=== PATIENT | male | born 1930 | race Caucasian/White ===

== ENCOUNTER → 2016-08-28 | Outpatient (CLI) | payer MEDICARE ==
[2016-08-28 08:19] LABS: Basophils # (A) 0.1 k/uL (0-0.2); Basophils % (A) 1 %; CH 28.2; CHCM 32.4; Eosinophils # (A) 0.3 k/uL (0-0.7); Eosinophils % (A) 4 %; HCT 44.4 % (39.0-53.0); HDW 2.86; HGB 14.2 gm/dL (13.0-17.5); Luc # (Auto) 0.14; Luc % (Auto) 2; Lymphocytes # (A) 1.2 k/uL (1.0-4.8); Lymphocytes % (A) 17 %; MCV 87.4 fL (80.0-100.0); Mean Platelet Volume 6.5; Monocytes # (A) 0.5 k/uL (0-1.0); Monocytes % (A) 7 %; Neutrophils # (A) 4.7 k/uL (1.3-7.7); Neutrophils % (A) 69 %; RBC 5.08 m/uL (4.30-5.90); WBC 6.8 k/uL (3.8-10.6); WBC (Perox) 7.17
[2016-08-28 08:47] LABS: ALT 23 U/L (21-72); AST 28 U/L (17-59); Alkaline Phosphatase 87 U/L (38-126); Anion Gap 11 mmol/L; Blood Urea Nitrogen 16 mg/dL (9-20); Calcium 8.8 mg/dL (8.4-10.2); Carbon Dioxide 27 mmol/L (22-30); Chloride 106 mmol/L (98-107); Cholesterol 102 mg/dL (<200); Glucose 98 mg/dL (74-99); HDL Cholesterol 33 mg/dL (40-60); Non-African American GFR(MDRD) >60 (>60 ml/min/1.73 sqM); Potassium 4.7 mmol/L (3.5-5.1); Sodium 144 mmol/L (137-145); Total Bilirubin 0.7 mg/dL (0.2-1.3); Total Protein 6.7 g/dL (6.3-8.2); Triglycerides 62 mg/dL (<150)
[2016-08-28 10:05] LABS: Prostate Specific Antigen 1.37 ng/mL (0.00-4.00)
== END ==
LOC: LABWHC1 07:44
PROVIDERS: ATTEND Family Medicine
DX: E78.5 Hyperlipidemia, unspecified (principal); Z12.5 Encounter for screening for malignant neoplasm of prostate
CPT/HCPCS: 36415; 80053; 80061; 84153; 84443; 85025

== ENCOUNTER → 2016-10-14 | Outpatient (CLI) | payer MEDICARE ==
--- NOTE | 2016-10-14 11:52 | US ---
EXAMINATION TYPE: US thyroid st tissue head/neck DATE OF EXAM: 10/14/2016 11:13 AM COMPARISON: Prior thyroid ultrasound February 25, 2016. CLINICAL HISTORY: E04.1 Thyroid Nodules. GLAND SIZE: Right Lobe: 3.7 x 1.5 x 1.7 cm Overall Parenchyma: homogenous Left Lobe: 3.7 x 1.4 x 2.0 cm Overall Parenchyma: homogeneous Isthmus Thickness: 0.4 cm NODULES RIGHT: # of nodules measured on right: 2 1. 1.0 X 0.9 x 0.8 cm isoechoic solid nodule at the upper pole with poorly defined margins . This nodule is taller than wide and shows intranodular vascularity. Prior size: 1.8 x 0.9 x 1.3 cm 2. 0.9 X 0.7 x 0.9 cm echogenic solid nodule at the lower pole with poorly defined margins . This n odule is wider than tall and shows intranodular vascularity. Prior size: 1.3 x 1.1 x 1.2 cm LEFT: # of nodules measured on left: 0 ISTHMUS: # of nodules measured in the isthmus: 0 Bilateral neck scanned, no evidence of lymphadenopathy. Thyroid gland remains somewhat small in size and fairly homogeneous in echotexture with 2 right-sided solid nodules felt stable in size and appearance. No new solid or cystic nodules are identified on t paco's study. IMPRESSION: Thyroid gland remains somewhat small in size with stable right-sided solid nodules, no new greater th an 1 cm solid or cystic nodules are identified.
== END ==
LOC: RADUSWWP 10:53
PROVIDERS: ATTEND Surgery
DX: E04.2 Nontoxic multinodular goiter (principal)
CPT/HCPCS: 76536

== ENCOUNTER 2016-12-11 17:59 | Emergency (ER) | payer MEDICARE ==
[2016-12-11 18:23] VITALS: TEMP 97.6
--- NOTE | 2016-12-11 18:47 | ED ---
Fall HPI - General Chief Complaint: Fall Stated Complaint: Fall-Shoulder Pain Time Seen by Provider: 12/11/16 18:27 Source: patient, family, RN notes reviewed Mode of arrival: ambulatory - History of Present Illness Initial Comments: Patient is a 86-year-old male since emergency room for evaluation of fall injury. Patient's daughter is present with patient. Patient's daughter states that patient had a procedure done earlier this morning to remove a lesion over his left eyebrow. Patient's daughter states that they gave patient valium. Patient's daughter states that patient was very unsteady on his feet afterwards because of the Valium. Patient's daughter states that patient was in another room around noon and she heard a thump. Patient states that he was getting off of his electric chair and fell over landing on his right shoulder. Patient states he does not think he hit his head. Patient states that the shoulder pain has been getting worse throughout the day. Patient's Daughter States after the Incident Happened Patient Was Bleeding a Little More from the Incision Site Where the Lesion Was Removed. Patient's daughter states that she was told that patient did not hit his head. patient denies headache, dizziness, changes in vision, neck pain, chest pain, shortness of breath. Patient states that 3 out of 10 right shoulder pain. Patient states pain is worse with movement. Patient denies elbow, forearm or wrist pain. Patient denies paresthesias. Patient denies any other injuries during incident. - Related Data Home Medications Medication Instructions Recorded Confirmed Albuterol Inhaler [Ventolin Hfa 2 puff INHALATION RT-DAILY PRN 08/03/14 12/11/16 Inhaler] Aspirin EC [Ecotrin] 325 mg PO DAILY 08/03/14 12/11/16 Docusate Sodium [Dulcolax Stool 200 mg PO DAILY 08/03/14 12/11/16 Softener] Doxycycline [Vibramycin] 50 mg PO DAILY 08/03/14 12/11/16 Enalapril Maleate [Vasotec] 10 mg PO DAILY 08/03/14 12/11/16 HYDROcodone/APAP 5-325MG [[place] 1 tab PO DAILY PRN 08/03/14 12/11/16 5-325] Multivitamin [Men's Multi-Vitamin] 1 tab PO DAILY 08/03/14 12/11/16 Omeprazole [PriLOSEC] 20 mg PO DAILY 08/03/14 12/11/16 Fluticasone/Salmeterol [Advair 1 inhalation PO RT-BID 07/06/15 12/11/16 250-50 Diskus] Clopidogrel [Plavix] 75 mg PO DAILY 04/07/16 12/11/16 Atorvastatin Calcium [Lipitor] 40 mg PO HS 12/11/16 12/11/16 Previous Rx's Medication Instructions Recorded Nitroglycerin Sl Tabs [Nitrostat] 0.4 mg SUBLINGUAL Q5M PRN #25 tab 08/05/14 Allergies Allergy/AdvReac Type Severity Reaction Status Date / Time adhesive Allergy Rash/Hives Verified 12/11/16 18:51 Review of Systems ROS Statement: Those systems with pertinent positive or pertinent negative responses have been documented in the HPI. ROS Other: All systems not noted in ROS Statement are negative. Past Medical History Past Medical History: Chest Pain / Angina, COPD, GERD/Reflux, Hypertension Additional Past Medical History / Comment(s): 08/04/14 Pt admitted to floor following cardiac cath with PTCA. History of Any Multi-Drug Resistant Organisms: None Reported Past Surgical History: Cholecystectomy, Heart Catheterization, Hernia Repair, Joint Replacement, Orthopedic Surgery Additional Past Surgical History / Comment(s): 08/04/14 Cardiac cath with PTCA. LEFT FEMUR ORIF, PARTIAL LT HIP REPLACEMENT, NIKO CAT SX Past Anesthesia/Blood Transfusion Reactions: No Reported Reaction Past Psychological History: No Psychological Hx Reported Additional Psychological History / Comment(s): Pt states he lives in a home with his daughter-Cecille. He states he is independent and performs his own ADL's. He still drives a car but not at nite. He uses a cane if he needs to walk quite a distance. He has a scooter that he can use for really long distances but rarely needs to. Smoking Status: Former smoker Past Alcohol Use History: Daily Additional Past Alcohol Use History / Comment(s): SMOKES A PIPE Past Drug Use History: None Reported - Past Family History Father Family Medical History: No Reported History Mother Family Medical History: No Reported History General Exam - General Exam Comments Initial Comments: sitting in exam room, no distress. Limitations: no limitations General appearance: alert, in no apparent distress Head exam: Present: atraumatic, normocephalic, normal inspection Eye exam: Present: normal appearance ENT exam: Present: normal exam Neck exam: Present: normal inspection Respiratory exam: Present: normal lung sounds bilaterally. Absent: respiratory distress Cardiovascular Exam: Present: regular rate, normal rhythm, normal heart sounds Right Shoulder Exam: Present: tenderness (tenderness on palpating over the proximal humerus and anterior shoulder joint.). Absent: full ROM (patient can abduct and adduct about 90 without pain), tenderness over AC joint Upper Arm exam: Present: normal inspection Elbow exam: Present: normal inspection Forearm Wrist exam: Present: normal inspection Hand Wrist exam: Present: normal inspection Neuro motor exam: Present: wrist extension intact, thumb opposition intact, thumb IP flexion intact, thumb adduction intact, fingers 2-5 abduction intact Vascular: Present: normal capillary refill (capillary refill less than 2 seconds ), radial pulse (2+), ulnar pulse (2+). Absent: vascular compromise Back exam: Present: normal inspection Neurological exam: Present: alert, oriented X3, CN II-XII intact Psychiatric exam: Present: normal affect, normal mood Skin exam: Present: warm, dry, intact, normal color. Absent: rash Course Vital Signs 12/11/16 18:18 Temperature 97.6 F Pulse Rate 67 Respiratory 20 Rate Blood Pressure 131/80 O2 Sat by Pulse 95 Oximetry Medical Decision Making - Medical Decision Making patient is a 86-year-old male presents emergency room for evaluation of fall injury. Patient complaining of mainly right shoulder pain. No dislocation or deformity noted. X-ray showed no acute findings. CT of brain and C-spine showed no acute findings. Advised patient take Tylenol and to rest and ice and follow-up with primary care provider. Patient and daughter state they understand everything I discussed with them. Return parameters discussed. Case discussed with Dr. Reece. - Radiology Data Radiology results: report reviewed, image reviewed Disposition Clinical Impression: Fall, Contusion of right shoulder Disposition: HOME SELF-CARE Condition: Good Instructions: Fall Prevention for Older Adults (ED), Shoulder Sprain (ED) Additional Instructions: Ice on and off for 10-15 minutes for the next 24-48 hours. Take Tylenol as needed for pain. Please follow-up with primary care provider if symptoms are not improving. If new symptoms develop or symptoms worsen, please return to the ER. Referrals: Bowen Guevara MD [Primary Care Provider] - 1-2 days Time of Disposition: 20:46
--- NOTE | 2016-12-11 20:00 | CT ---
EXAMINATION TYPE: CT brain nelda blakely DATE OF EXAM: 12/11/2016 COMPARISON: NONE HISTORY: Fall today. Patient states no head injury. CT DLP: 1470.00 mGycm Automated exposure control for dose reduction was used. TECHNIQUE: CT scan of the head and cervical spine are performed without contrast. FINDINGS: There is cerebral cortical atrophy. There is no mass effect nor midline shift. There is n o sign of intracranial hemorrhage. The calvarium is intact. There is mild white matter hypodensity. The cervical vertebra have normal alignment. There is narrowing at C5-6 and C6-7 disc spaces. There i s spurring of the endplates from C4 to T1. Facet joints are intact. There is no sign of a fracture. S kull base is intact. I see no bony destructive process. IMPRESSION: Cerebral atrophy. Mild chronic small vessel ischemia. No acute intracranial abnormality. Spondylotic changes in the lower cervical spine. No fracture seen.
--- NOTE | 2016-12-11 20:05 | XR ---
EXAMINATION TYPE: XR shoulder complete RT DATE OF EXAM: 12/11/2016 COMPARISON: NONE HISTORY: Shoulder pain TECHNIQUE: 2 views FINDINGS: There is osteopenia. I see no fracture. Glenohumeral joint is anatomic. There is some calci fication at the inferior glenoid labrum. AC joint is intact. IMPRESSION: Calcification related to some degenerative changes. No fracture seen.
--- NOTE | 2016-12-11 20:06 | XR ---
EXAMINATION TYPE: XR humerus RT DATE OF EXAM: 12/11/2016 COMPARISON: NONE HISTORY: Pain TECHNIQUE: 4 views FINDINGS: I see no fracture nor dislocation. Shoulder joint and elbow joint appear intact. There is s purring on the olecranon process of the ulna. IMPRESSION: Spurring on the proximal ulna. No fracture seen.
[2016-12-11 20:58] VITALS: BP 154/84; PULSE 58; RESP 18
== END 2016-12-11 20:58 | disposition home or self-care (01) ==
LOC: EC 17:59
DX: S40.011A Contusion of right shoulder, initial encounter (principal); K21.9 Gastro-esophageal reflux disease without esophagitis; I10 Essential (primary) hypertension; J44.9 Chronic obstructive pulmonary disease, unspecified; Z87.891 Personal history of nicotine dependence; Z79.82 Long term (current) use of aspirin; Z79.51 Long term (current) use of inhaled steroids; Z79.01 Long term (current) use of anticoagulants; Z79.899 Other long term (current) drug therapy; Z91.048 Other nonmedicinal substance allergy status; Z98.890 Other specified postprocedural states; W19.XXXA Unspecified fall, initial encounter
CPT/HCPCS: 70450; 72125; 99284

== ENCOUNTER 2016-12-13 10:26 | Emergency (ER) | payer MEDICARE ==
[2016-12-13] MEDS ORDERED: MORPHINE SULFATE 4 MG/ML SYRINGE IV STA (10:48)
[2016-12-13] MEDS ORDERED: ONDANSETRON 4 MG/2 ML VIAL IVP STA (10:48)
[2016-12-13] MEDS ORDERED: SODIUM CHLORIDE 0.9% 1,000 ML IV STA (10:49)
--- NOTE | 2016-12-13 10:51 | ED ---
General Adult HPI - General Chief complaint: Abdominal Pain Stated complaint: abdominal pain Time Seen by Provider: 12/13/16 10:40 Source: family, RN notes reviewed Mode of arrival: wheelchair - History of Present Illness Initial comments: Patient 86-year-old male who presents emergency room today with a chief complaint of right-sided dental pain that started yesterday. He does admit some discomfort in the right side of the abdomen. States he did have a fall 2 days ago. States does not recall falling in this site was seen here in the emergency room for some left shoulder pain also had a CT of his head. Since fall occurred because he was on Valium after procedure and was a little unsteady on his feet. Patient denies any headache today. He does admit that he 's had a few episodes of nausea vomiting. States he does have pain in the right lateral aspect of the upper abdomen and lower ribs. States it's tender on palpation and with certain movements. Admits that it's worse when he coughs or sneezes. He states feels like broken ribs that is had in the past. He denies any other complaints or symptoms at this time. Patient denies any recent fever, chills, shortness of breath, chest pain, back pain, numbness or tingling , dysuria or hematuria, constipation or diarrhea, headaches or visual changes, or any other complaints. - Related Data Home Medications Medication Instructions Recorded Confirmed Albuterol Inhaler [Ventolin Hfa 2 puff INHALATION RT-DAILY PRN 08/03/14 12/13/16 Inhaler] Aspirin EC [Ecotrin] 325 mg PO DAILY 08/03/14 12/13/16 Docusate Sodium [Dulcolax Stool 200 mg PO DAILY 08/03/14 12/13/16 Softener] Doxycycline [Vibramycin] 50 mg PO DAILY 08/03/14 12/13/16 Enalapril Maleate [Vasotec] 5 mg PO DAILY 08/03/14 12/13/16 HYDROcodone/APAP 5-325MG [[place] 1 tab PO DAILY PRN 08/03/14 12/13/16 5-325] Multivitamin [Men's Multi-Vitamin] 1 tab PO DAILY 08/03/14 12/13/16 Omeprazole [PriLOSEC] 20 mg PO DAILY 08/03/14 12/13/16 Fluticasone/Salmeterol [Advair 1 inhalation PO RT-BID 07/06/15 12/13/16 250-50 Diskus] Clopidogrel [Plavix] 75 mg PO DAILY 04/07/16 12/13/16 Atorvastatin Calcium [Lipitor] 40 mg PO HS 12/11/16 12/13/16 Previous Rx's Medication Instructions Recorded Nitroglycerin Sl Tabs [Nitrostat] 0.4 mg SUBLINGUAL Q5M PRN #25 tab 08/05/14 Ciprofloxacin HCl [Cipro] 500 mg PO Q12HR #20 day 12/13/16 Hydrocodone/Acetaminophen [[place] 1 each PO Q6HR PRN #20 tab 12/13/16 5-325] Allergies Allergy/AdvReac Type Severity Reaction Status Date / Time adhesive Allergy Rash/Hives Verified 12/13/16 11:05 Review of Systems ROS Statement: Those systems with pertinent positive or pertinent negative responses have been documented in the HPI. ROS Other: All systems not noted in ROS Statement are negative. Past Medical History Past Medical History: Chest Pain / Angina, COPD, GERD/Reflux, Hypertension Additional Past Medical History / Comment(s): 08/04/14 Pt admitted to floor following cardiac cath with PTCA. History of Any Multi-Drug Resistant Organisms: None Reported Past Surgical History: Cholecystectomy, Heart Catheterization, Hernia Repair, Joint Replacement, Orthopedic Surgery Additional Past Surgical History / Comment(s): 08/04/14 Cardiac cath with PTCA. LEFT FEMUR ORIF, PARTIAL LT HIP REPLACEMENT, NIKO CAT SX Past Anesthesia/Blood Transfusion Reactions: No Reported Reaction Past Psychological History: No Psychological Hx Reported Additional Psychological History / Comment(s): Pt states he lives in a home with his daughter-Cecille. He states he is independent and performs his own ADL's. He still drives a car but not at nite. He uses a cane if he needs to walk quite a distance. He has a scooter that he can use for really long distances but rarely needs to. Smoking Status: Former smoker Past Alcohol Use History: Daily Additional Past Alcohol Use History / Comment(s): SMOKES A PIPE Past Drug Use History: None Reported - Past Family History Father Family Medical History: No Reported History Mother Family Medical History: No Reported History General Exam - General Exam Comments Initial Comments: General: The patient is awake and alert, in no distress, and does not appear acutely ill. Eye: Pupils are equal, round and reactive to light, extra-ocular movements are intact. No nystagmus. There is normal conjunctiva bilaterally. No signs of icterus. Ears, nose, mouth and throat: There are moist mucous membranes and no oral lesions. Neck: The neck is supple, there is no tenderness or JVD. Cardiovascular: There is a regular rate and rhythm. No murmur, rub or gallop is appreciated. Respiratory: Lungs are clear to auscultation, respirations are non-labored, breath sounds are equal. No wheezes, stridor, rales, or rhonchi. Gastrointestinal: Normal appearance of the abdomen. Normal bruising or ecchymosis. Normal bowel sounds. Abdomen soft on palpation. Mild tenderness in the right upper quadrant. No rebound tenderness. No guarding. No CVA tenderness. Musculoskeletal: Normal ROM. Normal appearance of the ribs. No obvious deformity. It is tender over the right lower lateral aspect. Strength 5/5. Sensation intact. Pulses equal bilaterally 2+. Neurological: A&O x 3. CN II-XII intact, There are no obvious motor or sensory deficits. Coordination appears grossly intact. Speech is normal. Skin: Skin is warm and dry and no rashes or lesions are noted. Psychiatric: Cooperative, appropriate mood & affect, normal judgment. Course Vital Signs 12/13/16 12/13/16 10:33 12:29 Temperature 97.2 F L Pulse Rate 75 60 Respiratory 20 20 Rate Blood Pressure 145/98 126/72 O2 Sat by Pulse 98 Oximetry Medical Decision Making - Medical Decision Making Case discussed in detail with attending physician Dr. Gramajo. Patient's labs been reviewed. Does show mildly elevated lipase greater than 600. Patient denies any history of pancreatitis. Patient's urinalysis does show some white cells as well. He denies any symptoms of dysuria or UTI. Patient's x-ray revealing no displaced fracture of the right ribs. CT of the abdomen and pelvis performed showing no acute abnormalities. Results were discussed with the patient. Options were discussed about admission. At this time patient states was like to go home. Patient will be discharged home he does have [place] that he takes at home brought has 2 tablets left. Given a short prescription pain medication. He is advised close follow-up the family doctor for repeat urinalysis and lipase testing. Advised return here to the emergency room if any symptoms increase or worsen or for any other concerns. Patient be placed on antibiotics cover for urinary tract infection. - Lab Data Result diagrams: 12/13/16 11:02 12/13/16 11:02 Lab Results 12/13/16 12/13/16 12/13/16 Range/Units 11:02 11:02 11:02 WBC 8.6 (3.8-10.6) k/uL RBC 4.66 (4.30-5.90) m/uL Hgb 13.4 (13.0-17.5) gm/dL Hct 41.3 (39.0-53.0) % MCV 88.8 (80.0-100.0) fL MCH 28.7 (25.0-35.0) pg MCHC 32.4 (31.0-37.0) g/dL RDW 16.2 H (11.5-15.5) % Plt Count 195 (150-450) k/uL Neutrophils % 80 % Lymphocytes % 8 % Monocytes % 8 % Eosinophils % 3 % Basophils % 1 % Neutrophils # 6.9 (1.3-7.7) k/uL Lymphocytes # 0.7 L (1.0-4.8) k/uL Monocytes # 0.7 (0-1.0) k/uL Eosinophils # 0.2 (0-0.7) k/uL Basophils # 0.0 (0-0.2) k/uL Anisocytosis Slight PT 11.5 (9.0-12.0) sec INR 1.2 (<1.1) APTT 24.6 (22.0-30.0) sec Sodium 140 (137-145) mmol/L Potassium 4.9 (3.5-5.1) mmol/L Chloride 108 H (98-107) mmol/L Carbon Dioxide 25 (22-30) mmol/L Anion Gap 7 mmol/L BUN 18 (9-20) mg/dL Creatinine 0.94 (0.66-1.25) mg/dL Est GFR (MDRD) Af Amer >60 (>60 ml/min/1.73 sqM) Est GFR (MDRD) Non-Af >60 (>60 ml/min/1.73 sqM) Glucose 91 (74-99) mg/dL Calcium 8.6 (8.4-10.2) mg/dL Total Bilirubin 0.7 (0.2-1.3) mg/dL AST 28 (17-59) U/L ALT 26 (21-72) U/L Alkaline Phosphatase 99 (38-126) U/L Total Protein 6.6 (6.3-8.2) g/dL Albumin 3.6 (3.5-5.0) g/dL Amylase 137 H (30-110) U/L Lipase 622 H (23-300) U/L Urine Color Urine Appearance (Clear) Urine pH (5.0-8.0) Ur Specific [place] (1.001-1.035) Urine Protein (Negative) Urine Glucose (UA) (Negative) Urine Ketones (Negative) Urine Blood (Negative) Urine Nitrite (Negative) Urine Bilirubin (Negative) Urine Urobilinogen (<2.0) mg/dL Ur Leukocyte Esterase (Negative) Urine RBC (0-5) /hpf Urine WBC (0-5) /hpf Urine Bacteria (None) /hpf Urine Mucus (None) /hpf 12/13/16 Range/Units 12:40 WBC (3.8-10.6) k/uL RBC (4.30-5.90) m/uL Hgb (13.0-17.5) gm/dL Hct (39.0-53.0) % MCV (80.0-100.0) fL MCH (25.0-35.0) pg MCHC (31.0-37.0) g/dL RDW (11.5-15.5) % Plt Count (150-450) k/uL Neutrophils % % Lymphocytes % % Monocytes % % Eosinophils % % Basophils % % Neutrophils # (1.3-7.7) k/uL Lymphocytes # (1.0-4.8) k/uL Monocytes # (0-1.0) k/uL Eosinophils # (0-0.7) k/uL Basophils # (0-0.2) k/uL Anisocytosis PT (9.0-12.0) sec INR (<1.1) APTT (22.0-30.0) sec Sodium (137-145) mmol/L Potassium (3.5-5.1) mmol/L Chloride (98-107) mmol/L Carbon Dioxide (22-30) mmol/L Anion Gap mmol/L BUN (9-20) mg/dL Creatinine (0.66-1.25) mg/dL Est GFR (MDRD) Af Amer (>60 ml/min/1.73 sqM) Est GFR (MDRD) Non-Af (>60 ml/min/1.73 sqM) Glucose (74-99) mg/dL Calcium (8.4-10.2) mg/dL Total Bilirubin (0.2-1.3) mg/dL AST (17-59) U/L ALT (21-72) U/L Alkaline Phosphatase (38-126) U/L Total Protein (6.3-8.2) g/dL Albumin (3.5-5.0) g/dL Amylase (30-110) U/L Lipase (23-300) U/L Urine Color Yellow Urine Appearance Cloudy (Clear) Urine pH 5.5 (5.0-8.0) Ur Specific [place] 1.039 H (1.001-1.035) Urine Protein Trace H (Negative) Urine Glucose (UA) Negative (Negative) Urine Ketones Negative (Negative) Urine Blood Negative (Negative) Urine Nitrite Positive (Negative) Urine Bilirubin Negative (Negative) Urine Urobilinogen <2.0 (<2.0) mg/dL Ur Leukocyte Esterase Large H (Negative) Urine RBC 5 (0-5) /hpf Urine WBC 76 H (0-5) /hpf Urine Bacteria Rare H (None) /hpf Urine Mucus Rare H (None) /hpf Disposition Clinical Impression: Contusion of rib, Elevated lipase, UTI (urinary tract infection) Disposition: HOME SELF-CARE Condition: Good Instructions: Rib Contusion (ED) Additional Instructions: Please use medication as discussed. Please follow-up with family doctor in the next 2 days. Please return to emergency room if the symptoms increase or worsen or for any other concerns. Prescriptions: Ciprofloxacin HCl [Cipro] 500 mg PO Q12HR #20 day Hydrocodone/Acetaminophen [[place] 5-325] 1 each PO Q6HR PRN #20 tab PRN Reason: Pain Referrals: Bowen Guevara MD [Primary Care Provider] - 1-2 days Time of Disposition: 13:15
[2016-12-13 11:12] LABS: Anisocytosis Slight; Basophils % (A) 1 %; CH 28.7; CHCM 32.5; Eosinophils # (A) 0.2 k/uL (0-0.7); Eosinophils % (A) 3 %; HCT 41.3 % (39.0-53.0); HDW 2.53; HGB 13.4 gm/dL (13.0-17.5); Luc # (Auto) 0.12; Luc % (Auto) 1; Lymphocytes # (A) 0.7 k/uL (1.0-4.8); Lymphocytes % (A) 8 %; MCH 28.7 pg (25.0-35.0); MCHC 32.4 g/dL (31.0-37.0); MCV 88.8 fL (80.0-100.0); Mean Platelet Volume 7.1; Monocytes # (A) 0.7 k/uL (0-1.0); Monocytes % (A) 8 %; Neutrophils # (A) 6.9 k/uL (1.3-7.7); Neutrophils % (A) 80 %; RBC 4.66 m/uL (4.30-5.90); RDW 16.2 % (11.5-15.5); WBC 8.6 k/uL (3.8-10.6); WBC (Perox) 8.97
[2016-12-13 11:20] LABS: INR 1.2 (<1.1)
[2016-12-13 11:21] LABS: Partial Thromboplastin Time 24.6 sec (22.0-30.0); Prothrombin Time 11.5 sec (9.0-12.0)
--- NOTE | 2016-12-13 11:24 | XR ---
EXAMINATION TYPE: XR ribs RT w pa chest x-ray DATE OF EXAM: 12/13/2016 CLINICAL HISTORY: Chest and right-sided rib pain after fall injury 2 days ago. TECHNIQUE: Single frontal view of the chest is obtained. A frontal and oblique images of the right-si ded ribs are acquired. COMPARISON: Chest x-ray July 06, 2015. FINDINGS: There is chronic emphysematous change without suspicious new focal air space opacity, pleu ral effusion, or pneumothorax seen. There is left greater than right bibasilar scarring and/or atele ctasis. The cardiac silhouette size is upper limits of normal with atherosclerotic and ectatic thorac ic aorta. Retrocardiac opacity consistent with moderate to large size hiatal hernia is redemonstrated . Osseous structures are demineralized. Dedicated images of the right-sided ribs show no convincing evidence of acute displaced right-sided r ib fracture. Cholecystectomy clips are noted. IMPRESSION: 1. Chronic changes without acute pulmonary process. 2. No acute displaced right-sided rib fractures are evident.
[2016-12-13 11:29] LABS: ALT 26 U/L (21-72); AST 28 U/L (17-59); Alkaline Phosphatase 99 U/L (38-126); Amylase 137 U/L (30-110); Anion Gap 7 mmol/L; Blood Urea Nitrogen 18 mg/dL (9-20); Calcium 8.6 mg/dL (8.4-10.2); Carbon Dioxide 25 mmol/L (22-30); Chloride 108 mmol/L (98-107); Glucose 91 mg/dL (74-99); Non-African American GFR(MDRD) >60 (>60 ml/min/1.73 sqM); Potassium 4.9 mmol/L (3.5-5.1); Sodium 140 mmol/L (137-145); Total Bilirubin 0.7 mg/dL (0.2-1.3); Total Protein 6.6 g/dL (6.3-8.2)
[2016-12-13] MEDS ORDERED: RX INFO: IV CONTRAST WAS GIVEN 1 EACH MISC MISCELLANE PRN (11:35)
--- NOTE | 2016-12-13 12:12 | CT ---
EXAMINATION TYPE: CT abdomen pelvis w con DATE OF EXAM: 12/13/2016 COMPARISON: NONE HISTORY: Generalized abdominal pain not further specified per order. CT DLP: 516 mGycm, Automated Exposure Control for Dose Reduction was Utilized. CONTRAST: CT scan of the abdomen and pelvis is performed without oral but with IV Contrast, patient injected wi th 100 mL of Omnipaque 300. FINDINGS: LUNG BASES: Dependent atelectatic change is present bilaterally. LIVER/GB: Cholecystectomy clips are noted. PANCREAS: No significant abnormality is seen. SPLEEN: Scattered calcifications throughout the spleen are present product of old granulomatous disea se. A few small splenules in splenic hilum are present. ADRENALS: No significant abnormality is seen. KIDNEYS: No significant abnormality is seen. BOWEL: There is large hiatal hernia with inversion or malrotation of herniated stomach is greater cur vature is more cranial in location. Evaluation bowel is suboptimal secondary to lack of enteric contr ast. No suspicious small or large bowel dilatation is seen. Sigmoid colonic diverticulosis is present . There is no convincing CT evidence for acute diverticulitis. PROSTATE/SEMINAL VESICLES: No gross abnormality seen. LYMPH NODES: No greater than 1cm abdominal or pelvic lymph nodes are appreciated. OSSEOUS STRUCTURES: Metallic hardware from left hip arthroplasty is seen, this causes adjacent streak artifact limiting evaluation of pelvic structures. There is well-defined ossific fragmentation from the greater trochanter may reflect old trauma. Osseous structures are demineralized. Moderate multile amy spurring of the spine is present. There is hemangioma at L2 level noted anteriorly. OTHER: There is mild to moderate calcified atherosclerotic change of aorta extending into branch vess els. IMPRESSION: No significant acute finding is seen to account for patient's clinical symptoms. There i s redemonstration of large hiatal hernia containing malrotated stomach. No bowel obstruction is seen. There is sigmoid colonic diverticulosis without convincing CT evidence for diverticulitis. There is evidence of old granulomatous disease.
[2016-12-13 13:06] LABS: Appearance,Urine Cloudy (Clear); Bacteria,Urine Rare /hpf; Bilirubin,Urine Negative (Negative); Glucose,Urine (UA) Negative (Negative); Ketones,Urine Negative (Negative); Leukocyte Esterase,Urine Large (Negative); Mucus,Urine Rare /hpf; Nitrite,Urine Positive (Negative); PH, Urine 5.5 (5.0-8.0); Particle Count 48277; Protein,Urine Trace (Negative); RBC,Urine 5 /hpf (0-5); Specific Gravity,Urine 1.039 (1.001-1.035); UA Billing (MACRO vs. MICRO) MICRO; Urobilinogen,Urine <2.0 mg/dL (<2.0); WBC,Urine 76 /hpf (0-5)
[2016-12-13 13:50] VITALS: BP 113/56; PULSE 76; RESP 18; TEMP 98.8
== END 2016-12-13 13:36 | disposition home or self-care (01) ==
LOC: EC 10:26
DX: S20.211A Contusion of right front wall of thorax, initial encounter (principal); N39.0 Urinary tract infection, site not specified; R74.8 Abnormal levels of other serum enzymes; K08.89 Other specified disorders of teeth and supporting structures; R10.11 Right upper quadrant pain; R11.2 Nausea with vomiting, unspecified; I10 Essential (primary) hypertension; K21.9 Gastro-esophageal reflux disease without esophagitis; J44.9 Chronic obstructive pulmonary disease, unspecified; Z86.79 Personal history of other diseases of the circulatory system; Z79.82 Long term (current) use of aspirin; Z79.02 Long term (current) use of antithrombotics/antiplatelets; Z79.51 Long term (current) use of inhaled steroids; Z79.899 Other long term (current) drug therapy; Z91.048 Other nonmedicinal substance allergy status; Z95.818 Presence of other cardiac implants and grafts; Z90.49 Acquired absence of other specified parts of digestive tract; W18.30XA Fall on same level, unspecified, initial encounter
CPT/HCPCS: 36415; 80053; 82150; 83690; 85025; 85610; 85730; 81001; 71101; 74177; 99284; 96374; 96375; 96361 ×2; J2270; J2405; Q9967

== ENCOUNTER → 2017-06-04 | Outpatient (CLI) | payer MEDICARE ==
[2017-06-04 08:04] LABS: ALT 35 U/L (21-72); AST 32 U/L (17-59); Alkaline Phosphatase 89 U/L (38-126); Anion Gap 5 mmol/L; Blood Urea Nitrogen 15 mg/dL (9-20); Calcium 8.7 mg/dL (8.4-10.2); Carbon Dioxide 28 mmol/L (22-30); Chloride 107 mmol/L (98-107); Cholesterol 102 mg/dL (<200); Glucose 100 mg/dL (74-99); HDL Cholesterol 36 mg/dL (40-60); Non-African American GFR(MDRD) >60 (>60 ml/min/1.73 sqM); Potassium 4.6 mmol/L (3.5-5.1); Sodium 140 mmol/L (137-145); Total Bilirubin 0.5 mg/dL (0.2-1.3); Total Protein 6.5 g/dL (6.3-8.2)
== END | disposition home or self-care (01) ==
LOC: LABWHC1 06:52
PROVIDERS: ATTEND Internal Medicine Interventional Cardiology
DX: E78.2 Mixed hyperlipidemia (principal)
CPT/HCPCS: 36415; 80053; 80061

== ENCOUNTER 2017-08-12 13:37 | Emergency (ER) | payer MEDICARE, OTHER ==
[2017-08-12 13:44] VITALS: PULSE 56
[2017-08-12] MEDS ORDERED: HYDROcodone/APAP 5-325MG 1 EACH TAB PO STA (13:59)
--- NOTE | 2017-08-12 14:40 | XR ---
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 The lungs demonstrate subsegmental atelectasis at the left lung base. Calcified lymph node in the left hilum. Underlying COPD suggested . Diffuse osteopenia noted. Chronic appearing deformity involving the anterolateral left eighth rib. There is a deformity involvi ng the anterolateral left fifth rib which may represent a nondisplaced hairline fracture. IMPRESSION: 1. Correlate for point tenderness anterolateral margin left fifth rib for minimally displaced fractur e.
--- NOTE | 2017-08-12 15:42 | ED ---
Fall HPI - General Chief Complaint: Fall Stated Complaint: Fall/SOB/Rib pain Time Seen by Provider: 08/12/17 13:51 Source: patient, family Mode of arrival: wheelchair - History of Present Illness Initial Comments: This 86-year-old white male presents complaining of some left rib pain. He apparently was shoveling some snow earlier today when he fell and landed on his left ribs. He has point tenderness present to the left inferior lateral ribs. He states that it is worse with any movement or deep inspiration. He denies any other injuries. He denies any head injury, neck pain, or back pain. There is no abdominal pain. He denies any other complaints or modifying factors. He states that he does have [place] at home to take when necessary but he only has a few pills left. - Related Data Home Medications Medication Instructions Recorded Confirmed Albuterol Inhaler [Ventolin Hfa 2 puff INHALATION RT-Q6H PRN 08/03/14 08/12/17 Inhaler] Aspirin EC [Ecotrin] 325 mg PO DAILY 08/03/14 08/12/17 Docusate Sodium [Dulcolax Stool 200 mg PO DAILY 08/03/14 08/12/17 Softener] Doxycycline [Vibramycin] 50 mg PO DAILY 08/03/14 08/12/17 HYDROcodone/APAP 5-325MG [[place] 1 tab PO DAILY PRN 08/03/14 08/12/17 5-325] Multivitamin [Men's Multi-Vitamin] 1 tab PO DAILY 08/03/14 08/12/17 Omeprazole [PriLOSEC] 20 mg PO DAILY 08/03/14 08/12/17 Fluticasone/Salmeterol [Advair 1 inhalation PO RT-BID 07/06/15 08/12/17 250-50 Diskus] Atorvastatin Calcium [Lipitor] 40 mg PO HS 12/11/16 08/12/17 Enalapril Maleate [Vasotec] 5 mg PO DAILY 08/12/17 08/12/17 Metoprolol Tartrate [Lopressor] 25 mg PO BID 08/12/17 08/12/17 Salmeterol Xinafoate [Serevent 1 puff INHALATION RT-DAILY 08/12/17 08/12/17 Diskus] Previous Rx's Medication Instructions Recorded Nitroglycerin Sl Tabs [Nitrostat] 0.4 mg SUBLINGUAL Q5M PRN #25 tab 08/05/14 Hydrocodone/Acetaminophen [[place] 1 - 2 each PO Q4HR PRN #20 tab 08/12/17 5-325] Allergies Allergy/AdvReac Type Severity Reaction Status Date / Time adhesive Allergy Rash/Hives Verified 08/12/17 14:11 Review of Systems ROS Statement: Those systems with pertinent positive or pertinent negative responses have been documented in the HPI. ROS Other: All systems not noted in ROS Statement are negative. Past Medical History Past Medical History: Chest Pain / Angina, COPD, GERD/Reflux, Hypertension Additional Past Medical History / Comment(s): cardiac cath with PTCA. History of Any Multi-Drug Resistant Organisms: None Reported Past Surgical History: Cholecystectomy, Heart Catheterization, Hernia Repair, Joint Replacement, Orthopedic Surgery Additional Past Surgical History / Comment(s): 08/04/14 Cardiac cath with PTCA. LEFT FEMUR ORIF, PARTIAL LT HIP REPLACEMENT, NIKO CAT SX Past Anesthesia/Blood Transfusion Reactions: No Reported Reaction Past Psychological History: No Psychological Hx Reported Smoking Status: Former smoker Past Alcohol Use History: Daily Past Drug Use History: None Reported - Past Family History Father Family Medical History: No Reported History Mother Family Medical History: No Reported History General Exam - General Exam Comments Initial Comments: GENERAL: The patient is well nourished and well hydrated. VITAL SIGNS: Heart rate, blood pressure, respiratory rate reviewed as recorded in nurse's notes. EYES: Pupils are round and reactive. Extraocular movements are intact. No conjunctival / lid redness or swelling. ENT: No external evidence of injury, swelling, or ecchymosis. Airway is patent. Throat is clear. NECK: Nontender. No swelling or evidence of injury. No subcutaneous emphysema. Trachea is midline. No thyroid mass. HEART: Regular rate and rhythm. Good peripheral pulses. LUNGS/CHEST: Breath sounds clear and equal bilaterally. No rales, rhonchi, or wheezes. There is tenderness noted to the left inferior anterior lateral ribs. There is no ecchymosis or subcutaneous emphysema. ABDOMEN: Abdomen soft without tenderness. No palpable masses or organomegaly. No peritoneal signs. No abdominal wall swelling or ecchymosis. EXTREMITIES: No extremity tenderness. Normal muscle tone and function. No thoracolumbar tenderness. NEUROLOGIC: Sensation is grossly intact. Cranial nerve exam reveals face is symmetrical, tongue is midline, speech is clear. SKIN: No abrasions or ecchymosis is noted. No induration or masses noted. PSYCHIATRIC: Alert and oriented. Appropriate behavior and judgment. Limitations: no limitations Course Vital Signs 08/12/17 13:41 Temperature 98.2 F Pulse Rate 56 L Respiratory 18 Rate Blood Pressure 114/60 O2 Sat by Pulse 98 Oximetry Medical Decision Making - Medical Decision Making The patient was seen and examined. An x-ray was taken of the chest and left ribs. The radiologist notes a possible left fifth minimally displaced rib fracture. Upon my review, there appears to be a minimally displaced left 11th rib fracture. There is no evidence of pneumothorax or subcutaneous emphysema. It is felt as though he is stable for discharge. He received 2 [place] in the ER. Is counseled regarding his diagnosis in detail. Disposition Clinical Impression: Fall, Rib fracture Disposition: HOME SELF-CARE Condition: Good Instructions: Fall Prevention for Older Adults (ED), Rib Fracture (ED) Prescriptions: Hydrocodone/Acetaminophen [[place] 5-325] 1 - 2 each PO Q4HR PRN #20 tab PRN Reason: Pain Referrals: Bowen Guevara MD [Primary Care Provider] - 08/17/17 Time of Disposition: 15:41
[2017-08-12 15:52] VITALS: BP 121/62; RESP 17; TEMP 97.4
== END 2017-08-12 16:03 | disposition home or self-care (01) ==
LOC: EC 13:37
DX: S22.32XA Fracture of one rib, left side, initial encounter for closed fracture (principal); J44.9 Chronic obstructive pulmonary disease, unspecified; K21.9 Gastro-esophageal reflux disease without esophagitis; I10 Essential (primary) hypertension; Z87.891 Personal history of nicotine dependence; Z79.51 Long term (current) use of inhaled steroids; Z79.82 Long term (current) use of aspirin; Z79.899 Other long term (current) drug therapy; Z91.048 Other nonmedicinal substance allergy status; W00.0XXA Fall on same level due to ice and snow, initial encounter; Y93.H1 Activity, digging, shoveling and raking; Y92.89 Other specified places as the place of occurrence of the external cause; Y99.0 Civilian activity done for income or pay
CPT/HCPCS: 99283

== ENCOUNTER → 2017-12-17 | Outpatient (CLI) | payer MEDICARE ==
[2017-12-17 07:58] LABS: ALT 36 U/L (21-72); AST 37 U/L (17-59); Cholesterol 118 mg/dL (<200); HDL Cholesterol 41 mg/dL (40-60); LDL Cholesterol,Calculated 66 mg/dL (0-99); Triglycerides 56 mg/dL (<150)
== END | disposition home or self-care (01) ==
LOC: LABWHC1 06:51
PROVIDERS: ATTEND Internal Medicine Interventional Cardiology
DX: E78.2 Mixed hyperlipidemia (principal)
CPT/HCPCS: 36415; 80061; 84450; 84460

== ENCOUNTER 2018-01-16 10:26 | Observation (INO) | payer MEDICARE ==
[2018-01-16] MEDS ORDERED: NALOXONE 0.4 MG/ML 1 ML VIAL IV PRN (11:09)
--- NOTE | 2018-01-16 11:09 | ED ---
General Adult HPI - General Chief complaint: Recheck/Abnormal Lab/Rx Stated complaint: Difficulty swallowing Time Seen by Provider: 01/16/18 10:48 Source: patient, RN notes reviewed Mode of arrival: ambulatory Limitations: physical limitation - History of Present Illness Initial comments: Patient is a pleasant 87-year-old male presenting to the emergency department with difficulty swallowing. Onset was this morning. Patient has not been able to tolerate oral intake all day today. Patient did pretty well yesterday. Patient does have a history of similar symptoms previously associated with stricture and did need esophageal dilation. Patient states this was several years ago. No pain. No dyspnea. - Related Data Home Medications Medication Instructions Recorded Confirmed Albuterol Inhaler [Ventolin Hfa 2 puff INHALATION RT-Q6H PRN 08/03/14 08/12/17 Inhaler] Aspirin EC [Ecotrin] 325 mg PO DAILY 08/03/14 08/12/17 Docusate Sodium [Dulcolax Stool 200 mg PO DAILY 08/03/14 08/12/17 Softener] Doxycycline [Vibramycin] 50 mg PO DAILY 08/03/14 08/12/17 HYDROcodone/APAP 5-325MG [[place] 1 tab PO DAILY PRN 08/03/14 08/12/17 5-325] Multivitamin [Men's Multi-Vitamin] 1 tab PO DAILY 08/03/14 08/12/17 Omeprazole [PriLOSEC] 20 mg PO DAILY 08/03/14 08/12/17 Fluticasone/Salmeterol [Advair 1 inhalation PO RT-BID 07/06/15 08/12/17 250-50 Diskus] Atorvastatin Calcium [Lipitor] 40 mg PO HS 12/11/16 08/12/17 Enalapril Maleate [Vasotec] 5 mg PO DAILY 08/12/17 08/12/17 Metoprolol Tartrate [Lopressor] 25 mg PO BID 08/12/17 08/12/17 Salmeterol Xinafoate [Serevent 1 puff INHALATION RT-DAILY 08/12/17 08/12/17 Diskus] Previous Rx's Medication Instructions Recorded Nitroglycerin Sl Tabs [Nitrostat] 0.4 mg SUBLINGUAL Q5M PRN #25 tab 08/05/14 Hydrocodone/Acetaminophen [[place] 1 - 2 each PO Q4HR PRN #20 tab 08/12/17 5325] Allergies Allergy/AdvReac Type Severity Reaction Status Date / Time adhesive Allergy Rash/Hives Verified 08/12/17 14:11 Review of Systems ROS Statement: Those systems with pertinent positive or pertinent negative responses have been documented in the HPI. ROS Other: All systems not noted in ROS Statement are negative. Constitutional: Denies: fever Eyes: Denies: eye pain ENT: Denies: ear pain Respiratory: Denies: cough, dyspnea Cardiovascular: Denies: chest pain Endocrine: Denies: fatigue Gastrointestinal: Denies: abdominal pain, nausea Genitourinary: Denies: dysuria Musculoskeletal: Denies: back pain Skin: Denies: rash Neurological: Denies: headache Past Medical History Past Medical History: Chest Pain / Angina, COPD, GERD/Reflux, Hypertension Additional Past Medical History / Comment(s): cardiac cath with PTCA. History of Any Multi-Drug Resistant Organisms: None Reported Past Surgical History: Cholecystectomy, Heart Catheterization, Hernia Repair, Joint Replacement, Orthopedic Surgery Additional Past Surgical History / Comment(s): 08/04/14 Cardiac cath with PTCA. LEFT FEMUR ORIF, PARTIAL LT HIP REPLACEMENT, NIKO CAT SX Past Anesthesia/Blood Transfusion Reactions: No Reported Reaction Past Psychological History: No Psychological Hx Reported Smoking Status: Former smoker Past Alcohol Use History: Occasional Past Drug Use History: None Reported - Past Family History Father Family Medical History: No Reported History Mother Family Medical History: No Reported History General Exam Limitations: no limitations General appearance: alert, in no apparent distress Head exam: Present: atraumatic Eye exam: Present: normal appearance, PERRL ENT exam: Present: normal oropharynx Neck exam: Present: normal inspection Respiratory exam: Present: normal lung sounds bilaterally Cardiovascular Exam: Present: regular rate, normal rhythm GI/Abdominal exam: Present: soft. Absent: tenderness Extremities exam: Present: normal inspection Back exam: Present: normal inspection Neurological exam: Present: alert Psychiatric exam: Present: normal affect, normal mood Skin exam: Present: normal color Course Vital Signs 01/16/18 10:37 Temperature 97.9 F Pulse Rate 58 L Respiratory 18 Rate Blood Pressure 114/69 O2 Sat by Pulse 97 Oximetry Medical Decision Making - Medical Decision Making Case was discussed with Dr. Darling, who would like patient admitted and he will see him later for probable scope in the morning. Patient and family updated. Disposition Clinical Impression: Esophageal stricture Disposition: ADMITTED IP TO THIS HOSP Referrals: Bowen Guevara MD [Primary Care Provider] - 1-2 days Decision Time: 11:09
[2018-01-16] MEDS: PANTOPRAZOLE 40 MG/10 ML VIAL IV SCH (11:45)
[2018-01-16] MEDS: SODIUM CHLORIDE 0.9% 1,000 ML IV SCH ×2 (11:46→21:37)
[2018-01-16 11:53] LABS: Basophils % (A) 1 %; Eosinophils # (A) 0.2 k/uL (0-0.7); Eosinophils % (A) 3 %; HCT 41.3 % (39.0-53.0); HGB 14.1 gm/dL (13.0-17.5); Lymphocytes # (A) 1.1 k/uL (1.0-4.8); Lymphocytes % (A) 14 %; MCH 30.6 pg (25.0-35.0); MCV 89.8 fL (80.0-100.0); Mean Platelet Volume 7.1; Monocytes # (A) 0.7 k/uL (0-1.0); Monocytes % (A) 9 %; Neutrophils # (A) 5.4 k/uL (1.3-7.7); Neutrophils % (A) 72 %; Platelet Count 224 k/uL (150-450); RDW 13.8 % (11.5-15.5); WBC 7.5 k/uL (3.8-10.6)
[2018-01-16 12:03] LABS: ALT 35 U/L (21-72); AST 34 U/L (17-59); Albumin 3.6 g/dL (3.5-5.0); Alkaline Phosphatase 93 U/L (38-126); Anion Gap 8 mmol/L; Blood Urea Nitrogen 20 mg/dL (9-20); Calcium 8.7 mg/dL (8.4-10.2); Carbon Dioxide 27 mmol/L (22-30); Chloride 105 mmol/L (98-107); Glucose 88 mg/dL (74-99); Potassium 4.5 mmol/L (3.5-5.1); Sodium 140 mmol/L (137-145); Total Bilirubin 0.7 mg/dL (0.2-1.3); Total Protein 6.2 g/dL (6.3-8.2)
[2018-01-16 12:05] LABS: INR 1.1 (<1.2); Prothrombin Time 10.7 sec (9.0-12.0)
[2018-01-16 12:13] VITALS: RESP 16
[2018-01-16] MEDS ORDERED: ALBUTEROL NEBULIZED 2.5 MG/3 ML INHALATION PRN (13:04)
[2018-01-16 19:40] VITALS: BMI 24.1
[2018-01-16] MEDS ORDERED: ATORVASTATIN 40 MG TAB PO SCH (21:00)
[2018-01-16] MEDS: METOPROLOL TARTRATE 25 MG TAB PO SCH (21:35)
[2018-01-16] MEDS: SYMBICORT 80-4.5 MCG INHALER INHALATION SCH (22:19)
--- NOTE | 2018-01-16 23:17 | P.HPIM ---
History of Present Illness H&P Date: 01/16/18 Chief Complaint: Nausea and vomiting and unable to swallow Patient is a 87-year-old male with a known history of COPD, GERD, hypertension and previous history of esophageal stricture dilatation came to ER with complaints of vomiting and unable to keep down food with difficulty swallowing. Patient was at breakfast this morning and suddenly he is not able to swallow and continues to throw up whatever he eats. Patient had this symptom all day long. Patient otherwise denied any chest pain or shortness of breath. No headache or dizziness. No fever no chills no chills. Patient did pretty well yesterday. Patient does have a history of similar symptoms previously associated with stricture and did need esophageal dilation. Patient states this was several years ago. No pain. No dyspnea. Denied any recent illnesses or sick contacts. No abdominal pain. Review of Systems Constitutional: Patient denies any fever or chills . No generalized weakness or weight loss. Abdomen: Patient denied any nausea or abdominal pain. Patient does have vomiting and unable to swallow. Cardiovascular: Patient denies any chest pain or short of breath no palpitations. Respiratory: patient denied any cough is from production. No shortness of breath Neurologic: Patient denied any numbness or tingling headache. Musculoskeletal: Patient denies any complaints of joint swelling or deformity. Skin: Negative Psychiatric: Negative Endocrine: No heat or cold intolerance. No recent weight gain. Genitourinary: No dysuria or hematuria. All other 14 point ROS negative except the above Past Medical History Past Medical History: Chest Pain / Angina, COPD, GERD/Reflux, Hypertension Additional Past Medical History / Comment(s): cardiac cath with PTCA. History of Any Multi-Drug Resistant Organisms: None Reported Past Surgical History: Cholecystectomy, Heart Catheterization, Hernia Repair, Joint Replacement, Orthopedic Surgery Additional Past Surgical History / Comment(s): 08/04/14 Cardiac cath with PTCA. LEFT FEMUR ORIF, PARTIAL LT HIP REPLACEMENT, NIKO CAT SX Past Anesthesia/Blood Transfusion Reactions: No Reported Reaction Past Psychological History: No Psychological Hx Reported Smoking Status: Former smoker Past Alcohol Use History: Occasional Past Drug Use History: None Reported - Past Family History Father Family Medical History: No Reported History Mother Family Medical History: No Reported History Medications and Allergies Home Medications Medication Instructions Recorded Confirmed Type Albuterol Inhaler [Ventolin Hfa 2 puff INHALATION RT-Q6H PRN 01/29/15 07/14/18 History Inhaler] Aspirin EC [Ecotrin] 325 mg PO DAILY 08/03/14 01/16/18 History Docusate Sodium [Dulcolax Stool 200 mg PO DAILY 08/03/14 01/16/18 History Softener] Doxycycline [Vibramycin] 50 mg PO DAILY 08/03/14 01/16/18 History HYDROcodone/APAP 5-325MG [[place] 1 tab PO DAILY PRN 08/03/14 01/16/18 History 5-325] Multivitamin [Men's Multi-Vitamin] 1 tab PO DAILY 08/03/14 01/16/18 History Nitroglycerin Sl Tabs [Nitrostat] 0.4 mg SUBLINGUAL Q5M PRN #25 tab 08/05/14 Rx Fluticasone/Salmeterol [Advair 1 inhalation PO RT-BID 07/06/15 01/16/18 History 250-50 Diskus] Atorvastatin Calcium [Lipitor] 40 mg PO HS 12/11/16 01/16/18 History Enalapril Maleate [Vasotec] 5 mg PO DAILY 08/12/17 01/16/18 History Metoprolol Tartrate [Lopressor] 25 mg PO BID 08/12/17 01/16/18 History Salmeterol Xinafoate [Serevent 1 puff INHALATION RT-DAILY 08/12/17 01/16/18 History Diskus] Allergies Allergy/AdvReac Type Severity Reaction Status Date / Time adhesive Allergy Rash/Hives Verified 01/16/18 11:50 Physical Exam Vitals: Vital Signs Temp Pulse Resp BP Pulse Ox 01/16/18 11:54 97.8 F 60 16 112/61 97 01/16/18 10:37 97.9 F 58 L 18 114/69 97 Intake and Output 01/15/18 01/16/18 01/16/18 22:59 06:59 14:59 Other: Weight 70.035 kg PHYSICAL EXAMINATION: Patient is lying in the bed comfortably, no acute distress, awake alert and oriented.. HEENT: Normocephalic. Neck is supple. Pupils reactive. Nostrils clear. Oral cavity is moist. Ears reveal no drainage. Neck reveals no JVD, carotid bruits, or thyromegaly. CHEST EXAMINATION: Trachea is central. Symmetrical expansion. Fine crackles. Lung martínez clear to auscultation and percussion. CARDIAC: Normal S1, S2 with no gallops. No murmurs ABDOMEN: Soft. Bowel sounds normal. No organomegaly. No abdominal bruits. Extremities: reveal no edema. No clubbing or cyanosis Neurologically awake, alert, oriented x3 with well-coordinated movements. No focal deficits noted Skin: No rash or skin lesions. Psychiatric: Coperative. Nonsuicidal Musculoskeletal: No joint swelling or deformity. Normal range of motion. Results CBC & Chem 7: 01/16/18 11:25 01/16/18 11:25 Labs: Abnormal Lab Results - Last 24 Hours (Table) 01/16/18 Range/Units 11:25 Total Protein 6.2 L (6.3-8.2) g/dL Thrombosis Risk Factor Assmnt - DVT/VTE Prophylaxis DVT/VTE Prophylaxis: Pharmacologic Prophylaxis ordered Assessment and Plan Assessment: Difficulty swallowing/dysphagia. Possibly esophageal stricture Previous history of esophageal stricture and dilation COPD GERD Hypertension History of cardiac Catheterization stent placement. Previous history of smoking DVT prophylaxis Plan: Patient will be continued on IV hydration and continue with the nothing by mouth. GI was consulted for possible EGD and follow closely. Continue the home medications and further recommendations based on the clinical course. Time with Patient: Greater than 30
[2018-01-17] MEDS: SODIUM CHLORIDE 0.9% 1,000 ML IV SCH ×2 (05:51→12:57)
[2018-01-17 06:42] VITALS: BP 126/60; TEMP 98
[2018-01-17] MEDS ORDERED: FORMOTEROL FUMARATE 20 MCG/2 ML NEBU INHALATION SCH (08:00)
[2018-01-17] MEDS: PANTOPRAZOLE 40 MG/10 ML VIAL IV SCH (08:56)
[2018-01-17] MEDS: METOPROLOL TARTRATE 25 MG TAB PO SCH (08:57)
[2018-01-17] MEDS ORDERED: LISINOPRIL 10 MG TAB PO SCH (09:00)
[2018-01-17] MEDS ORDERED: DOXYCYCLINE 50 MG CAP PO SCH (09:00)
[2018-01-17] MEDS: SYMBICORT 80-4.5 MCG INHALER INHALATION SCH (09:19)
[2018-01-17 09:42] VITALS: PULSE 70
[2018-01-17] MEDS ORDERED: LIDOCAINE 1% INJ 10MG/ML (20 ML MDV) ONE (11:31)
[2018-01-17] MEDS ORDERED: PROPOFOL 10 MG/ML 20 ML VIAL IV ONE (11:31)
--- NOTE | 2018-01-18 05:59 | P.PCN ---
Date of Procedure: 01/17/18 Procedure(s) Performed: Procedure: Esophagogastroscopy and biopsy. Preoperative diagnosis: Dysphagia and history of esophageal stricture. Postoperative diagnosis: 1. Large hiatal hernia but no obvious esophagitis, esophageal stricture or food impaction. 2. No definite esophagitis. 3. Biopsies obtained from the esophagus before the endoscope was withdrawn. 4. Could not advance the endoscope into the duodenum because of the looping of the endoscope in the herniated stomach. Brief clinical history: The patient is an 87-year-old male with a known history of COPD, GERD, hypertension and previous history of esophageal stricture requiring dilatation came to ER with complaints of vomiting and inability to keep down food with difficulty swallowing. Patient was at breakfast the morning of admission and suddenly he was not able to swallow and continued to throw up whatever he eats. Patient had this symptom all day long. Patient, otherwise, denied any chest pain or shortness of breath. No headache or dizziness. No fever no chills no chills. Patient does have a history of similar symptoms previously associated with stricture and did need esophageal dilation. Patient states this was several years ago. No pain. No dyspnea. No hematemesis or melena. This evaluation is to assess for esophageal stricture that needs dilation, food impaction or other pathology. Procedure: With the patient on his left lateral decubitus position and after informed consent and adequate sedation, I passed the Olympus-GIF 160 video upper endoscope through the cricopharyngeus down the esophagus. GE junction was around 36 cm from the incisors and there was a large hiatal hernia with both sliding and paraesophageal components. The esophagus did not show definite esophagitis. There were no strictures or Bowman's esophagus. There was no impacted food bolus in the esophagus. The endoscope was then passed into the stomach. There was a large hiatal hernia with both sliding and paraesophageal components. The endoscope kept forming a large loop and I was not able to pass it through the pylorus into the duodenum. The stomach, otherwise, did not show any abnormalities and there was no evidence of mass or stricture in the retroflex view in the cardia. I obtained biopsies from the esophagus before the endoscope was withdrawn. The patient tolerated the procedure well. Plan: The patient was reassured. It is likely that his symptoms could be related to the hiatal hernia with transient obstruction. If his symptoms continue to recur, with resultant nutritional compromise, consideration should be given to assess his hernia and explore surgical options. Evaluation for motility disorders of the esophagus would be indicated before that. I will be happy to see in the office if his symptoms recur.
--- NOTE | 2018-01-18 06:05 | P.CONS ---
History of Present Illness - Reason for Consult Consult date: 01/17/18 Dysphagia. - History of Present Illness The patient is an 87-year-old male with a known history of COPD, GERD, hypertension and previous history of esophageal stricture requiring dilatation came to ER with complaints of vomiting and inability to keep down food with difficulty swallowing. Patient was at breakfast the morning of admission and suddenly he was not able to swallow and continued to throw up whatever he eats. Patient had this symptom all day long. Patient, otherwise, denied any chest pain or shortness of breath. No headache or dizziness. No fever no chills no chills. Patient does have a history of similar symptoms previously associated with stricture and did need esophageal dilation. Patient states this was several years ago. No pain. No dyspnea. No hematemesis or melena. Review of Systems Constitutional: Denies fever, chills or unintentional weight loss Neurologic: No headaches, double vision, slurring in the speech or other sensory or motor changes Cardiopulmonary: No chest pains, shortness of breath or palpitations Gastrointestinal: See present illness above Genitourinary: No hematuria, dysuria or frequency Musculoskeletal: No joint swelling or pain Skin: No rashes Endocrine: No diabetes or thyroid disease Hematologic: No bleeding tendency or anemia Psychiatry: No anxiety or depression Past Medical History Past Medical History: Chest Pain / Angina, COPD, GERD/Reflux, Hypertension Additional Past Medical History / Comment(s): cardiac cath with PTCA. History of Any Multi-Drug Resistant Organisms: None Reported Past Surgical History: Cholecystectomy, Heart Catheterization, Hernia Repair, Joint Replacement, Orthopedic Surgery Additional Past Surgical History / Comment(s): 08/04/14 Cardiac cath with PTCA. LEFT FEMUR ORIF, PARTIAL LT HIP REPLACEMENT, NIKO CAT SX Past Anesthesia/Blood Transfusion Reactions: No Reported Reaction Past Psychological History: No Psychological Hx Reported Smoking Status: Former smoker Past Alcohol Use History: Occasional Past Drug Use History: None Reported - Past Family History Father Family Medical History: No Reported History Mother Family Medical History: No Reported History Medications and Allergies Home Medications Medication Instructions Recorded Confirmed Type Albuterol Inhaler [Ventolin Hfa 2 puff INHALATION RT-Q6H PRN 08/03/14 01/16/18 History Inhaler] Aspirin EC [Ecotrin] 325 mg PO DAILY 08/03/14 01/16/18 History Docusate Sodium [Dulcolax Stool 200 mg PO DAILY 08/03/14 01/16/18 History Softener] Doxycycline [Vibramycin] 50 mg PO DAILY 08/03/14 01/16/18 History HYDROcodone/APAP 5-325MG [[place] 1 tab PO DAILY PRN 08/03/14 01/16/18 History 5-325] Multivitamin [Men's Multi-Vitamin] 1 tab PO DAILY 08/03/14 01/16/18 History Nitroglycerin Sl Tabs [Nitrostat] 0.4 mg SUBLINGUAL Q5M PRN #25 tab 08/05/14 Rx Fluticasone/Salmeterol [Advair 1 inhalation PO RT-BID 07/06/15 01/16/18 History 250-50 Diskus] Atorvastatin Calcium [Lipitor] 40 mg PO HS 12/11/16 01/16/18 History Enalapril Maleate [Vasotec] 5 mg PO DAILY 08/12/17 01/16/18 History Metoprolol Tartrate [Lopressor] 25 mg PO BID 08/12/17 01/16/18 History Salmeterol Xinafoate [Serevent 1 puff INHALATION RT-DAILY 08/12/17 01/16/18 History Diskus] Allergies Allergy/AdvReac Type Severity Reaction Status Date / Time adhesive Allergy Rash/Hives Verified 01/16/18 11:50 Physical Exam Vitals: Vital Signs Temp Pulse Pulse Resp BP BP Pulse Ox 01/17/18 09:40 70 01/17/18 09:30 68 01/17/18 09:29 68 01/17/18 09:20 68 01/17/18 05:45 98.0 F 66 16 126/60 100 01/16/18 23:00 96.8 F L 53 L 16 116/63 95 01/16/18 15:00 98.0 F 66 16 133/69 97 01/16/18 12:24 97.3 F L 51 L 16 111/67 96 01/16/18 12:15 66 16 Intake and Output 01/16/18 01/17/18 01/17/18 22:59 06:59 14:59 Intake Total 240 Output Total 1450 1450 350 Balance -1450 -1450 -110 Intake: Oral 240 Output: Urine 1450 1450 350 Other: Voiding Method Urinal # Voids 1 1 # Bowel Movements 0 0 Weight 70.035 kg General: Appeared stated age, very pleasant in no acute distress Head and neck: Normocephalic and atraumatic, conjunctivae pink and sclerae are not icteric, mucous membranes moist and pink. No masses in the neck or tracheal shifts Lungs: Clear to auscultation with no dullness to percussion Heart: Regular, no murmurs, gallops or friction rubs Abdomen: Soft, no masses or organomegalies. No tenderness. Bowel sounds present Extremities: No clubbing, cyanosis or edema Neurologic: Alert and oriented 3. Cranial nerves grossly intact, no gross sensory or motor abnormalities Results CBC & Chem 7: 01/16/18 11:25 01/16/18 11:25 Labs: Abnormal Lab Results - Last 24 Hours (Table) 01/16/18 Range/Units 11:25 Total Protein 6.2 L (6.3-8.2) g/dL Assessment and Plan Assessment: Dysphagia and history of esophageal strictures requiring dilations in the past. The possibility of food impaction to be considered based on the presentation of this patient. Plan: Agree with your current management. Will proceed with upper endoscopy today. Further plans based on the findings.
== END 2018-01-17 15:52 | disposition home or self-care (01) ==
LOC: EC 10:26 → 4MS4W 11:09
PROVIDERS: ADMIT Internal Medicine; ATTEND Internal Medicine
DX: K44.9 Diaphragmatic hernia without obstruction or gangrene (principal); K20.9 Esophagitis, unspecified; J44.9 Chronic obstructive pulmonary disease, unspecified; K21.9 Gastro-esophageal reflux disease without esophagitis; I10 Essential (primary) hypertension; Z90.49 Acquired absence of other specified parts of digestive tract; Z87.891 Personal history of nicotine dependence; Z95.5 Presence of coronary angioplasty implant and graft; Z79.82 Long term (current) use of aspirin; Z79.51 Long term (current) use of inhaled steroids; Z79.899 Other long term (current) drug therapy; Z91.048 Other nonmedicinal substance allergy status
CPT/HCPCS: 96374 ×2; 99284 ×2; 96376; 94640 ×3; 88305; 80053; 85025; 85610; 88312; 43239; G0378 ×2; J2001; J2704; C9113 ×2

== ENCOUNTER → 2018-02-05 | Outpatient (CLI) | payer MEDICARE ==
--- NOTE | 2018-02-05 14:42 | US ---
EXAMINATION TYPE: US thyroid st tissue head/neck DATE OF EXAM: 02/05/2018 COMPARISON: NONE CLINICAL HISTORY: E04.1 THYROID NODULE. History of thyroid nodules GLAND SIZE: Right Lobe: 3.6 x 1.2 x 1.9 cm Overall Parenchyma: homogenous Left Lobe: 2.9 x 1.5 x 1.7 cm Overall Parenchyma: homogeneous Isthmus Thickness: 0.4 cm NODULES RIGHT: # of nodules measured on right: 2 1. 0.9 X 0.9 x 0.9 cm hyperechoic solid nodule at the lower pole with well-defined margins; . This nodule is wider than tall and shows intranodular vascularity. Prior size: 0.9 x 0.7 x 0.9 cm 2. 1.5 X 0.9 x 0.9 cm hyperechoic solid nodule at the lateral pole with well-defined margins; . Thi s nodule is wider than tall and shows intranodular vascularity. Prior size: 1.4 x 1.1 x 0.7 cm LEFT: # of nodules measured on left: 0 ISTHMUS: # of nodules measured in the isthmus: 0 Bilateral neck scanned, no evidence of lymphadenopathy. IMPRESSION: 1. Right lobe thyroid nodule lateral thyroid measuring 1.5 x 0.9 x 0.9 cm. 2. Subcentimeter nodule within the right lobe thyroid
== END | disposition home or self-care (01) ==
LOC: RADUSWWP 13:25
PROVIDERS: ATTEND Surgery Plastic and Reconstructive Surgery
DX: E04.1 Nontoxic single thyroid nodule (principal)
CPT/HCPCS: 76536

== ENCOUNTER 2018-04-18 16:17 | Emergency (ER) | payer MEDICARE ==
[2018-04-18 17:02] VITALS: RESP 18
[2018-04-18] MEDS ORDERED: ACETAMINOPHEN TAB 325 MG TAB PO STA (17:36)
--- NOTE | 2018-04-18 17:42 | ED ---
Fall HPI - General Chief Complaint: Fall Stated Complaint: Fall Time Seen by Provider: 04/18/18 17:26 Source: patient, family, RN notes reviewed Mode of arrival: wheelchair Limitations: no limitations - History of Present Illness Initial Comments: This is an 87-year-old male who presents to the emergency department with chief complaint of fall injury. Patient is accompanied by his daughter who contributes to history. Patient reports he was carrying a laundry basket from one room to the other. He states that he lost his balance and fell forward. He states that he landed on the laundry basket, hitting his chest directly on the edge of it. Patient reports pain to the upper left ribs. Fall was mechanical; patient denies any chest pain or shortness of breath, dizziness, nausea or vomiting. Patient is not on any blood thinners and denies hitting his head. He denies neck or back pain. Patient's daughter states that he has fallen in the past and broke multiple ribs so was concerned. - Related Data Home Medications Medication Instructions Recorded Confirmed Albuterol Inhaler [Ventolin Hfa 2 puff INHALATION RT-Q6H PRN 08/03/14 04/18/18 Inhaler] Aspirin EC [Ecotrin] 325 mg PO DAILY 08/03/14 04/18/18 Docusate Sodium [Dulcolax Stool 200 mg PO DAILY 08/03/14 04/18/18 Softener] Doxycycline [Vibramycin] 50 mg PO DAILY 08/03/14 04/18/18 HYDROcodone/APAP 5-325MG [[place] 1 tab PO DAILY PRN 08/03/14 04/18/18 5-325] Multivitamin [Men's Multi-Vitamin] 1 tab PO DAILY 08/03/14 04/18/18 Fluticasone/Salmeterol [Advair 1 puff INHALATION RT-BID 07/06/15 04/18/18 250-50 Diskus] Atorvastatin Calcium [Lipitor] 40 mg PO DAILY 12/11/16 04/18/18 Enalapril Maleate [Vasotec] 5 mg PO DAILY 08/12/17 04/18/18 Metoprolol Tartrate [Lopressor] 25 mg PO BID 08/12/17 04/18/18 Salmeterol Xinafoate [Serevent 1 puff INHALATION RT-DAILY 08/12/17 04/18/18 Diskus] Betamethasone Dipropionate 1 applic TOPICAL DAILY 04/18/18 04/18/18 [Diprolene AF 0.05% Cream] Omeprazole 20 mg PO DAILY 04/18/18 04/18/18 Previous Rx's Medication Instructions Recorded Nitroglycerin Sl Tabs [Nitrostat] 0.4 mg SUBLINGUAL Q5M PRN #25 tab 08/05/14 Allergies Allergy/AdvReac Type Severity Reaction Status Date / Time adhesive Allergy Rash/Hives Verified 04/18/18 17:31 Review of Systems ROS Statement: Those systems with pertinent positive or pertinent negative responses have been documented in the HPI. ROS Other: All systems not noted in ROS Statement are negative. Past Medical History Past Medical History: Chest Pain / Angina, COPD, GERD/Reflux, Hypertension Additional Past Medical History / Comment(s): cardiac cath with PTCA. History of Any Multi-Drug Resistant Organisms: None Reported Past Surgical History: Cholecystectomy, Heart Catheterization, Hernia Repair, Joint Replacement, Orthopedic Surgery Additional Past Surgical History / Comment(s): 08/04/14 Cardiac cath with PTCA. LEFT FEMUR ORIF, PARTIAL LT HIP REPLACEMENT, NIKO CAT SX Past Anesthesia/Blood Transfusion Reactions: No Reported Reaction Past Psychological History: No Psychological Hx Reported Smoking Status: Former smoker Past Alcohol Use History: None Reported Past Drug Use History: None Reported - Past Family History Father Family Medical History: No Reported History Mother Family Medical History: No Reported History General Exam - General Exam Comments Initial Comments: General: Awake and alert, well-developed; in no apparent distress. Lying comfortably on ED stretcher with daughter at bedside. Patient is hard of hearing, but is able to answer all questions thoroughly. HEENT: Head atraumatic, normocephalic. Pupils are equal, round and reactive to light. Extraocular movements intact. Oropharynx moist without erythema or exudate. Neck: Supple. Normal ROM. No tenderness. Cardiovascular: Regular rate and rhythm. No murmurs, rubs or gallops. Chest symmetrical. Tenderness on palpation of left anterolateral third and fourth ribs. Respiratory: Lungs clear to auscultation bilaterally. No wheezes, rales or rhonchi. Normal respiratory effort with no use of accessory muscles. Abdomen: Soft, non-tender, non-distended. No rigidity, rebound or guarding. Musculoskeletal: Normal ROM, no tenderness bilateral upper and lower extremities. Skin: [place], warm and dry without rashes or lesions. Neurological: Alert and oriented x3. CN II-XII grossly intact. Speech is fluent and answers are appropriate. No focal neuro deficits. Psychiatric: Normal mood and affect. No overt signs of depression or anxiety noted. Limitations: no limitations Course Vital Signs 04/18/18 04/18/18 17:00 19:46 Temperature 97.6 F 97.8 F Pulse Rate 89 76 Respiratory 18 18 Rate Blood Pressure 105/63 144/95 O2 Sat by Pulse 96 97 Oximetry Medical Decision Making - Medical Decision Making This is an 87-year-old male who presents to the emergency department with chief complaint of fall injury. Patient reports losing his balance, falling and hitting his chest on the edge of a laundry basket. Reports pain to left ribs. There is tenderness on palpation of left anterolateral third and fourth ribs. Lungs are clear to auscultation bilaterally. X-ray of left ribs and chest reveals mild atelectasis at the left lung base without rib fractures. Patient likely suffering from contusion. Recommended rest, ice and Tylenol as needed for pain. Patient's vital signs are stable and he is in no acute distress. He will be discharged home at this time. He is in agreement with plan and voices understanding. All questions were answered. - Radiology Data Radiology results: report reviewed X-ray left ribs with PA chest impression: Mild subsegmental atelectasis at the left lung base is new compared to exam. No rib fracture seen. Disposition Clinical Impression: Contusion of rib on left side Disposition: HOME SELF-CARE Condition: Good Instructions: Rib Contusion (ED) Additional Instructions: Please follow up with primary care provider within 1-2 days. Return to emergency department if symptoms should worsen or any concerns arise. Is patient prescribed a controlled substance at d/c from ED?: No Referrals: Bowen Guevara MD [Primary Care Provider] - 1-2 days Time of Disposition: 19:15
--- NOTE | 2018-04-18 19:01 | XR ---
EXAMINATION TYPE: XR ribs LT w pa chest xray DATE OF EXAM: 04/18/2018 COMPARISON: August 12, 2017 HISTORY: Fall. Pain. TECHNIQUE: 5 views FINDINGS: There is no heart failure nor confluent pneumonic infiltrate. There is slight coarsening of the markings at the lung bases. Thoracic aorta is atheromatous. There is no pleural effusion or pneu mothorax. I see no rib fracture. IMPRESSION: Mild subsegmental atelectasis at the left lung base is new compared to old exam. No rib f racture seen.
[2018-04-18 19:47] VITALS: BP 144/95; PULSE 76; TEMP 97.8
== END 2018-04-18 19:47 | disposition home or self-care (01) ==
LOC: EC 16:17
DX: S20.212A Contusion of left front wall of thorax, initial encounter (principal); J98.11 Atelectasis; I10 Essential (primary) hypertension; J44.9 Chronic obstructive pulmonary disease, unspecified; K21.9 Gastro-esophageal reflux disease without esophagitis; Z87.891 Personal history of nicotine dependence; Z79.82 Long term (current) use of aspirin; Z91.048 Other nonmedicinal substance allergy status; Z79.51 Long term (current) use of inhaled steroids; Z96.642 Presence of left artificial hip joint; Z95.5 Presence of coronary angioplasty implant and graft; W01.198A Fall on same level from slipping, tripping and stumbling with subsequent striking against other object, initial encounter; Y93.89 Activity, other specified
CPT/HCPCS: 99283

== ENCOUNTER 2018-06-07 12:45 | Emergency (ER) | payer MEDICARE ==
[2018-06-07 12:52] VITALS: RESP 18
[2018-06-07] MEDS ORDERED: DIPH,PERTUS(ACELL)TETVAC-LF 0.5 ML VIAL IM ONE (13:16)
--- NOTE | 2018-06-07 14:03 | CT ---
EXAMINATION TYPE: CT brain nelda almeida con DATE OF EXAM: 06/07/2018 COMPARISON: 04/24/2017 HISTORY: Fall CT DLP: 878.8 (brain facial cervical) mGycm Automated exposure control for dose reduction was used. TECHNIQUE: CT scan of the head and cervical spine are performed without contrast. FINDINGS: There is abnormal attenuation within the left maxillary sinus and deformity of the anteri or margin maxillary sinus. Could not exclude a fracture. Soft tissue edema overlies the left orbit an d frontal bone. [id number] generalized degenerative change with a greater frontal lobe component. No midline sh ift or mass effect. Diffuse low-attenuation throughout the white matter is nonspecific. Multilevel degenerative disc disease with the most marked findings at C5-6 and C6-C7. Posterior spond ylosis noted. Multilevel facet arthropathy. Assessment spinal canal is nondiagnostic due to technique and artifact. Cannot exclude central stenosis at C5-6 or C6-C7. Multilevel neural foraminal encroach ment noted. Recommend follow-up MRI. IMPRESSION: 1. There is no acute fracture or dislocation evident in the cervical spine. Multilevel degenerative d isc disease and facet arthropathy. Recommend follow-up MRI. 2. No acute intracranial hemorrhage, mass effect, or midline shift is seen. Degenerative and nonspeci fic white matter changes. Differential diagnosis would include remote microvascular ischemic white ma tter change. 3. Soft tissue edema overlying the left frontal bone and orbit. Changes of sinusitis involving the le ft maxillary sinus are suggested.
--- NOTE | 2018-06-07 14:07 | CT ---
EXAMINATION TYPE: CT facial bones wo con DATE OF EXAM: 06/07/2018 COMPARISON: None HISTORY: Pain CT DLP: 878.8 (brain facial cervical) mGycm Automated exposure control for dose reduction was used. TECHNIQUE: CT scan of the sinuses is performed without contrast, axial images are obtained, coronal r eformatted images are also reviewed. FINDINGS: Nasal septal deviation is seen and there is an air-fluid level within the left maxillary si nus. Osseous structures are intact. Orbital [place] are intact. Nasal bone intact. Zygomatic arch is in tact. Nasopharynx and oropharynx are symmetric. Intraorbital structures are symmetric. Soft tissue hematoma overlying the left frontal bone IMPRESSION: 1. Changes of chronic sinusitis with no definite acute fracture.
--- NOTE | 2018-06-07 14:28 | ED ---
Head Injury HPI - General Chief complaint: Head Injury Stated complaint: fall/head injury-sent by [employer] Time Seen by Provider: 06/07/18 12:54 Source: patient, RN notes reviewed Mode of arrival: wheelchair Limitations: no limitations - History of Present Illness Initial comments: 87-year-old male presents emergency Department chief complaint of fall, head injury. Patient states that he was getting out of his vehicle caught his foot on the running board fell forward striking his head. Patient did not lose consciousness. Patient complains of mild facial pain and headache. Denies any neck pain or any other extremity injury. Patient states she does not take any blood thinners. Patient was seen at urgent care and sent here for further evaluation. Patient states he did have a small abrasion or laceration to his face. He believes his last tetanus was 10 years ago. Patient denies any chest pain, syncopal episodes, nausea vomiting. Denies blurred vision or dizziness - Related Data Home Medications Medication Instructions Recorded Confirmed Albuterol Inhaler [Ventolin Hfa 2 puff INHALATION RT-Q6H PRN 08/03/14 04/18/18 Inhaler] Aspirin EC [Ecotrin] 325 mg PO DAILY 08/03/14 04/18/18 Docusate Sodium [Dulcolax Stool 200 mg PO DAILY 08/03/14 04/18/18 Softener] Doxycycline [Vibramycin] 50 mg PO DAILY 08/03/14 04/18/18 HYDROcodone/APAP 5-325MG [[place] 1 tab PO DAILY PRN 08/03/14 04/18/18 5-325] Multivitamin [Men's Multi-Vitamin] 1 tab PO DAILY 08/03/14 04/18/18 Fluticasone/Salmeterol [Advair 1 puff INHALATION RT-BID 07/06/15 04/18/18 250-50 Diskus] Atorvastatin Calcium [Lipitor] 40 mg PO DAILY 12/11/16 04/18/18 Enalapril Maleate [Vasotec] 5 mg PO DAILY 08/12/17 04/18/18 Metoprolol Tartrate [Lopressor] 25 mg PO BID 08/12/17 04/18/18 Salmeterol Xinafoate [Serevent 1 puff INHALATION RT-DAILY 08/12/17 04/18/18 Diskus] Betamethasone Dipropionate 1 applic TOPICAL DAILY 10/14/18 10/14/18 [Diprolene AF 0.05% Cream] Omeprazole 20 mg PO DAILY 04/18/18 04/18/18 Previous Rx's Medication Instructions Recorded Nitroglycerin Sl Tabs [Nitrostat] 0.4 mg SUBLINGUAL Q5M PRN #25 tab 08/05/14 Allergies/Adverse reactions: Allergies Allergy/AdvReac Type Severity Reaction Status Date / Time adhesive Allergy Rash/Hives Verified 06/07/18 12:52 Review of Systems ROS Statement: Those systems with pertinent positive or pertinent negative responses have been documented in the HPI. ROS Other: All systems not noted in ROS Statement are negative. Past Medical History Past Medical History: Chest Pain / Angina, COPD, GERD/Reflux, Hypertension Additional Past Medical History / Comment(s): cardiac cath with PTCA. History of Any Multi-Drug Resistant Organisms: None Reported Past Surgical History: Cholecystectomy, Heart Catheterization, Hernia Repair, Joint Replacement, Orthopedic Surgery Additional Past Surgical History / Comment(s): 08/04/14 Cardiac cath with PTCA. LEFT FEMUR ORIF, PARTIAL LT HIP REPLACEMENT, NIKO CAT SX Past Anesthesia/Blood Transfusion Reactions: No Reported Reaction Past Psychological History: No Psychological Hx Reported Smoking Status: Former smoker Past Alcohol Use History: None Reported Past Drug Use History: None Reported - Past Family History Father Family Medical History: No Reported History Mother Family Medical History: No Reported History General Exam Limitations: no limitations General appearance: alert, in no apparent distress Head exam: Present: atraumatic, normocephalic. Absent: normal inspection (Mild frontal swelling noted) Eye exam: Present: normal appearance, PERRL, EOMI. Absent: scleral icterus, conjunctival injection, periorbital swelling ENT exam: Present: normal oropharynx, mucous membranes moist, TM's normal bilaterally, normal external ear exam. Absent: normal exam (Abrasion to the left cheek ) Neck exam: Present: normal inspection, full ROM. Absent: tenderness, meningismus, lymphadenopathy Respiratory exam: Present: normal lung sounds bilaterally. Absent: respiratory distress, wheezes, rales, rhonchi, stridor Cardiovascular Exam: Present: regular rate, normal rhythm, normal heart sounds. Absent: systolic murmur, diastolic murmur, rubs, gallop, clicks Back exam: Absent: CVA tenderness (R), CVA tenderness (L) Neurological exam: Present: alert, oriented X3, CN II-XII intact, reflexes normal. Absent: motor sensory deficit Skin exam: Present: warm, dry, intact, normal color. Absent: rash Course Vital Signs 06/07/18 12:49 Temperature 98.3 F Pulse Rate 67 Respiratory 18 Rate Blood Pressure 103/68 O2 Sat by Pulse 97 Oximetry Medical Decision Making - Medical Decision Making 87-year-old male present emergency from for fall facial injury. CT was obtained which showed no acute abnormality's is chronic cervical changes recommend MRI, chronic sinusitis. Patient will follow-up with PCP and return for any worsening symptoms. Tetanus was updated. Disposition Clinical Impression: Fall, Facial contusion, Head injury Disposition: HOME SELF-CARE Condition: Stable Instructions: Head Injury (ED) Additional Instructions: Please return to the Emergency Department if symptoms worsen or any other concerns. Is patient prescribed a controlled substance at d/c from ED?: No Referrals: Bowen Guevara MD [Primary Care Provider] - 1-2 days Time of Disposition: 14:28
[2018-06-07 14:44] VITALS: BP 133/82; PULSE 59; TEMP 97.9
== END 2018-06-07 14:36 | disposition home or self-care (01) ==
LOC: EC 12:45
DX: S00.83XA Contusion of other part of head, initial encounter (principal); Z23 Encounter for immunization; I10 Essential (primary) hypertension; J44.9 Chronic obstructive pulmonary disease, unspecified; K21.9 Gastro-esophageal reflux disease without esophagitis; Z79.51 Long term (current) use of inhaled steroids; Z79.899 Other long term (current) drug therapy; Z79.82 Long term (current) use of aspirin; Z91.048 Other nonmedicinal substance allergy status; Z87.891 Personal history of nicotine dependence; Z95.5 Presence of coronary angioplasty implant and graft; Z96.642 Presence of left artificial hip joint; W18.09XA Striking against other object with subsequent fall, initial encounter
CPT/HCPCS: 70450; 70486; 72125; 90471; 90715; 99283

== ENCOUNTER → 2018-07-20 | Outpatient (CLI) | payer MEDICARE ==
[2018-07-20 17:23] LABS: Albumin 3.9 g/dL (3.80-4.90); Albumin/Globulin Ratio 1.63 (1.20-2.10); Anion Gap 6.4 mmol/L (4.00-12.00); Calcium 8.8 mg/dL (8.7-10.3); Carbon Dioxide 28.6 mmol/L (21.6-31.8); Globulin 2.4 g/dL (1.6-3.3); Potassium 4.4 mmol/L (3.5-5.5); Total Bilirubin 0.5 mg/dL (0.2-1.2); Total Protein 6.3 g/dL (6.2-8.2)
== END ==
LOC: LABWHC1 07:29
PROVIDERS: ATTEND Internal Medicine Interventional Cardiology
DX: E78.2 Mixed hyperlipidemia (principal)
CPT/HCPCS: 36415; 80053; 80061

== ENCOUNTER → 2019-02-02 | Outpatient (CLI) | payer MEDICARE ==
[2019-02-02 11:57] LABS: ALT 34 U/L (10-49); AST 44 U/L (14-35); Chol/HDL Ratio 2.62; Cholesterol 97 mg/dL (0-200); Triglycerides <50.0 mg/dL (0.0-149.0); VLDL Calculation 9.98 mg/dL (5.00-40.00)
--- NOTE | 2019-02-02 13:48 | US ---
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 GLAND SIZE: Right Lobe: 3.5 x 1.5 x 1.8 cm Overall Parenchyma: heterogenous Left Lobe: 4.3 x 1.4 x 2.0 cm Overall Parenchyma: Heterogenous Isthmus Thickness: 0.4 cm NODULES RIGHT: # of nodules measured on right: 2 1. 0.9 X 0.7 x 0.9 cm hyperechoic solid nodule at the lower pole with well- defined margins. This nod ule is wider than tall and shows intranodular vascularity. Prior size: 0.9 x 0.9 x 0.9 cm 2. 0.8 X 0.8 x 0.8 cm hyperechoic solid nodule at the lateral pole with well- defined margins. This n odule is wider than tall and shows no intranodular vascularity. Prior size: 1.5 x 0.9 x 0.9 cm LEFT: # of nodules measured on left: 0 Bilateral neck scanned, no evidence of lymphadenopathy IMPRESSION: Similar size of the subcentimeter right thyroid nodule and decreased size of the previously seen [place] right thyroid nodule, now also subcentimeter. No enlarging nodule is seen or new thyroid nodule.
== END | disposition home or self-care (01) ==
LOC: LABWHC1 06:51
PROVIDERS: ATTEND Internal Medicine Endocrinology, Diabetes & Metabolism
DX: E04.2 Nontoxic multinodular goiter (principal); E78.2 Mixed hyperlipidemia
CPT/HCPCS: 36415; 76536; 80061; 84439; 84443; 84450; 84460

== ENCOUNTER 2019-03-28 07:42 | Observation (INO) | payer MEDICARE ==
[2019-03-28] MEDS ORDERED: ASPIRIN 81 MG PO STA (08:09)
[2019-03-28] MEDS ORDERED: NITROGLYCERIN OINT 1 INCH/GM PACKET TOPICAL STA (08:09)
--- NOTE | 2019-03-28 08:12 | ED ---
General Adult HPI - General Chief complaint: Chest Pain Stated complaint: chest pain Time Seen by Provider: 03/28/19 07:49 Source: patient, family, RN notes reviewed Mode of arrival: ambulatory Limitations: no limitations - History of Present Illness Initial comments: Patient is a pleasant 88-year-old male presenting to the emergency Department with complaints of chest discomfort. Onset of symptoms was this morning. Symptoms just lasted a few minutes. Patient had similar symptoms yesterday. Patient has a difficult time describing the type of discomfort. Patient is unclear symptoms are similar to his previous heart attack for 5 years ago. No associated dyspnea, nausea, or diaphoresis. Patient is currently symptom-free. - Related Data Home Medications Medication Instructions Recorded Confirmed Albuterol Inhaler [Ventolin Hfa 2 puff INHALATION RT-Q6H PRN 08/03/14 03/28/19 Inhaler] Docusate Sodium [Dulcolax Stool 200 mg PO DAILY 08/03/14 03/28/19 Softener] Doxycycline [Vibramycin] 50 mg PO DAILY 08/03/14 03/28/19 HYDROcodone/APAP 5-325MG [[place] 1 tab PO DAILY PRN 08/03/14 03/28/19 5-325] Multivitamin [Men's Multi-Vitamin] 1 tab PO DAILY 08/03/14 03/28/19 Fluticasone/Salmeterol [Advair 1 puff INHALATION RT-BID 07/06/15 03/28/19 250-50 Diskus] Atorvastatin Calcium [Lipitor] 40 mg PO DAILY 12/11/16 03/28/19 Enalapril Maleate [Vasotec] 5 mg PO DAILY 08/12/17 03/28/19 Metoprolol Tartrate [Lopressor] 25 mg PO BID 08/12/17 03/28/19 Salmeterol Xinafoate [Serevent 1 puff INHALATION RT-DAILY 08/12/17 03/28/19 Diskus] Betamethasone Dipropionate 1 applic TOPICAL DAILY 04/18/18 03/28/19 [Diprolene AF 0.05% Cream] Omeprazole 20 mg PO DAILY 04/18/18 03/28/19 Aspirin EC [Ecotrin Low Dose] 81 mg PO DAILY 03/28/19 03/28/19 Previous Rx's Medication Instructions Recorded Nitroglycerin Sl Tabs [Nitrostat] 0.4 mg SUBLINGUAL Q5M PRN #25 tab 08/05/14 Allergies Allergy/AdvReac Type Severity Reaction Status Date / Time adhesive Allergy Rash/Hives-SEE Verified 03/28/19 08:12 COMMENT Review of Systems ROS Statement: Those systems with pertinent positive or pertinent negative responses have been documented in the HPI. ROS Other: All systems not noted in ROS Statement are negative. Constitutional: Denies: fever Eyes: Denies: eye pain ENT: Denies: ear pain Respiratory: Denies: cough, dyspnea Cardiovascular: Reports: as per HPI, chest pain Endocrine: Denies: fatigue Gastrointestinal: Denies: abdominal pain Genitourinary: Denies: urgency Musculoskeletal: Denies: back pain Skin: Denies: rash Neurological: Denies: weakness Past Medical History Past Medical History: Chest Pain / Angina, COPD, GERD/Reflux, Hypertension Additional Past Medical History / Comment(s): cardiac cath with PTCA. History of Any Multi-Drug Resistant Organisms: None Reported Past Surgical History: Cholecystectomy, Heart Catheterization, Hernia Repair, Joint Replacement, Orthopedic Surgery Additional Past Surgical History / Comment(s): 08/04/14 Cardiac cath with PTCA. LEFT FEMUR ORIF, PARTIAL LT HIP REPLACEMENT, NIKO CAT SX Past Anesthesia/Blood Transfusion Reactions: No Reported Reaction Past Psychological History: No Psychological Hx Reported Smoking Status: Former smoker Past Alcohol Use History: Occasional Past Drug Use History: None Reported - Past Family History Father Family Medical History: No Reported History Mother Family Medical History: No Reported History General Exam Limitations: no limitations General appearance: alert, in no apparent distress Head exam: Present: atraumatic Eye exam: Present: normal appearance Neck exam: Present: normal inspection Respiratory exam: Present: normal lung sounds bilaterally. Absent: chest wall tenderness Cardiovascular Exam: Present: regular rate, normal rhythm Expanded Peripheral pulses: 2+: Radial (R), Radial (L), Dorsalis Pedis (R), Dorsalis Pedis (L) GI/Abdominal exam: Present: soft. Absent: tenderness Extremities exam: Present: normal inspection. Absent: pedal edema, calf tenderness Neurological exam: Present: alert Psychiatric exam: Present: normal affect, normal mood Skin exam: Present: normal color Course Vital Signs 03/28/19 07:44 Temperature 97.4 F L Pulse Rate 66 Respiratory 17 Rate Blood Pressure 126/81 O2 Sat by Pulse 98 Oximetry EKG Findings - EKG Comments: EKG Findings:: Normal sinus rhythm at 60. SD 174. QRS 142. QT 432. QTC 432. Normal axis. Right bundle branch block. No acute ST change. Medical Decision Making - Medical Decision Making Patient reevaluated and resting comfortably in bed, symptom-free. Patient and family updated on results and plan. Case was discussed with Dr. Guevara, who will admit his patient. - Lab Data Result diagrams: 03/28/19 07:55 03/28/19 07:55 Lab Results 03/28/19 03/28/19 03/28/19 Range/Units 07:55 07:55 07:55 WBC 7.2 (3.8-10.6) k/uL RBC 4.56 (4.30-5.90) m/uL Hgb 11.9 L (13.0-17.5) gm/dL Hct 36.5 L (39.0-53.0) % MCV 80.2 (80.0-100.0) fL MCH 26.2 (25.0-35.0) pg MCHC 32.6 (31.0-37.0) g/dL RDW 17.2 H (11.5-15.5) % Plt Count 207 (150-450) k/uL Neutrophils % 72 % Lymphocytes % 14 % Monocytes % 8 % Eosinophils % 4 % Basophils % 1 % Neutrophils # 5.1 (1.3-7.7) k/uL Lymphocytes # 1.0 (1.0-4.8) k/uL Monocytes # 0.6 (0-1.0) k/uL Eosinophils # 0.3 (0-0.7) k/uL Basophils # 0.0 (0-0.2) k/uL Hypochromasia Slight Anisocytosis Slight PT (9.0-12.0) sec INR (<1.2) APTT (22.0-30.0) sec Sodium 140 (137-145) mmol/L Potassium 4.6 (3.5-5.1) mmol/L Chloride 108 H (98-107) mmol/L Carbon Dioxide 25 (22-30) mmol/L Anion Gap 7 mmol/L BUN 17 (9-20) mg/dL Creatinine 0.96 (0.66-1.25) mg/dL Est GFR (CKD-EPI)AfAm 83 (>60 ml/min/1.73 sqM) Est GFR (CKD-EPI)NonAf 72 (>60 ml/min/1.73 sqM) Glucose 110 H (74-99) mg/dL Calcium 8.6 (8.4-10.2) mg/dL Magnesium 2.1 (1.6-2.3) mg/dL Total Bilirubin 0.6 (0.2-1.3) mg/dL AST 41 (17-59) U/L ALT 27 (21-72) U/L Alkaline Phosphatase 78 (38-126) U/L Troponin I <0.012 (0.000-0.034) ng/mL Total Protein 6.6 (6.3-8.2) g/dL Albumin 3.5 (3.5-5.0) g/dL 03/28/19 Range/Units 08:30 WBC (3.8-10.6) k/uL RBC (4.30-5.90) m/uL Hgb (13.0-17.5) gm/dL Hct (39.0-53.0) % MCV (80.0-100.0) fL MCH (25.0-35.0) pg MCHC (31.0-37.0) g/dL RDW (11.5-15.5) % Plt Count (150-450) k/uL Neutrophils % % Lymphocytes % % Monocytes % % Eosinophils % % Basophils % % Neutrophils # (1.3-7.7) k/uL Lymphocytes # (1.0-4.8) k/uL Monocytes # (0-1.0) k/uL Eosinophils # (0-0.7) k/uL Basophils # (0-0.2) k/uL Hypochromasia Anisocytosis PT 11.2 (9.0-12.0) sec INR 1.1 (<1.2) APTT 24.4 (22.0-30.0) sec Sodium (137-145) mmol/L Potassium (3.5-5.1) mmol/L Chloride (98-107) mmol/L Carbon Dioxide (22-30) mmol/L Anion Gap mmol/L BUN (9-20) mg/dL Creatinine (0.66-1.25) mg/dL Est GFR (CKD-EPI)AfAm (>60 ml/min/1.73 sqM) Est GFR (CKD-EPI)NonAf (>60 ml/min/1.73 sqM) Glucose (74-99) mg/dL Calcium (8.4-10.2) mg/dL Magnesium (1.6-2.3) mg/dL Total Bilirubin (0.2-1.3) mg/dL AST (17-59) U/L ALT (21-72) U/L Alkaline Phosphatase (38-126) U/L Troponin I (0.000-0.034) ng/mL Total Protein (6.3-8.2) g/dL Albumin (3.5-5.0) g/dL - Radiology Data Radiology results: image reviewed (Chest x-ray shows hiatal hernia. Otherwise no acute process) Disposition Clinical Impression: Chest pain Disposition: ADMITTED IP TO THIS HOSP Is patient prescribed a controlled substance at d/c from ED?: No Referrals: Bowen Guevara MD [Primary Care Provider] - 1-2 days Decision Time: 09:39
[2019-03-28 08:23] LABS: Anisocytosis Slight; Basophils % (A) 1 %; Eosinophils # (A) 0.3 k/uL (0-0.7); Eosinophils % (A) 4 %; HCT 36.5 % (39.0-53.0); HGB 11.9 gm/dL (13.0-17.5); Hypochromasia Slight; Lymphocytes % (A) 14 %; MCH 26.2 pg (25.0-35.0); MCHC 32.6 g/dL (31.0-37.0); MCV 80.2 fL (80.0-100.0); Mean Platelet Volume 7.2; Monocytes # (A) 0.6 k/uL (0-1.0); Monocytes % (A) 8 %; Neutrophils # (A) 5.1 k/uL (1.3-7.7); Neutrophils % (A) 72 %; Platelet Count 207 k/uL (150-450); RBC 4.56 m/uL (4.30-5.90); RDW 17.2 % (11.5-15.5); WBC 7.2 k/uL (3.8-10.6)
--- NOTE | 2019-03-28 08:36 | XR ---
EXAMINATION TYPE: XR chest 2V DATE OF EXAM: 03/28/2019 COMPARISON: 04/18/2018 INDICATION: Chest pain TECHNIQUE: Frontal and lateral views of the chest are obtained. FINDINGS: The heart size is mildly prominent. The pulmonary vasculature is normal. The lungs are clear. There is a large size hiatal hernia present. IMPRESSION: 1. No acute pulmonary process. 2. Large hiatal hernia
[2019-03-28 08:37] LABS: Albumin 3.5 g/dL (3.5-5.0); Calcium 8.6 mg/dL (8.4-10.2); Magnesium 2.1 mg/dL (1.6-2.3); Total Bilirubin 0.6 mg/dL (0.2-1.3); Total Protein 6.6 g/dL (6.3-8.2)
[2019-03-28 08:43] LABS: Potassium 4.6 mmol/L (3.5-5.1)
[2019-03-28 09:03] LABS: INR 1.1 (<1.2); Partial Thromboplastin Time 24.4 sec (22.0-30.0); Prothrombin Time 11.2 sec (9.0-12.0)
[2019-03-28] MEDS ORDERED: NITROGLYCERIN SL TABS 0.4 MG TAB SUBLINGUAL PRN (09:39)
--- NOTE | 2019-03-28 12:12 | P.HPIM ---
History of Present Illness 88-year-old male presented the emergency room with complaints of chest pain radiated to left arm no nausea and no diaphoresis. Patient does have history of coronary disease with angioplasty. Patient also has hiatal hernia Review of Systems Cardiovascular: Reports chest pain Respiratory: Reports cough, Reports dyspnea Gastrointestinal: Reports heartburn Past Medical History Past Medical History: Chest Pain / Angina, COPD, GERD/Reflux, Hypertension Additional Past Medical History / Comment(s): cardiac cath with PTCA. History of Any Multi-Drug Resistant Organisms: None Reported Past Surgical History: Cholecystectomy, Heart Catheterization, Hernia Repair, Joint Replacement, Orthopedic Surgery Additional Past Surgical History / Comment(s): 08/04/14 Cardiac cath with PTCA. LEFT FEMUR ORIF, PARTIAL LT HIP REPLACEMENT, NIKO CAT SX Past Anesthesia/Blood Transfusion Reactions: No Reported Reaction Past Psychological History: No Psychological Hx Reported Smoking Status: Former smoker Past Alcohol Use History: Occasional Past Drug Use History: None Reported - Past Family History Father Family Medical History: No Reported History Mother Family Medical History: No Reported History Medications and Allergies Home Medications Medication Instructions Recorded Confirmed Type Albuterol Inhaler [Ventolin Hfa 2 puff INHALATION RT-Q6H PRN 08/03/14 03/28/19 History Inhaler] Docusate Sodium [Dulcolax Stool 200 mg PO DAILY 08/03/14 03/28/19 History Softener] Doxycycline [Vibramycin] 50 mg PO DAILY 08/03/14 03/28/19 History HYDROcodone/APAP 5-325MG [[place] 1 tab PO DAILY PRN 08/03/14 03/28/19 History 5-325] Multivitamin [Men's Multi-Vitamin] 1 tab PO DAILY 08/03/14 03/28/19 History Nitroglycerin Sl Tabs [Nitrostat] 0.4 mg SUBLINGUAL Q5M PRN #25 tab 08/05/14 03/28/19 Rx Fluticasone/Salmeterol [Advair 1 puff INHALATION RT-BID 07/06/15 03/28/19 History 250-50 Diskus] Atorvastatin Calcium [Lipitor] 40 mg PO DAILY 12/11/16 03/28/19 History Enalapril Maleate [Vasotec] 5 mg PO DAILY 08/12/17 03/28/19 History Metoprolol Tartrate [Lopressor] 25 mg PO BID 08/12/17 03/28/19 History Salmeterol Xinafoate [Serevent 1 puff INHALATION RT-DAILY 08/12/17 03/28/19 History Diskus] Betamethasone Dipropionate 1 applic TOPICAL DAILY 04/18/18 03/28/19 History [Diprolene AF 0.05% Cream] Omeprazole 20 mg PO DAILY 04/18/18 03/28/19 History Aspirin EC [Ecotrin Low Dose] 81 mg PO DAILY 03/28/19 03/28/19 History Allergies Allergy/AdvReac Type Severity Reaction Status Date / Time adhesive Allergy Rash/Hives-SEE Verified 03/28/19 08:12 COMMENT Physical Exam Vitals: Vital Signs Temp Pulse Resp BP Pulse Ox 03/28/19 07:44 97.4 F L 66 17 126/81 98 Intake and Output 03/27/19 03/28/19 03/28/19 22:59 06:59 14:59 Other: Weight 68.991 kg - Constitutional General appearance: mild distress - EENT Eyes: PERRLA Ears: bilateral: normal - Neck Neck: normal ROM - Respiratory Respiratory: bilateral: diminished - Cardiovascular Rhythm: regular - Gastrointestinal General gastrointestinal: normal bowel sounds, soft - Integumentary Integumentary: normal - Neurologic Neurologic: CNII-XII intact - Psychiatric Psychiatric: A&O x's 3, appropriate affect, intact judgment & insight Results CBC & Chem 7: 03/28/19 07:55 03/28/19 07:55 Labs: Abnormal Lab Results - Last 24 Hours (Table) 03/28/19 03/28/19 Range/Units 07:55 07:55 Hgb 11.9 L (13.0-17.5) gm/dL Hct 36.5 L (39.0-53.0) % RDW 17.2 H (11.5-15.5) % Chloride 108 H (98-107) mmol/L Glucose 110 H (74-99) mg/dL Chest x-ray: report reviewed Assessment and Plan Plan: Assessment Chest pain troponin negative 1 History of coronary disease with angioplasty COPD acute on chronic GERD Hypertension Plan Cardiology evaluation
--- NOTE | 2019-03-28 13:06 | P.CRDCN ---
History of Present Illness History of present illness: This is a pleasant 88 showed male past medical history significant for coronary artery disease status post stent placement to the RCA in 2015, hiatal hernia, hypertension, dyslipidemia, COPD and ischemic cardiomyopathy. He follows in the office with Dr. Lanza. We have been asked to see him in consultation secondary to chest discomfort. He states the last 2 mornings he has woken up with a discomfort in the left precordial region. He is unable to verbalize how the pain feels only that it is quite painful. There is no radiation to the arm, back, neck or jaw. There is no associated shortness of breath, dizziness, nausea, vomiting or diaphoresis. The pain is not worse with deep inspiration or movement of his torso. He states he sits up out of bed with the discomfort gets up and moving distressed and by the time he is chest pain subsided. He is seen and examined resting comfortably in bed in no acute distress with his daughter at the bedside. He is currently chest pain-free. EKG reveals sinus mechanism right bundle branch block. Chest x-ray reveals a large hiatal hernia with no acute cardiopulmonary process noted. Laboratory data reviewed, cardiac enzymes negative 1, hemoglobin 11.9, platelets 207, sodium 140, potassium 4.6, creatinine 0.96 and magnesium 2.1. Current daily cardiac medications include aspirin 81 mg daily, atorvastatin 40 mg daily, enalapril 5 mg daily and Lopressor 25 mg twice a day. Most recent echocardiogram performed in the office in November 2017 reveals preserved LV systolic function with ejection fraction 50%, mild to moderate aortic stenosis, mild tricuspid regurgitation and mild mitral regurgitation. Catheterization from 2015 reveals left main distal plaque 20%, LAD no stenosis, circumflex no stenosis, RCA totally occluded in the mid portion. He underwent successful revascularization with 2 DIMITRI. At the time of my exam: CONSTITUTIONAL: Denies fever. Denies chills. EYES: Denies blurred vision. Denies vision changes. Denies eye pain. EARS, NOSE, MOUTH & THROAT: Denies headache. Denies sore throat. Denies ear pain. CARDIOVASCULAR: Denies chest pain. Denies shortness of breath. Denies orthopnea. Denies PND. Denies palpitations. RESPIRATORY: Denies cough. GASTROINTESTINAL: Denies abdominal pain. Denies diarrhea. Denies constipation. Denies nausea. Denies vomiting. MUSCULOSKELETAL: Denies myalgias. INTEGUMENTARY: Denies pruitis. Denies rash. NEUROLOGIC: Denies numbness. Denies tingling. Denies weakness. PSYCHIATRIC: Denies anxiety. Denies depression. ENDOCRINE: Denies fatigue. Denies weight change. Denies polydipsia. Denies polyurina. GENITOURINARY: Denies burning, hematuria or urgency with micturation. HEMATOLOGIC: Denies history of anemia. Denies bleeding. Blood pressure 126/81 heart rate 66 afebrile maintaining oxygen saturation on room air GENERAL: This is a 88-year-old male in no apparent distress at the time of my examination. HEENT: Head is atraumatic, normocephalic. Pupils are equal, round. Sclerae anicteric. Conjunctivae are clear. Mucous membranes of the mouth are moist. Neck is supple. There is no jugular venous distention. No carotid bruit is heard. LUNGS: Faint expiratory wheeze, scattered rhonchi, no rales. No chest wall tenderness is noted on palpation or with deep breathing. HEART: Regular rate and rhythm with systolic ejection murmur at the base, no rubs or gallops. S1 and S2 heard. ABDOMEN: Soft, nontender. Bowel sounds are heard. No organomegaly noted. EXTREMITIES: No evidence of peripheral edema and no calf tenderness noted. VASCULAR: Radial and dorsalis pedis pulses palpated, no evidence of clubbing. NEUROLOGIC: Patient is awake, alert and oriented x3. ASSESSMENT Chest pain, atypical for angina. Underlying coronary artery disease status post stent placement to the RCA in 2014 Hypertension Dyslipidemia COPD Former nicotine dependence, quit 2014 PLAN Pain is atypical and likely related to hiatal hernia however progression of underlying CAD to be considered. Continue to obtain serial cardiac enzymes to rule out an acute event. Obtain 2-D echocardiogram and Doppler study to assess cardiac structure and function. Resume atorvastatin, lopresssor and enalapril as previously ordered. Further recommendations to follow based upon clinical course. Thank you kindly for this consultation. Nurse Practitioner note has been reviewed, I agree with a documented findings and plan of care. Patient was seen and examined. Past Medical History Past Medical History: Chest Pain / Angina, COPD, GERD/Reflux, Hypertension Additional Past Medical History / Comment(s): cardiac cath with PTCA. History of Any Multi-Drug Resistant Organisms: None Reported Past Surgical History: Cholecystectomy, Heart Catheterization, Hernia Repair, Joint Replacement, Orthopedic Surgery Additional Past Surgical History / Comment(s): 08/04/14 Cardiac cath with PTCA. LEFT FEMUR ORIF, PARTIAL LT HIP REPLACEMENT, NIKO CAT SX Past Anesthesia/Blood Transfusion Reactions: No Reported Reaction Past Psychological History: No Psychological Hx Reported Smoking Status: Former smoker Past Alcohol Use History: Occasional Past Drug Use History: None Reported - Past Family History Father Family Medical History: No Reported History Mother Family Medical History: No Reported History Medications and Allergies Home Medications Medication Instructions Recorded Confirmed Type Albuterol Inhaler [Ventolin Hfa 2 puff INHALATION RT-Q6H PRN 08/03/14 03/28/19 History Inhaler] Docusate Sodium [Dulcolax Stool 200 mg PO DAILY 08/03/14 03/28/19 History Softener] Doxycycline [Vibramycin] 50 mg PO DAILY 08/03/14 03/28/19 History HYDROcodone/APAP 5-325MG [[place] 1 tab PO DAILY PRN 08/03/14 03/28/19 History 5-325] Multivitamin [Men's Multi-Vitamin] 1 tab PO DAILY 08/03/14 03/28/19 History Nitroglycerin Sl Tabs [Nitrostat] 0.4 mg SUBLINGUAL Q5M PRN #25 tab 08/05/14 03/28/19 Rx Fluticasone/Salmeterol [Advair 1 puff INHALATION RT-BID 07/06/15 03/28/19 History 250-50 Diskus] Atorvastatin Calcium [Lipitor] 40 mg PO DAILY 12/11/16 03/28/19 History Enalapril Maleate [Vasotec] 5 mg PO DAILY 08/12/17 03/28/19 History Metoprolol Tartrate [Lopressor] 25 mg PO BID 08/12/17 03/28/19 History Salmeterol Xinafoate [Serevent 1 puff INHALATION RT-DAILY 08/12/17 03/28/19 History Diskus] Betamethasone Dipropionate 1 applic TOPICAL DAILY 04/18/18 03/28/19 History [Diprolene AF 0.05% Cream] Omeprazole 20 mg PO DAILY 04/18/18 03/28/19 History Aspirin EC [Ecotrin Low Dose] 81 mg PO DAILY 03/28/19 03/28/19 History Allergies Allergy/AdvReac Type Severity Reaction Status Date / Time adhesive Allergy Rash/Hives-SEE Verified 03/28/19 08:12 COMMENT Physical Exam Vitals: Vital Signs Temp Pulse Resp BP Pulse Ox 03/28/19 07:44 97.4 F L 66 17 126/81 98 Intake and Output 03/27/19 03/28/19 03/28/19 22:59 06:59 14:59 Other: Weight 68.991 kg Results 03/28/19 07:55 03/28/19 07:55 Cardiac Enzymes 03/28/19 03/28/19 Range/Units 07:55 07:55 AST 41 (17-59) U/L Troponin I <0.012 (0.000-0.034) ng/mL Coagulation 03/28/19 Range/Units 08:30 PT 11.2 (9.0-12.0) sec APTT 24.4 (22.0-30.0) sec CBC 03/28/19 Range/Units 07:55 WBC 7.2 (3.8-10.6) k/uL RBC 4.56 (4.30-5.90) m/uL Hgb 11.9 L (13.0-17.5) gm/dL Hct 36.5 L (39.0-53.0) % Plt Count 207 (150-450) k/uL Comprehensive Metabolic Panel 03/28/19 Range/Units 07:55 Sodium 140 (137-145) mmol/L Potassium 4.6 (3.5-5.1) mmol/L Chloride 108 H (98-107) mmol/L Carbon Dioxide 25 (22-30) mmol/L BUN 17 (9-20) mg/dL Creatinine 0.96 (0.66-1.25) mg/dL Glucose 110 H (74-99) mg/dL Calcium 8.6 (8.4-10.2) mg/dL AST 41 (17-59) U/L ALT 27 (21-72) U/L Alkaline Phosphatase 78 (38-126) U/L Total Protein 6.6 (6.3-8.2) g/dL Albumin 3.5 (3.5-5.0) g/dL Current Medications Generic Name Dose Route Start Last Admin Trade Name Freq PRN Reason Stop Dose Admin Aspirin 81 mg 03/29/19 09:00 Aspirin PO DAILY [facility] Atorvastatin Calcium 40 mg 03/29/19 09:00 Lipitor PO DAILY [facility] Betamethasone Dipropionate 1 applic 03/29/19 09:00 Diprolene Af TOPICAL DAILY [facility] Budesonide/Formoterol Fumarate 2 puff 03/28/19 20:00 Symbicort 80-4.5 Mcg Inhaler INHALATION RT-BID [facility] Docusate Sodium 200 mg 03/29/19 09:00 Colace PO DAILY [facility] Lisinopril 10 mg 03/29/19 09:00 Zestril PO DAILY [facility] Metoprolol Tartrate 25 mg 03/28/19 21:00 Lopressor PO BID [facility] Multivitamins 1 each 03/29/19 09:00 Theragran PO DAILY [facility] Nitroglycerin 0.4 mg 03/28/19 09:39 Nitrostat SUBLINGUAL Q5M PRN Chest Pain Pantoprazole Sodium 40 mg 03/29/19 07:30 Protonix PO AC-BRKFST [facility] Sodium Chloride 10 ml 03/28/19 21:00 Saline Flush IV BID [facility] Intake and Output 03/27/19 03/28/19 03/28/19 22:59 06:59 14:59 Other: Weight 68.991 kg Patient Weight 03/29/19 06:59 Weight 68.991 kg 03/28/19 07:55 03/28/19 07:55
[2019-03-28] MEDS ORDERED: REGADENOSON 0.4 MG/5 ML SYRINGE IV ONE (15:42)
--- NOTE | 2019-03-28 16:00 | ECHOF ---
Referral Reason:cp MEASUREMENTS -------- HEIGHT: 167.6 cm WEIGHT: 68.9 kg BP: 131/84 RVIDd: 2.7 cm (< 3.3) IVSd: 1.1 cm (0.6 - 1.1) LVIDd: 3.8 cm (3.9 - 5.3) LVPWd: 1.5 cm (0.6 - 1.1) IVSs: 1.8 cm LVIDs: 1.8 cm LVPWs: 1.8 cm LAESV Index (A-L): 39.66 ml/m Ao Diam: 2.6 cm (2.0 - 3.7) AV Cusp: 1.1 cm (1.5 - 2.6) LA Diam: 3.4 cm (2.7 - 3.8) MV EXCURSION: 17.354 mm (> 18.000) MV EF SLOPE: 70 mm/s (70 - 150) EPSS: 0.6 cm MV E Rg: 0.73 m/s MV DecT: 319 ms MV A Rg: 1.07 m/s MV E/A Ratio: 0.68 AV maxP.43 mmHg AV meanP.42 mmHg AR PHT: 463 ms RAP: 5.00 mmHg RVSP: 22.12 mmHg TAPSE: 27.33 mm FINDINGS -------- Sinus rhythm. This was a technically adequate study. The left ventricular size is normal. There is mild concentric left ventricular hypertrophy. Overa ll left ventricular systolic function is mildly impaired with, an EF between 45 - 50 %. Pseudonorma l LV filling pattern, consistent with elevated LA pressure. Increased LAP. Grade 1 Diastolic Dysfun ction. Basal inferior LV wall motion is hypokinetic. Mid inferior LV wall motion is hypokinetic. Apical inferior LV wall motion is hypokinetic. The right ventricle is normal in size. The right ventricular systolic function is normal. LA is moderately dilated 34-39 ml/m2 The right atrial size is normal. Interatrial and interventricular septum intact. There is mild aortic valve sclerosis. There is mild aortic regurgitation. There is mild aortic st enosis present. Peak/mean gradient across the Aortic Valve is 18.43mmHg / 10.42mmHg. The mitral valve is normal. Mild mitral regurgitation is present. The tricuspid valve appears structurally normal. Mild tricuspid regurgitation present. Right vent ricular systolic pressure is normal at < 35 mmHg. Trace/mild (physiologic) pulmonic regurgitation. The aortic root size is normal. Normal inferior vena cava with normal inspiratory collapse consistent with estimated right atrial pre ssure of 5 mmHg. There is no pericardial effusion. CONCLUSIONS -------- 1. Sinus rhythm. 2. This was a technically adequate study. 3. The left ventricular size is normal. 4. There is mild concentric left ventricular hypertrophy. 5. Overall left ventricular systolic function is mildly impaired with, an EF between 45 - 50 %. 6. Increased LAP. Grade 1 Diastolic Dysfunction. 7. Basal inferior LV wall motion is hypokinetic. 8. Mid inferior LV wall motion is hypokinetic. 9. Apical inferior LV wall motion is hypokinetic. 10. LA is moderately dilated 34-39 ml/m2 11. The right atrial size is normal. 12. There is mild aortic valve sclerosis. 13. There is mild aortic regurgitation. 14. There is mild aortic stenosis present. 15. Peak/mean gradient across the Aortic Valve is 18.43mmHg / 10.42mmHg. 16. The mitral valve is normal. 17. Mild mitral regurgitation is present. 18. The tricuspid valve appears structurally normal. 19. Mild tricuspid regurgitation present. 20. Right ventricular systolic pressure is normal at < 35 mmHg. 21. Trace/mild (physiologic) pulmonic regurgitation. 22. The aortic root size is normal. 23. Normal inferior vena cava with normal inspiratory collapse consistent with estimated right atrial pressure of 5 mmHg. 24. There is no pericardial effusion. SHANK SKINNER: Ceci Cruz RDCS
[2019-03-28 16:22] VITALS: RESP 18
[2019-03-28 17:14] VITALS: BMI 24.5
[2019-03-28] MEDS: METOPROLOL TARTRATE 25 MG TAB PO SCH (19:37)
[2019-03-28] MEDS: SYMBICORT 80-4.5 MCG INHALER INHALATION SCH (20:13)
[2019-03-29 01:55] LABS: Cholesterol 105 mg/dL (<200); HDL Cholesterol 29 mg/dL (40-60); LDL Cholesterol,Calculated 62 mg/dL (0-99); Triglycerides 72 mg/dL (<150)
[2019-03-29] MEDS ORDERED: AMINOPHYLLINE 500 MG/20 ML VIAL IV PRN (06:00)
[2019-03-29] MEDS ORDERED: CAFFEINE CITRATE 60 MG/3 ML VIAL IV PRN (06:00)
[2019-03-29] MEDS ORDERED: PANTOPRAZOLE 40 MG TABLET PO SCH (07:30)
[2019-03-29] MEDS ORDERED: FORMOTEROL FUMARATE 20 MCG/2 ML NEBU INHALATION SCH (08:00)
[2019-03-29] MEDS: SYMBICORT 80-4.5 MCG INHALER INHALATION SCH (08:05)
[2019-03-29] MEDS ORDERED: SODIUM CHLORIDE 0.9% IV ONE (08:15)
[2019-03-29] MEDS ORDERED: DIPYRIDAMOLE IV ONE (08:15)
--- NOTE | 2019-03-29 08:42 | P.PN ---
Subjective This is a pleasant 88 showed male past medical history significant for coronary artery disease status post stent placement to the RCA in 2014, hiatal hernia, hypertension, dyslipidemia, COPD and ischemic cardiomyopathy. He follows in the office with Dr. Lanza. He is seen and examined sitting up in bed watching television. He states again waking up this morning he felt a similar chest discomfort. The pain subsided after a couple of minutes. There was no radiation or associated symptoms. Blood pressure 128/73 heart rate 59 afebrile maintaining oxygen saturation on room air. Laboratory data reviewed, cardiac enzymes negative 3, LDL 62. Currently maintained on aspirin 81 mg daily, atorvastatin 40 mg daily, lisinopril 10 mg daily, Lopressor 25 mg twice a day. Echocardiogram obtained reveals mildly impaired LV systolic function with ejection fraction 45-50%, grade 1 diastolic dysfunction, basal inferior, mid inferior and apical inferior wall motion hypokinesia, moderately dilated left atrium, mild aortic regurgitation, mean gradient across the aortic valve is 10 mmHg, mild mitral regurgitation and mild tricuspid regurgitation. GENERAL: This is a 88-year-old male in no apparent distress at the time of my examination. HEENT: Head is atraumatic, normocephalic. Pupils are equal, round. Sclerae anicteric. Conjunctivae are clear. Mucous membranes of the mouth are moist. Neck is supple. There is no jugular venous distention. No carotid bruit is heard. LUNGS: Clear to auscultation, no wheezes, rhonchi or rales. No chest wall tenderness is noted on palpation or with deep breathing. HEART: Regular rate and rhythm with systolic ejection murmur at the base, no rubs or gallops. S1 and S2 heard. EXTREMITIES: No evidence of peripheral edema and no calf tenderness noted. ASSESSMENT Chest pain, atypical for angina. Underlying coronary artery disease status post stent placement to the RCA in 2014 Hypertension Dyslipidemia COPD History of ischemic cardiomyopathy, on appropriate medical therapy. Former nicotine dependence, quit 2014 PLAN Proceed with Persantine stress test as previously discussed. Further recommendations to follow based upon clinical course and test findings. If this stress test is abnormal we will consider coronary angiography. Nurse Practitioner note has been reviewed, I agree with a documented findings and plan of care. Patient was seen and examined. Objective - Vital Signs Vital signs: Vital Signs Temp 98.3 F 03/29/19 07:15 Pulse 59 L 03/29/19 07:15 Resp 18 03/29/19 07:15 BP 128/73 03/29/19 07:15 Pulse Ox 95 03/29/19 07:15 Intake & Output 03/28/19 03/29/19 03/29/19 18:59 06:59 18:59 Weight 68.991 kg Other: # Voids 1 - Labs CBC & Chem 7: 03/28/19 07:55 03/28/19 07:55 Labs: Abnormal Lab Results - Last 24 Hours (Table) 03/28/19 03/28/19 Range/Units 07:55 07:55 Chloride 108 H (98-107) mmol/L Glucose 110 H (74-99) mg/dL HDL Cholesterol 29 L (40-60) mg/dL
[2019-03-29] MEDS ORDERED: ASPIRIN 325 MG TAB PO SCH (09:00)
[2019-03-29] MEDS ORDERED: BETAMETHASONE DIPROPIONATE 0.05% CREAM 15 GM TUBE TOPICAL SCH (09:00)
[2019-03-29] MEDS ORDERED: DOCUSATE 100 MG CAP PO SCH (09:00)
[2019-03-29] MEDS ORDERED: ASPIRIN 81 MG PO SCH (09:00)
[2019-03-29] MEDS ORDERED: ATORVASTATIN 40 MG TAB PO SCH (09:00)
[2019-03-29] MEDS ORDERED: MULTIVITAMINS, THERA 1 EACH TAB PO SCH (09:00)
[2019-03-29] MEDS ORDERED: LISINOPRIL 10 MG TAB PO SCH (09:00)
--- NOTE | 2019-03-29 10:51 | NM ---
EXAMINATION TYPE: NM stress lexiscan cardiolite DATE OF EXAM: 03/29/2019 COMPARISON: NONE HISTORY: Chest pain TECHNIQUE: After the intravenous administration of 9.7 mCi Tc 99m Sestamibi - Cardiolite resting SPE CT images acquired 45 minutes post injection. The patient received 0.4mg Lexiscan, 25.3 mCi Tc 99m Sestamibi - Stress images obtained [address] injection FINDINGS: Review of stress and rest SPECT images demonstrates focal fixed defect involving the inferior wall th e myocardium.. Gated analysis shows normal wall motion with an estimated left ventricular ejection f raction of 62 %. IMPRESSION: 1. Fixed defect inferior wall myocardium with no diagnostic evidence of stress-induced reversibility. Correlate for history of previous myocardial infarction. 2. Ejection fraction of 62%..
--- NOTE | 2019-03-29 11:03 | EST ---
EXERCISE STRESS DATE OF SERVICE: 03/29/2019 AGE: 88 SEX: Male HT: 5'6" WT: 152 PROTOCOL: Persantine Cardiolite STAGE: DURATION OF EXERCISE: HEART RATE REST: 57 BLOOD PRESSURE REST: 127/80 MAXIMUM HEART RATE ACHIEVED: 92 MAXIMUM BLOOD PRESSURE: 144/90 85% MPHR: 114 100% MPHR: 134 METS: INDICATIONS: Chest pain. CLINICAL INFORMATION: Baseline rhythm is sinus mechanism, rate 57, right bundle branch block. Baseline blood pressure 127/80 mmHg. Patient received an infusion of dipyridamole. Electrocardiograph monitoring revealed no evidence of diagnostic ischemic ST deviation. Occasional PVCs were noted. Cardiolite was injected per protocol. CONCLUSION: 1. Nondiagnostic electrocardiograph stress testing. 2. Nuclear images will be reported separately. MMODL / IJN: [id number] /
[2019-03-29 11:08] VITALS: BP 113/68; PULSE 68; TEMP 97.6
[2019-03-29] MEDS: METOPROLOL TARTRATE 25 MG TAB PO SCH (11:25)
--- NOTE | 2019-03-29 11:27 | P.DS ---
Providers Date of admission: 03/28/19 09:39 Expected date of discharge: 03/29/19 Attending physician: Bowen Guevara Consults: 03/28/19 09:39 Consult Physician Urgent Consulting Provider: Johnson Lanza Consult Reason/Comments: Cardiac evaluation Do you want consulting provider notified?: Yes Primary care physician: Bowen Guevara [facility] Course: 88-year-old male presented the emergency room with complaints of chest pain patient does have history of large hiatal hernia and history of coronary disease. Patient was evaluated by cardiology and found negative stress test for acute ischemia there is indication of old cardiac injury patient cleared for discharge Assessment Chest pain troponin negative 3 cleared for ischemic event Congestive heart failure acute on chronic systolic and diastolic dysfunction with ejection fraction of 45-50% History of coronary disease with angioplasty and SC COPD GERD Hypertension Plan Cleared for discharge patient to follow-up with family physician Dr. Bowen Guevara and cardiology Plan - Discharge Summary Discharge Rx Participant: No New Discharge Prescriptions: No Action Multivitamin [Men's Multi-Vitamin] 1 tab PO DAILY HYDROcodone/APAP 5-325MG [[place] 5-325] 1 tab PO DAILY PRN PRN Reason: Pain Doxycycline [Vibramycin] 50 mg PO DAILY Docusate Sodium [Dulcolax Stool Softener] 200 mg PO DAILY Albuterol Inhaler [Ventolin Hfa Inhaler] 2 puff INHALATION RT-Q6H PRN PRN Reason: copd Nitroglycerin Sl Tabs [Nitrostat] 0.4 mg SUBLINGUAL Q5M PRN #25 tab PRN Reason: Chest Pain Fluticasone/Salmeterol [Advair 250-50 Diskus] 1 puff INHALATION RT-BID Atorvastatin Calcium [Lipitor] 40 mg PO DAILY Enalapril Maleate [Vasotec] 5 mg PO DAILY Metoprolol Tartrate [Lopressor] 25 mg PO BID Salmeterol Xinafoate [Serevent Diskus] 1 puff INHALATION RT-DAILY Betamethasone Dipropionate [Diprolene AF 0.05% Cream] 1 applic TOPICAL DAILY Omeprazole 20 mg PO DAILY Aspirin EC [Ecotrin Low Dose] 81 mg PO DAILY Discharge Medication List Albuterol Inhaler [Ventolin Hfa Inhaler] 2 puff INHALATION RT-Q6H PRN 08/03/14 [History] Docusate Sodium [Dulcolax Stool Softener] 200 mg PO DAILY 08/03/14 [History] Doxycycline [Vibramycin] 50 mg PO DAILY 08/03/14 [History] HYDROcodone/APAP 5-325MG [[place] 5-325] 1 tab PO DAILY PRN 08/03/14 [History] Multivitamin [Men's Multi-Vitamin] 1 tab PO DAILY 08/03/14 [History] Nitroglycerin Sl Tabs [Nitrostat] 0.4 mg SUBLINGUAL Q5M PRN #25 tab 08/05/14 [Rx] Fluticasone/Salmeterol [Advair 250-50 Diskus] 1 puff INHALATION RT-BID 07/06/15 [History] Atorvastatin Calcium [Lipitor] 40 mg PO DAILY 12/11/16 [History] Enalapril Maleate [Vasotec] 5 mg PO DAILY 08/12/17 [History] Metoprolol Tartrate [Lopressor] 25 mg PO BID 08/12/17 [History] Salmeterol Xinafoate [Serevent Diskus] 1 puff INHALATION RT-DAILY 08/12/17 [History] Betamethasone Dipropionate [Diprolene AF 0.05% Cream] 1 applic TOPICAL DAILY 04/18/18 [History] Omeprazole 20 mg PO DAILY 04/18/18 [History] Aspirin EC [Ecotrin Low Dose] 81 mg PO DAILY 03/28/19 [History] Follow up Appointment(s)/Referral(s): Bowen Guevara MD [Primary Care Provider] - 1-2 days
== END 2019-03-29 12:17 | disposition home or self-care (01) ==
LOC: EC 07:42 → 1SOBS 09:39
PROVIDERS: ADMIT Family Medicine; ATTEND Family Medicine
DX: R07.89 Other chest pain (principal); R07.2 Precordial pain; I11.0 Hypertensive heart disease with heart failure; I50.43 Acute on chronic combined systolic (congestive) and diastolic (congestive) heart failure; I08.3 Combined rheumatic disorders of mitral, aortic and tricuspid valves; I25.2 Old myocardial infarction; J44.9 Chronic obstructive pulmonary disease, unspecified; K21.9 Gastro-esophageal reflux disease without esophagitis; E78.5 Hyperlipidemia, unspecified; I25.5 Ischemic cardiomyopathy; K44.9 Diaphragmatic hernia without obstruction or gangrene; I25.10 Atherosclerotic heart disease of native coronary artery without angina pectoris; Z90.49 Acquired absence of other specified parts of digestive tract; Z87.891 Personal history of nicotine dependence; Z95.5 Presence of coronary angioplasty implant and graft; Z79.51 Long term (current) use of inhaled steroids; Z79.891 Long term (current) use of opiate analgesic; Z79.82 Long term (current) use of aspirin; Z79.2 Long term (current) use of antibiotics; Z79.899 Other long term (current) drug therapy; Z91.048 Other nonmedicinal substance allergy status
CPT/HCPCS: 99285; 36415; 94640 ×3; 93005; 93017; 93306; 80061; 80053; 83735; 84484; 85025; 85610; 85730; 71046; 78452; G0378 ×2; A9500; J1245

== ENCOUNTER → 2019-08-01 | Outpatient (CLI) | payer MEDICARE | LOC: LABWHC1 08:00 | PROVIDERS: ATTEND Internal Medicine Endocrinology, Diabetes & Metabolism | DX: E04.2 Nontoxic multinodular goiter (principal) | CPT/HCPCS: 36415; 84439; 84443 ==

== ENCOUNTER → 2019-09-14 | Outpatient (CLI) | payer MEDICARE ==
[2019-09-14 20:26] LABS: Glucose 60 mg/dL (70-110)
== END | disposition home or self-care (01) ==
LOC: LABWHC1 13:23
PROVIDERS: ATTEND Psychiatry & Neurology Neurology
DX: R73.9 Hyperglycemia, unspecified (principal); R41.3 Other amnesia
CPT/HCPCS: 36415; 82607; 82747; 82947; 84439; 84443; 85652; 86618; 86780

== ENCOUNTER → 2019-10-24 | Outpatient (CLI) | payer MEDICARE ==
[2019-10-24 15:28] LABS: ALT 23 U/L (10-49); AST 37 U/L (14-35); African American GFR (CKD) 78.1 (60.0-200.0); Albumin/Globulin Ratio 1.54 (1.60-3.17); Alkaline Phosphatase 114 U/L (41-126); Calcium 8.7 mg/dL (8.7-10.3); Carbon Dioxide 27.5 mmol/L (21.6-31.8); Chloride 109 mmol/L (96-109); Chol/HDL Ratio 2.86; Cholesterol 106 mg/dL (0-200); Globulin 2.6 g/dL (1.6-3.3); Glucose 108 mg/dL (70-110); Non-African American GFR(CKD) 67.4 (60.0-200.0); Potassium 4.3 mmol/L (3.5-5.5); Sodium 142 mmol/L (135-145); Total Bilirubin 0.5 mg/dL (0.3-1.2); Total Protein 6.6 g/dL (6.2-8.2); Triglycerides <50.0 mg/dL (0.0-149.0)
== END | disposition home or self-care (01) ==
LOC: LABWHC1 08:05
PROVIDERS: ATTEND Internal Medicine Interventional Cardiology
DX: E78.2 Mixed hyperlipidemia (principal)
CPT/HCPCS: 36415; 80053; 80061

== ENCOUNTER 2019-12-05 21:04 | Emergency (ER) | payer MEDICARE ==
[2019-12-05 21:20] VITALS: RESP 18; TEMP 97.6
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
--- NOTE | 2019-12-05 22:00 | XR ---
EXAMINATION TYPE: PA chest and left rib series DATE OF EXAM: 12/05/2019 Comparison: 03/28/2019 Clinical History: 89-year-old male Fall with left rib pain Findings: Heart remains mild to moderately enlarged. Retrocardiac density compatible with known hiatal hernia. No consolidation, pneumothorax, or pleural effusion. Nondisplaced minimally offset fractures of the left lateral ninth and 10th ribs. Impression: Nondisplaced to minimally offset fractures of the left lateral ninth and 10th ribs. Redemonstrated cardiomegaly. Known sizable hiatal hernia. No definite acute cardiopulmonary process.
[2019-12-05 22:23] VITALS: BP 137/83; PULSE 67
[2019-12-05] MEDS ORDERED: IBUPROFEN 600 MG TAB PO STA (22:23)
[2019-12-05] MEDS ORDERED: LIDOCAINE 5% PATCH TOPICAL STA (22:43)
[2019-12-06] MEDS ORDERED: LIDOCAINE 5% PATCH TOPICAL SCH (09:00)
== END 2019-12-05 23:05 | disposition home or self-care (01) ==
LOC: EC 21:04
DX: S22.42XA Multiple fractures of ribs, left side, initial encounter for closed fracture (principal); R05 Cough; J44.9 Chronic obstructive pulmonary disease, unspecified; K21.9 Gastro-esophageal reflux disease without esophagitis; I10 Essential (primary) hypertension; Z95.818 Presence of other cardiac implants and grafts; Z98.61 Coronary angioplasty status; Z96.642 Presence of left artificial hip joint; Z87.891 Personal history of nicotine dependence; Z79.51 Long term (current) use of inhaled steroids; Z79.82 Long term (current) use of aspirin; Z79.899 Other long term (current) drug therapy; Z91.048 Other nonmedicinal substance allergy status; W19.XXXA Unspecified fall, initial encounter; Y93.01 Activity, walking, marching and hiking
CPT/HCPCS: 99283

== ENCOUNTER → 2020-01-20 | Outpatient (CLI) | payer MEDICARE ==
[2020-01-20 14:00] LABS: T4, Free (Free Thyroxine) 1.26 ng/dL (0.78-2.19)
--- NOTE | 2020-01-20 14:57 | US ---
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 1.2 X 0.8 x 1.2 cm hyperechoic solid nodule at the lower pole with well-defined margins; . This nodule is wider than tall and shows intranodular vascularity. Prior size: 0.9 x 0.7 x 0.9 cm LEFT: # of nodules measured on left: 0 ISTHMUS: # of nodules measured in the isthmus: 0 Bilateral neck scanned, no evidence of lymphadenopathy. IMPRESSION: 1. Mildly increased size of right thyroid lobe hypoechoic nodule. Consider correlation with nuclear m edicine thyroid scan. Consider biopsy.
== END | disposition home or self-care (01) ==
LOC: RADUSWWP 12:26
PROVIDERS: ATTEND Internal Medicine Endocrinology, Diabetes & Metabolism
DX: E04.1 Nontoxic single thyroid nodule (principal); E03.8 Other specified hypothyroidism
CPT/HCPCS: 76536; 84439; 84443

== ENCOUNTER 2020-06-25 11:57 | Emergency (ER) | payer MEDICARE ==
--- NOTE | 2020-06-25 13:56 | XR ---
EXAMINATION TYPE: AP view pelvis and 2 views left hip DATE OF EXAM: 06/25/2020 COMPARISON: NONE HISTORY: 89-year-old male fall and pain FINDINGS: Osteopenia. There is prominent external rotation at the right hip limiting assessment of the lower femoral neck r egion. Corticated bone fragment above the hip joint likely chronically ununited fracture fragment fro m the greater tuberosity measuring 4.2 cm. This should be correlated clinically. Left hip hemiarthroplasty is demonstrated. There seems to be some axial joint space narrowing with al mesfin the [place] acetabular articular cartilage. Osteopenia. No periprosthetic fracture identified. IMPRESSION: 1. 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 Correlate clinically. 2. Left hip hemiarthroplasty with some underlying degenerative thinning of the [place] acetabular mc cular cartilage. No periprosthetic fracture seen.
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
[2020-06-25 14:40] VITALS: BP 115/68; PULSE 63; RESP 20; TEMP 98.2
== END 2020-06-25 14:39 | disposition home or self-care (01) ==
LOC: EC 11:57
DX: S70.02XA Contusion of left hip, initial encounter (principal); I25.2 Old myocardial infarction; J44.9 Chronic obstructive pulmonary disease, unspecified; K21.9 Gastro-esophageal reflux disease without esophagitis; I10 Essential (primary) hypertension; Z79.51 Long term (current) use of inhaled steroids; Z79.899 Other long term (current) drug therapy; Z79.82 Long term (current) use of aspirin; Z95.5 Presence of coronary angioplasty implant and graft; Z96.642 Presence of left artificial hip joint; Z87.81 Personal history of (healed) traumatic fracture; Z91.048 Other nonmedicinal substance allergy status; W17.89XA Other fall from one level to another, initial encounter
CPT/HCPCS: 73502; 99284

== ENCOUNTER 2020-07-28 18:04 | Observation (INO) | payer MEDICARE ==
--- NOTE | 2020-07-28 18:32 | ED ---
ENT HPI - General Chief complaint: ENT Stated complaint: swallowing issues Time Seen by Provider: 07/28/20 18:22 Source: patient Mode of arrival: ambulatory Limitations: no limitations - History of Present Illness Initial comments: 89-year-old male presenting to the emergency department with chief complaint of unable to swallow. Daughter is also present in the room. She states the patient has history of esophageal strictures and typically has the esophagus dilated. States his last dilation was about 2.5 years ago. She states the patient over the last 2 weeks has developed a pattern where he continues to clear his throat more than usual. Patient states he feels like there is a phlegm buildup in his throat. States that he is choking on water. She reports he ate dinner tonight and believes most of the food went down but there was some spit up. States she attempted to drink water afterwards and he feels that it did not go down. He denies any chest pain. - Related Data Home Medications Medication Instructions Recorded Confirmed Multivitamin [Men's Multi-Vitamin] 1 tab PO DAILY 08/03/14 07/28/20 Fluticasone/Salmeterol [Advair 1 puff INHALATION RT-BID 07/06/15 07/28/20 250-50 Diskus] Atorvastatin Calcium [Lipitor] 40 mg PO DAILY 12/11/16 07/28/20 Metoprolol Tartrate [Lopressor] 25 mg PO BID 08/12/17 07/28/20 Omeprazole 20 mg PO DAILY 04/18/18 07/28/20 Aspirin EC [Ecotrin Low Dose] 81 mg PO DAILY 03/28/19 07/28/20 Docusate [Colace] 100 mg PO DAILY 07/28/20 07/28/20 Donepezil [Aricept] 5 mg PO DAILY 07/28/20 07/28/20 Enalapril [Vasotec] 10 mg PO DAILY 07/28/20 07/28/20 Levothyroxine Sodium [Synthroid] 50 mcg PO DAILY 07/28/20 07/28/20 Memantine [Namenda] 10 mg PO BID 07/28/20 07/28/20 Previous Rx's Medication Instructions Recorded Nitroglycerin Sl Tabs [Nitrostat] 0.4 mg SUBLINGUAL Q5M PRN #25 tab 08/05/14 Allergies Allergy/AdvReac Type Severity Reaction Status Date / Time adhesive Allergy Rash/Hives-SEE Verified 07/28/20 18:43 COMMENT Review of Systems ROS Statement: Those systems with pertinent positive or pertinent negative responses have been documented in the HPI. ROS Other: All systems not noted in ROS Statement are negative. Past Medical History Past Medical History: Chest Pain / Angina, COPD, GERD/Reflux, Hypertension Additional Past Medical History / Comment(s): cardiac cath with PTCA. History of Any Multi-Drug Resistant Organisms: None Reported Past Surgical History: Cholecystectomy, Heart Catheterization, Hernia Repair, Joint Replacement, Orthopedic Surgery Additional Past Surgical History / Comment(s): 08/04/14 Cardiac cath with PTCA. LEFT FEMUR ORIF, PARTIAL LT HIP REPLACEMENT, NIKO CAT SX Past Anesthesia/Blood Transfusion Reactions: No Reported Reaction Past Psychological History: No Psychological Hx Reported Smoking Status: Never smoker Past Alcohol Use History: Daily Past Drug Use History: None Reported - Past Family History Father Family Medical History: No Reported History Mother Family Medical History: No Reported History General Exam Limitations: no limitations General appearance: alert, in no apparent distress Head exam: Present: atraumatic, normocephalic, normal inspection Eye exam: Present: normal appearance, PERRL, EOMI Pupils: Present: normal accommodation ENT exam: Present: normal exam, normal oropharynx, mucous membranes moist, TM's normal bilaterally, normal external ear exam Neck exam: Present: normal inspection, full ROM. Absent: tenderness Respiratory exam: Present: normal lung sounds bilaterally. Absent: respiratory distress, wheezes, rales, rhonchi, stridor, chest wall tenderness Cardiovascular Exam: Present: regular rate, normal rhythm, normal heart sounds GI/Abdominal exam: Present: soft. Absent: distended, tenderness, guarding, rebound Extremities exam: Present: normal inspection, full ROM, normal capillary refill Back exam: Present: normal inspection, full ROM. Absent: tenderness, CVA tenderness (R), CVA tenderness (L) Neurological exam: Present: alert, oriented X3 Psychiatric exam: Present: normal affect, normal mood Skin exam: Present: warm, dry, intact, normal color Course Vital Signs 07/28/20 18:11 Temperature 98.2 F Pulse Rate 65 Respiratory 18 Rate Blood Pressure 126/72 O2 Sat by Pulse 97 Oximetry Medical Decision Making - Medical Decision Making 89-year-old male presenting to emergency department with a chief complaint of swallowing issues. On physical examination, was not able to fully drink a couple water. He did start to vomit some of it up. He does have history of esophageal strictures. I discussed the case with who see him in the morning. will admit to observation. Also spoke to Dr Madrigal who will accept admission. case discusse with Dr feng BERMEO IVF Protonix - Lab Data Result diagrams: 07/28/20 18:47 07/28/20 18:47 Lab Results 07/28/20 07/28/20 Range/Units 18:47 18:47 WBC 6.9 (3.8-10.6) k/uL RBC 4.90 (4.30-5.90) m/uL Hgb 11.1 L (13.0-17.5) gm/dL Hct 36.2 L (39.0-53.0) % MCV 74.0 L (80.0-100.0) fL MCH 22.7 L (25.0-35.0) pg MCHC 30.7 L (31.0-37.0) g/dL RDW 18.2 H (11.5-15.5) % Plt Count 219 (150-450) k/uL MPV 7.3 Neutrophils % 62 % Lymphocytes % 23 % Monocytes % 8 % Eosinophils % 5 % Basophils % 1 % Neutrophils # 4.3 (1.3-7.7) k/uL Lymphocytes # 1.6 (1.0-4.8) k/uL Monocytes # 0.5 (0-1.0) k/uL Eosinophils # 0.3 (0-0.7) k/uL Basophils # 0.0 (0-0.2) k/uL Hypochromasia Moderate Anisocytosis Slight Microcytosis Moderate Sodium 141 (137-145) mmol/L Potassium 4.9 (3.5-5.1) mmol/L Chloride 106 (98-107) mmol/L Carbon Dioxide 30 (22-30) mmol/L Anion Gap 5 mmol/L BUN 25 H (9-20) mg/dL Creatinine 1.27 H (0.66-1.25) mg/dL Est GFR (CKD-EPI)AfAm 58 (>60 ml/min/1.73 sqM) Est GFR (CKD-EPI)NonAf 51 (>60 ml/min/1.73 sqM) Glucose 100 H (74-99) mg/dL Calcium 9.3 (8.4-10.2) mg/dL Total Bilirubin 0.3 (0.2-1.3) mg/dL AST 37 (17-59) U/L ALT 21 (4-49) U/L Alkaline Phosphatase 115 (38-126) U/L Total Protein 7.4 (6.3-8.2) g/dL Albumin 4.0 (3.5-5.0) g/dL Disposition Clinical Impression: Dysphagia Disposition: ADMITTED IP TO THIS HOSP Condition: Stable Is patient prescribed a controlled substance at d/c from ED?: No Referrals: Bowen Guevara MD [Primary Care Provider] - 1-2 days Time of Disposition: 20:23
[2020-07-28 18:54] LABS: Anisocytosis Slight; Basophils % (A) 1 %; Eosinophils # (A) 0.3 k/uL (0-0.7); Eosinophils % (A) 5 %; HCT 36.2 % (39.0-53.0); HGB 11.1 gm/dL (13.0-17.5); Hypochromasia Moderate; Lymphocytes # (A) 1.6 k/uL (1.0-4.8); Lymphocytes % (A) 23 %; MCH 22.7 pg (25.0-35.0); MCHC 30.7 g/dL (31.0-37.0); Mean Platelet Volume 7.3; Microcytosis Moderate; Monocytes # (A) 0.5 k/uL (0-1.0); Monocytes % (A) 8 %; Neutrophils # (A) 4.3 k/uL (1.3-7.7); Neutrophils % (A) 62 %; Platelet Count 219 k/uL (150-450); RDW 18.2 % (11.5-15.5); WBC 6.9 k/uL (3.8-10.6)
[2020-07-28 19:13] LABS: Calcium 9.3 mg/dL (8.4-10.2); Potassium 4.9 mmol/L (3.5-5.1); Total Bilirubin 0.3 mg/dL (0.2-1.3); Total Protein 7.4 g/dL (6.3-8.2)
--- NOTE | 2020-07-28 19:18 | XR ---
EXAMINATION TYPE: XR chest 2V DATE OF EXAM: 07/28/2020 COMPARISON: 12/05/2019 HISTORY: Rib pain TECHNIQUE: 2 views FINDINGS: There is no heart failure nor confluent pneumonic infiltrate. There is large hiatal hernia. Costophrenic angles are clear. Thoracic aorta is atheromatous. IMPRESSION: No active cardiopulmonary disease. Large hiatal hernia. No change.
--- NOTE | 2020-07-28 19:20 | XR ---
EXAMINATION TYPE: XR soft tissue neck DATE OF EXAM: 07/28/2020 COMPARISON: NONE HISTORY: Difficulty swallowing TECHNIQUE: 2 views FINDINGS: Epiglottis appears normal. Prevertebral soft tissues appear normal. There is no sign of rad iopaque foreign body. Subglottic trachea appears normal. Cervical spine is intact. IMPRESSION: Negative cervical soft tissue exam.
[2020-07-28] MEDS ORDERED: SODIUM CHLORIDE 0.9% 1,000 ML IV STA (20:19)
[2020-07-28] MEDS ORDERED: LORazepam 2 MG/ML INJ IV PRN (20:20)
[2020-07-28] MEDS ORDERED: NALOXONE 0.4 MG/ML 1 ML VIAL IV PRN (20:20)
[2020-07-28] MEDS ORDERED: ONDANSETRON 4 MG/2 ML VIAL IVP PRN (20:20)
[2020-07-28] MEDS ORDERED: MORPHINE SULFATE 4 MG/ML SYRINGE IV PRN (20:20)
[2020-07-28] MEDS ORDERED: HYDROmorphone 0.5 MG/0.5 ML SYRINGE IVP PRN (20:20)
[2020-07-29] MEDS ORDERED: PANTOPRAZOLE 40 MG/10 ML VIAL IV SCH (09:00)
[2020-07-29] MEDS ORDERED: IV FLUID CONTINUATION 100 ML IV ONE (09:17)
[2020-07-29] MEDS ORDERED: PROPOFOL 10 MG/ML 20 ML VIAL IV ONE (09:20)
[2020-07-29] MEDS ORDERED: LACTATED RINGERS 1,000 ML IV ONE (09:25)
--- NOTE | 2020-07-29 09:37 | P.PCN ---
Date of Procedure: 07/29/20 Procedure(s) Performed: BRIEF HISTORY: Patient is a 89-year-old, pleasant, white male admitted to the hospital with difficulty swallowing since yesterday after eating and before dinner. He came to the emergency room and was able to swallow liquids and hence he was admitted to the hospital for EGD this morning. The patient has intermittent dysphagia to solids for the last 3 weeks duration.. He had an EGD with dilation done about 2-1/2 years ago PROCEDURE PERFORMED: Esophagogastroduodenoscopy with dilation. PREOPERATIVE DIAGNOSIS: Acute food impaction/dysphagia for the last 3 weeks' duration. IV sedation per anesthesia. PROCEDURE: After informed consent was obtained, the patient was brought into the endoscopy unit. IV sedation was administered by Anesthesia under continuous monitoring. Initially the Olympus GIF-140 video endoscope was inserted into the mouth. Esophagus intubated without any difficulty. It was gradually advanced into the stomach and duodenum and carefully examined. There was no esophageal foreign body seen. The bulb and the second part of the duodenum appeared clifford l. The scope at this time was withdrawn to the stomach, adequately insufflated with air, and upon careful examination, mucosa of the antrum, body, cardia and the fundus appeared normal. However there will there was a large hiatal hernia noted with some angulation of the stomach. The scope was then withdrawn into the esophagus. The GE junction was located at 39 cm from the incisors. It was a distal esophageal widely patent Schatzki's ring identified which was dilated using 18-20 m TTS balloon in a sequential fashion for 90 seconds. There was some oozing noted at the site of dilation. The rest of the esophagus appeared normal. There were no erosions or ulcerations seen and the patient tolerated the procedure well. IMPRESSION: 1. No esophageal foreign body seen. 2. Distal esophageal Schatzki's ring status post balloon dilation using 18-20 mm TTS balloon as described. 3. Moderate to large size hiatal hernia RECOMMENDATIONS: The findings of this examination were discussed with the patient . He'll be started on a clear liquid diet and diet will be advanced as tolerated. Deep Prilosec 20 mg daily. He can be discharged home later today...
--- NOTE | 2020-07-29 09:59 | CONS ---
CONSULTATION DATE OF SERVICE: 07/29/2020 REASON FOR CONSULTATION: Acute food impaction. HISTORY OF PRESENT ILLNESS: The patient is an 89-year-old pleasant white male who came to the emergency room yesterday evening complaining of dysphagia since yesterday afternoon. He was eating beef for lunch and could not swallow any further. However, was able to handle his own secretions. He came to the emergency room and was spitting up quite a bit but he was given a glass of water to drink and was able to keep it down and hence he was admitted to the hospital for overnight observation and possible EGD in the morning. The patient states that he had an upper endoscopy with dilation done about 2-1/2 years ago. PAST MEDICAL HISTORY: Coronary artery disease, history of hypertension, hyperlipidemia, gastroesophageal reflux disease and hypothyroidism. MEDICATIONS: At home, Namenda, Lopressor, Vasotec, Synthroid, Aricept, Colace, low-dose aspirin, multivitamin, Advair, Lopressor, Lipitor and Prilosec. ALLERGIES: ADHESIVE TAPE. PAST SURGICAL HISTORY: Cholecystectomy, cardiac catheterization, hernia repair, bilateral cataract surgery and left hip replacement. SOCIAL HISTORY: No smoking. No alcohol use. FAMILY HISTORY: Unremarkable. REVIEW OF SYSTEMS: CARDIOPULMONARY: No chest pain, shortness of breath. : No dysuria or hematuria. MUSCULOSKELETAL: Unremarkable. SKIN: Unremarkable. ENDOCRINE: Unremarkable. PSYCHIATRIC: Unremarkable. NEUROLOGY: Unremarkable. ENT/VISION: Unremarkable. CONSTITUTIONAL: No recent weight loss. No fever, chills, night sweats. PHYSICAL EXAMINATION: He appears comfortable. No apparent distress. VITAL SIGNS: Stable. Blood pressure is 126/72, pulse 82 and afebrile. HEENT: Examination unremarkable. Conjunctivae are pink. Sclerae anicteric. Oral cavity no lesions. NECK: No JVD or lymph node enlargement. CHEST: Clear to auscultation. HEART: Regular rate and rhythm. ABDOMEN: Soft. Bowel sounds are positive. No organomegaly. EXTREMITIES: No pedal edema. LABS: Labs done from this morning WBC 6.9, hemoglobin 11.1, platelets 219. ALT, AST, T bilirubin and alkaline phosphatase are normal. BUN 25, creatinine 1.27. IMPRESSION: 1. Acute food impaction. 2. Intermittent dysphagia to solids. 3. Gastroesophageal reflux disease. RECOMMENDATION: 1. We will proceed with EGD with foreign body removal today. 2. Discussed with the patient risks, benefits and complications and he is agreeable to it. 3. Keep him n.p.o. for now. Thank you for this consultation. HERMILO / LINDA: [id number] /
[2020-07-29 12:06] VITALS: RESP 16; TEMP 97.6
[2020-07-29 12:08] VITALS: BP 104/61; PULSE 69
== END 2020-07-29 15:54 | disposition home or self-care (01) ==
LOC: EC 18:04 → 6NMEDSUR 20:28
PROVIDERS: ADMIT Hospitalist; ATTEND Hospitalist
DX: K22.2 Esophageal obstruction (principal); K44.9 Diaphragmatic hernia without obstruction or gangrene; E03.9 Hypothyroidism, unspecified; E78.5 Hyperlipidemia, unspecified; I25.10 Atherosclerotic heart disease of native coronary artery without angina pectoris; J44.9 Chronic obstructive pulmonary disease, unspecified; I10 Essential (primary) hypertension; K21.9 Gastro-esophageal reflux disease without esophagitis; Z79.82 Long term (current) use of aspirin; Z79.890 Hormone replacement therapy; Z79.51 Long term (current) use of inhaled steroids; Z91.048 Other nonmedicinal substance allergy status; Z79.899 Other long term (current) drug therapy; Z96.642 Presence of left artificial hip joint; Z90.49 Acquired absence of other specified parts of digestive tract; Z98.42 Cataract extraction status, left eye; Z98.41 Cataract extraction status, right eye; Z95.5 Presence of coronary angioplasty implant and graft
CPT/HCPCS: 96361 ×2; 96360; 99285; 36415; 80053; 85025; 70360; 71046; 43249; G0378 ×2; J2704; C9113; C1726

== ENCOUNTER 2020-08-25 18:50 | Emergency (ER) | payer MEDICARE ==
[2020-08-25 18:56] VITALS: TEMP 97.8
--- NOTE | 2020-08-25 19:02 | ED ---
General Adult HPI - General Chief complaint: Shortness of Breath Stated complaint: UBALDO Time Seen by Provider: 08/25/20 18:58 Source: patient, family Mode of arrival: wheelchair Limitations: no limitations - History of Present Illness Initial comments: Patient presents the ED with his daughter for evaluation. Per daughter, the patient has been experiencing labored breathing and has been complaining of feeling dyspneic for the past couple of hours. Per daughter, the patient has a history of COPD. Patient reports that he ran out of his inhalers while ago. Patient denies having any pain, fever or chills, headache, focal neuro deficit, chest pain or pressure, cough or cold symptoms, palpitations, dizziness, nausea/vomiting/diarrhea, abdominal pain, bloody or melanotic stool, dysuria or urinary symptoms, decreased urine output, leg or calf swelling or pain, or any other symptoms or complaints. - Related Data Home Medications Medication Instructions Recorded Confirmed Multivitamin [Men's Multi-Vitamin] 1 tab PO DAILY 08/03/14 08/25/20 Fluticasone/Salmeterol [Advair 1 puff INHALATION RT-BID 07/06/15 08/25/20 250-50 Diskus] Atorvastatin Calcium [Lipitor] 40 mg PO DAILY 12/11/16 08/25/20 Metoprolol Tartrate [Lopressor] 25 mg PO BID 08/12/17 08/25/20 Omeprazole 20 mg PO DAILY 04/18/18 08/25/20 Aspirin EC [Ecotrin Low Dose] 81 mg PO DAILY 03/28/19 08/25/20 Docusate [Colace] 100 mg PO DAILY 07/28/20 08/25/20 Donepezil [Aricept] 5 mg PO DAILY 07/28/20 08/25/20 Enalapril [Vasotec] 10 mg PO DAILY 07/28/20 08/25/20 Levothyroxine Sodium [Synthroid] 50 mcg PO DAILY 07/28/20 08/25/20 Memantine [Namenda] 10 mg PO BID 07/28/20 08/25/20 Previous Rx's Medication Instructions Recorded Nitroglycerin Sl Tabs [Nitrostat] 0.4 mg SUBLINGUAL Q5M PRN #25 tab 08/05/14 Allergies Allergy/AdvReac Type Severity Reaction Status Date / Time adhesive Allergy Rash/Hives-SEE Verified 08/25/20 20:17 COMMENT Review of Systems ROS Statement: Those systems with pertinent positive or pertinent negative responses have been documented in the HPI. ROS Other: All systems not noted in ROS Statement are negative. Past Medical History Past Medical History: Chest Pain / Angina, COPD, GERD/Reflux, Hypertension Additional Past Medical History / Comment(s): cardiac cath with PTCA. History of Any Multi-Drug Resistant Organisms: None Reported Past Surgical History: Cholecystectomy, Heart Catheterization, Hernia Repair, Joint Replacement, Orthopedic Surgery Additional Past Surgical History / Comment(s): 08/04/14 Cardiac cath with PTCA. LEFT FEMUR ORIF, PARTIAL LT HIP REPLACEMENT, NIKO CAT SX Past Anesthesia/Blood Transfusion Reactions: No Reported Reaction Past Psychological History: No Psychological Hx Reported Smoking Status: Never smoker Past Alcohol Use History: Daily Past Drug Use History: None Reported - Past Family History Father Family Medical History: No Reported History Mother Family Medical History: No Reported History General Exam Limitations: no limitations General appearance: alert, in no apparent distress Head exam: Present: atraumatic, normocephalic Eye exam: Present: normal appearance, EOMI ENT exam: Present: mucous membranes moist Neck exam: Present: other (Trachea is in midline) Respiratory exam: Present: normal lung sounds bilaterally. Absent: respiratory distress, wheezes, rales, rhonchi, stridor Cardiovascular Exam: Present: regular rate, normal rhythm, normal heart sounds, other (Normal radial pulses bilaterally) GI/Abdominal exam: Present: soft. Absent: distended, tenderness, guarding Extremities exam: Present: other (Negative Homans sign bilaterally). Absent: tenderness, pedal edema, calf tenderness Neurological exam: Present: alert, oriented X3. Absent: motor sensory deficit Psychiatric exam: Present: normal affect, normal mood Skin exam: Present: warm, dry, intact, normal color Course Vital Signs 08/25/20 08/25/20 08/25/20 18:53 19:44 20:13 Temperature 97.8 F Pulse Rate 65 62 Respiratory 22 18 18 Rate Blood Pressure 137/89 135/83 O2 Sat by Pulse 97 100 Oximetry 08/25/20 08/25/20 20:33 21:47 Temperature Pulse Rate 52 L 55 L Respiratory 18 16 Rate Blood Pressure 118/79 117/78 O2 Sat by Pulse 95 95 Oximetry - Reevaluation(s) Reevaluation #1: 08/25/20 21:53 Patient states that his dyspnea has now resolved, and he denies having any symptoms currently. Patient remains alert and breathing comfortably with a normal room air oxygen saturation. Patient continues to deny having any chest pain or pressure. Patient and daughter are aware the patient's test results, and they both feel comfortable with the patient going home at this time. Daughter states that she'll be sure to get the patient's inhalers for him tomorrow. Patient and daughter were counseled about dyspnea, and they were clearly explained return and follow-up instructions. Patient was instructed to have a low threshold for return to the ED should his symptoms worsen. Patient and daughter were instructed to have the patient follow up closely with his primary care provider. EKG Findings - EKG Comments: EKG Findings:: Normal sinus rhythm, ventricular rate of 63 bpm, single PVC, right bundle branch block, normal DE interval, QRS duration of 142 ms, normal QT interval, normal axis, no ST or T-wave abnormality, no significant change when compared to 03/28/2019 EKG Medical Decision Making - Medical Decision Making Patient's labs are fairly unremarkable. Patient's troponin and BNP are within normal limits. Patient's CT angiography chest is negative for PE. I have e xplained to the patient and his daughter that perhaps the patient's dyspnea was secondary to him running out of his inhalers and possible COPD, but patient is not wheezing in the ED, and he has a normal room air oxygen saturation. I do not suspect an emergent medical condition. Patient states that his dyspnea has now resolved. Will discharge patient home with his daughter at this time with instructions for close outpatient PCP follow-up. - Lab Data Result diagrams: 08/25/20 19:26 08/25/20 19:26 Lab Results 08/25/20 08/25/20 08/25/20 Range/Units 19:26 19:26 19:26 WBC 7.2 (3.8-10.6) k/uL RBC 4.64 (4.30-5.90) m/uL Hgb 11.2 L (13.0-17.5) gm/dL Hct 35.2 L (39.0-53.0) % MCV 75.9 L (80.0-100.0) fL MCH 24.2 L (25.0-35.0) pg MCHC 31.8 (31.0-37.0) g/dL RDW 19.1 H (11.5-15.5) % Plt Count 196 (150-450) k/uL MPV 7.6 Neutrophils % 67 % Lymphocytes % 15 % Monocytes % 10 % Eosinophils % 5 % Basophils % 1 % Neutrophils # 4.8 (1.3-7.7) k/uL Lymphocytes # 1.1 (1.0-4.8) k/uL Monocytes # 0.7 (0-1.0) k/uL Eosinophils # 0.3 (0-0.7) k/uL Basophils # 0.1 (0-0.2) k/uL Hypochromasia Moderate Anisocytosis Slight Microcytosis Moderate PT 10.5 (9.0-12.0) sec INR 1.0 (<1.2) APTT 22.5 (22.0-30.0) sec D-Dimer 0.69 H (<0.60) mg/L FEU Sodium 139 (137-145) mmol/L Potassium 4.7 (3.5-5.1) mmol/L Chloride 105 (98-107) mmol/L Carbon Dioxide 28 (22-30) mmol/L Anion Gap 6 mmol/L BUN 22 H (9-20) mg/dL Creatinine 1.03 (0.66-1.25) mg/dL Est GFR (CKD-EPI)AfAm 76 (>60 ml/min/1.73 sqM) Est GFR (CKD-EPI)NonAf 65 (>60 ml/min/1.73 sqM) Glucose 111 H (74-99) mg/dL Plasma Lactic Acid Shyam (0.7-2.0) mmol/L Calcium 8.9 (8.4-10.2) mg/dL Total Bilirubin 0.3 (0.2-1.3) mg/dL AST 36 (17-59) U/L ALT 21 (4-49) U/L Alkaline Phosphatase 98 (38-126) U/L Troponin I (0.000-0.034) ng/mL NT-Pro-B Natriuret Pep pg/mL Total Protein 7.0 (6.3-8.2) g/dL Albumin 3.7 (3.5-5.0) g/dL Coronavirus (PCR) (Not Detectd) 08/25/20 08/25/20 08/25/20 Range/Units 19:26 19:26 19:26 WBC (3.8-10.6) k/uL RBC (4.30-5.90) m/uL Hgb (13.0-17.5) gm/dL Hct (39.0-53.0) % MCV (80.0-100.0) fL MCH (25.0-35.0) pg MCHC (31.0-37.0) g/dL RDW (11.5-15.5) % Plt Count (150-450) k/uL MPV Neutrophils % % Lymphocytes % % Monocytes % % Eosinophils % % Basophils % % Neutrophils # (1.3-7.7) k/uL Lymphocytes # (1.0-4.8) k/uL Monocytes # (0-1.0) k/uL Eosinophils # (0-0.7) k/uL Basophils # (0-0.2) k/uL Hypochromasia Anisocytosis Microcytosis PT (9.0-12.0) sec INR (<1.2) APTT (22.0-30.0) sec D-Dimer (<0.60) mg/L FEU Sodium (137-145) mmol/L Potassium (3.5-5.1) mmol/L Chloride (98-107) mmol/L Carbon Dioxide (22-30) mmol/L Anion Gap mmol/L BUN (9-20) mg/dL Creatinine (0.66-1.25) mg/dL Est GFR (CKD-EPI)AfAm (>60 ml/min/1.73 sqM) Est GFR (CKD-EPI)NonAf (>60 ml/min/1.73 sqM) Glucose (74-99) mg/dL Plasma Lactic Acid Shyam 1.5 (0.7-2.0) mmol/L Calcium (8.4-10.2) mg/dL Total Bilirubin (0.2-1.3) mg/dL AST (17-59) U/L ALT (4-49) U/L Alkaline Phosphatase (38-126) U/L Troponin I <0.012 (0.000-0.034) ng/mL NT-Pro-B Natriuret Pep 411 pg/mL Total Protein (6.3-8.2) g/dL Albumin (3.5-5.0) g/dL Coronavirus (PCR) (Not Detectd) 08/25/20 Range/Units 19:44 WBC (3.8-10.6) k/uL RBC (4.30-5.90) m/uL Hgb (13.0-17.5) gm/dL Hct (39.0-53.0) % MCV (80.0-100.0) fL MCH (25.0-35.0) pg MCHC (31.0-37.0) g/dL RDW (11.5-15.5) % Plt Count (150-450) k/uL MPV Neutrophils % % Lymphocytes % % Monocytes % % Eosinophils % % Basophils % % Neutrophils # (1.3-7.7) k/uL Lymphocytes # (1.0-4.8) k/uL Monocytes # (0-1.0) k/uL Eosinophils # (0-0.7) k/uL Basophils # (0-0.2) k/uL Hypochromasia Anisocytosis Microcytosis PT (9.0-12.0) sec INR (<1.2) APTT (22.0-30.0) sec D-Dimer (<0.60) mg/L FEU Sodium (137-145) mmol/L Potassium (3.5-5.1) mmol/L Chloride (98-107) mmol/L Carbon Dioxide (22-30) mmol/L Anion Gap mmol/L BUN (9-20) mg/dL Creatinine (0.66-1.25) mg/dL Est GFR (CKD-EPI)AfAm (>60 ml/min/1.73 sqM) Est GFR (CKD-EPI)NonAf (>60 ml/min/1.73 sqM) Glucose (74-99) mg/dL Plasma Lactic Acid Shyam (0.7-2.0) mmol/L Calcium (8.4-10.2) mg/dL Total Bilirubin (0.2-1.3) mg/dL AST (17-59) U/L ALT (4-49) U/L Alkaline Phosphatase (38-126) U/L Troponin I (0.000-0.034) ng/mL NT-Pro-B Natriuret Pep pg/mL Total Protein (6.3-8.2) g/dL Albumin (3.5-5.0) g/dL Coronavirus (PCR) Not Detected (Not Detectd) - Radiology Data Radiology results: report reviewed (Chest x-ray: No active cardiopulmonary disease, large hiatal hernia, no change; CT angiography chest: No pulmonary em bolism, large hiatal hernia, pulmonary fibrotic changes and calcified pleural plaque at the lung bases, no suspicious pulmonary mass ) Disposition Clinical Impression: Dyspnea Disposition: HOME SELF-CARE Condition: Stable Instructions (If sedation given, give patient instructions): Dyspnea (ED) Additional Instructions: Return to the ER immediately should you develop increased shortness of breath, chest pain, a fever, feeling dizzy or faint, or new or worsening symptoms. Follow up closely with your primary care provider. Is patient prescribed a controlled substance at d/c from ED?: No Referrals: Bowen Guevara MD [Primary Care Provider] - 1-2 days Time of Disposition: 21:55
[2020-08-25 19:40] LABS: Anisocytosis Slight; Basophils # (A) 0.1 k/uL (0-0.2); Basophils % (A) 1 %; Eosinophils # (A) 0.3 k/uL (0-0.7); Eosinophils % (A) 5 %; HCT 35.2 % (39.0-53.0); HGB 11.2 gm/dL (13.0-17.5); Hypochromasia Moderate; Lymphocytes # (A) 1.1 k/uL (1.0-4.8); Lymphocytes % (A) 15 %; MCH 24.2 pg (25.0-35.0); MCHC 31.8 g/dL (31.0-37.0); MCV 75.9 fL (80.0-100.0); Mean Platelet Volume 7.6; Microcytosis Moderate; Monocytes # (A) 0.7 k/uL (0-1.0); Monocytes % (A) 10 %; Neutrophils # (A) 4.8 k/uL (1.3-7.7); Neutrophils % (A) 67 %; Platelet Count 196 k/uL (150-450); RBC 4.64 m/uL (4.30-5.90); RDW 19.1 % (11.5-15.5); WBC 7.2 k/uL (3.8-10.6)
--- NOTE | 2020-08-25 19:45 | XR ---
EXAMINATION TYPE: XR chest 2V DATE OF EXAM: 08/25/2020 COMPARISON: 07/28/2020 HISTORY: Difficulty breathing TECHNIQUE: 2 views FINDINGS: There is large hiatal hernia. Thoracic aorta is atheromatous. Lungs are clear of infiltrate . There is no heart failure. There are no hilar masses. Bony thorax is intact. IMPRESSION: No active cardiopulmonary disease. Large hiatal hernia. No change.
[2020-08-25 19:48] LABS: Albumin 3.7 g/dL (3.5-5.0); Calcium 8.9 mg/dL (8.4-10.2); Potassium 4.7 mmol/L (3.5-5.1); Total Bilirubin 0.3 mg/dL (0.2-1.3)
[2020-08-25 20:10] LABS: Partial Thromboplastin Time 22.5 sec (22.0-30.0); Prothrombin Time 10.5 sec (9.0-12.0)
[2020-08-25 20:23] LABS: D-Dimer 0.69 mg/L FEU (<0.60)
[2020-08-25] MEDS ORDERED: SODIUM CHLORIDE 0.9% 500 ML 500 ML IV ONE (20:25)
--- NOTE | 2020-08-25 21:15 | CT ---
EXAMINATION TYPE: CT chest angio for PE DATE OF EXAM: 08/25/2020 COMPARISON: None HISTORY: Elevated d-dimer, Dyspnea CT DLP: 263.6 mGycm Automated exposure control for dose reduction was used. CONTRAST: Performed with IV Contrast, patient injected with 75 mL of Isovue 370. There are 3-D post processed images. The lungs are clear of consolidation. There is mild subsegmental atelectasis at the posterior lung ba ses. Heart size is normal. There is no pericardial effusion. There is hiatal hernia. There is intrath oracic stomach. There are calcified splenic granulomata. There is normal contrast opacification of the pulmonary arteries. There are no filling defects. There is mild atheromatous change in the thoracic aorta. There is no aneurysm or dissection. There is no mediastinal adenopathy. There are no hilar masses. There is no pleural effusion. The bony thorax is intact. There is some calcified pleural plaque on the right posterior chest wall. IMPRESSION: No evidence of pulmonary embolism. Large hiatal hernia. Pulmonary fibrotic changes and calcified pleural plaque at the lung bases. No suspicious pulmonary ma ss.
[2020-08-25 21:49] VITALS: RESP 16
[2020-08-25 22:40] VITALS: BP 124/73; PULSE 61
== END 2020-08-25 22:30 | disposition home or self-care (01) ==
LOC: EC 18:50
DX: R06.00 Dyspnea, unspecified (principal); I10 Essential (primary) hypertension; J44.9 Chronic obstructive pulmonary disease, unspecified; I20.9 Angina pectoris, unspecified; K21.9 Gastro-esophageal reflux disease without esophagitis; Z20.822 Contact with and (suspected) exposure to COVID-19; Z79.899 Other long term (current) drug therapy; Z79.51 Long term (current) use of inhaled steroids; Z79.82 Long term (current) use of aspirin; Z79.890 Hormone replacement therapy; Z91.048 Other nonmedicinal substance allergy status; Z96.642 Presence of left artificial hip joint
CPT/HCPCS: 36415; 93005; 85379; 83880; 80053; 83605; 84484; 85025; 85610; 85730; 87635; 71046; 71275; 99285; 96360; Q9967

== ENCOUNTER → 2020-09-03 | Outpatient (CLI) | payer MEDICARE ==
--- NOTE | 2020-09-03 15:04 | XR ---
Left foot HISTORY: Pain in toes 3 views of the left foot Correlation to prior left foot dated 02/10/2013 Bone mineralization is reduced. Joint spaces and alignment are stable. There is no fracture or disloc ation. Left tissue swelling noted at the second digit. No radiopaque foreign body is evident. There i s no periostitis to suggest osteomyelitis. IMPRESSION: Soft tissue swelling second digit.
== END ==
LOC: RADXRMAIN 10:06
PROVIDERS: ATTEND Nurse Practitioner
DX: M79.675 Pain in left toe(s) (principal); M79.89 Other specified soft tissue disorders

== ENCOUNTER 2021-03-01 11:00 | Inpatient (IN) | payer MEDICARE ==
--- NOTE | 2021-03-01 12:43 | ED ---
General Adult HPI - General Chief complaint: Recheck/Abnormal Lab/Rx Stated complaint: sent from Dr for transfusion Time Seen by Provider: 03/01/21 12:07 Source: patient, RN notes reviewed Mode of arrival: ambulatory Limitations: no limitations - History of Present Illness Initial comments: This 89-year-old male presents emergency Department with chief complaints of anemia. Patient has been seen in office by Dr. Guevara and had Hemoccult, labs found to have and dropping hemoglobin for normal reasons. Patient is on no blood thinners he does feel fatigued but also states that he is elderly. Patient denies any chest pain, increasing shortness of breath, headache or dizziness. No other complaints. - Related Data Home Medications Medication Instructions Recorded Confirmed Multivitamin [Men's Multi-Vitamin] 1 tab PO HS 08/03/14 03/01/21 Atorvastatin Calcium [Lipitor] 40 mg PO DAILY 12/11/16 03/01/21 Metoprolol Tartrate [Lopressor] 25 mg PO BID 08/12/17 03/01/21 Omeprazole 20 mg PO DAILY 04/18/18 03/01/21 Aspirin EC [Ecotrin Low Dose] 81 mg PO HS 03/28/19 03/01/21 Docusate [Colace] 100 mg PO HS 07/28/20 03/01/21 Donepezil [Aricept] 5 mg PO DAILY 07/28/20 03/01/21 Memantine [Namenda] 10 mg PO BID 07/28/20 03/01/21 Enalapril Maleate 2.5 mg PO DAILY 03/01/21 03/01/21 Fluticasone/Salmeterol [Advair Hfa 1 puff INHALATION RT-BID 03/01/21 03/01/21 115-21 Mcg Inhaler] Levothyroxine Sodium [Synthroid] 75 mcg PO DAILY 03/01/21 03/01/21 Previous Rx's Medication Instructions Recorded Nitroglycerin Sl Tabs [Nitrostat] 0.4 mg SUBLINGUAL Q5M PRN #25 tab 08/05/14 Allergies Allergy/AdvReac Type Severity Reaction Status Date / Time adhesive Allergy Rash/Hives-SEE Verified 03/01/21 11:18 COMMENT Review of Systems ROS Statement: Those systems with pertinent positive or pertinent negative responses have been documented in the HPI. ROS Other: All systems not noted in ROS Statement are negative. Past Medical History Past Medical History: Chest Pain / Angina, COPD, GERD/Reflux, Hypertension Additional Past Medical History / Comment(s): cardiac cath with PTCA. History of Any Multi-Drug Resistant Organisms: None Reported Past Surgical History: Cholecystectomy, Heart Catheterization, Hernia Repair, Joint Replacement, Orthopedic Surgery Additional Past Surgical History / Comment(s): 08/04/14 Cardiac cath with PTCA. LEFT FEMUR ORIF, PARTIAL LT HIP REPLACEMENT, NIKO CAT SX Past Anesthesia/Blood Transfusion Reactions: No Reported Reaction Past Psychological History: No Psychological Hx Reported Smoking Status: Never smoker Past Alcohol Use History: Daily Past Drug Use History: None Reported - Past Family History Father Family Medical History: No Reported History Mother Family Medical History: No Reported History General Exam Limitations: no limitations General appearance: alert, in no apparent distress Head exam: Present: atraumatic, normocephalic, normal inspection Neck exam: Present: normal inspection. Absent: tenderness, meningismus, lymphadenopathy Respiratory exam: Present: normal lung sounds bilaterally. Absent: respiratory distress, wheezes, rales, rhonchi, stridor Cardiovascular Exam: Present: regular rate, normal rhythm, normal heart sounds. Absent: systolic murmur, diastolic murmur, rubs, gallop, clicks GI/Abdominal exam: Present: soft, normal bowel sounds. Absent: distended, tenderness, guarding, rebound, rigid Course Vital Signs 03/01/21 11:15 Temperature 98.0 F Pulse Rate 55 L Respiratory 16 Rate Blood Pressure 87/51 O2 Sat by Pulse 97 Oximetry Medical Decision Making - Medical Decision Making Patient's hemoglobin is 8.5 which is down from hemoglobin 8.5 yesterday. Patiently admitted for anemia with consult GI and hematology. - Lab Data Result diagrams: 03/01/21 12:38 03/01/21 12:38 Lab Results 03/01/21 03/01/21 03/01/21 Range/Units 12:38 12:38 12:38 WBC 6.5 (3.8-10.6) k/uL RBC 3.76 L (4.30-5.90) m/uL Hgb 8.5 L (13.0-17.5) gm/dL Hct 27.3 L (39.0-53.0) % MCV 72.8 L (80.0-100.0) fL MCH 22.6 L (25.0-35.0) pg MCHC 31.1 (31.0-37.0) g/dL RDW 18.5 H (11.5-15.5) % Plt Count 164 (150-450) k/uL MPV 8.0 Neutrophils % 70 % Lymphocytes % 15 % Monocytes % 9 % Eosinophils % 4 % Basophils % 1 % Neutrophils # 4.5 (1.3-7.7) k/uL Lymphocytes # 1.0 (1.0-4.8) k/uL Monocytes # 0.6 (0-1.0) k/uL Eosinophils # 0.2 (0-0.7) k/uL Basophils # 0.0 (0-0.2) k/uL Hypochromasia Marked Poikilocytosis Slight Anisocytosis Slight Microcytosis Moderate PT 11.3 (9.0-12.0) sec INR 1.1 (<1.2) APTT 25.1 (22.0-30.0) sec Sodium 139 (137-145) mmol/L Potassium 4.4 (3.5-5.1) mmol/L Chloride 110 H (98-107) mmol/L Carbon Dioxide 24 (22-30) mmol/L Anion Gap 5 mmol/L BUN 23 H (9-20) mg/dL Creatinine 1.05 (0.66-1.25) mg/dL Est GFR (CKD-EPI)AfAm 73 (>60 ml/min/1.73 sqM) Est GFR (CKD-EPI)NonAf 64 (>60 ml/min/1.73 sqM) Glucose 97 (74-99) mg/dL Calcium 8.4 (8.4-10.2) mg/dL Magnesium 2.1 (1.6-2.3) mg/dL Total Bilirubin 0.2 (0.2-1.3) mg/dL AST 30 (17-59) U/L ALT 16 (4-49) U/L Alkaline Phosphatase 81 (38-126) U/L Total Protein 6.0 L (6.3-8.2) g/dL Albumin 3.2 L (3.5-5.0) g/dL Blood Type Blood Type Recheck Bld Type Recheck Status Antibody Screen Spec Expiration Date 03/01/21 Range/Units 12:38 WBC (3.8-10.6) k/uL RBC (4.30-5.90) m/uL Hgb (13.0-17.5) gm/dL Hct (39.0-53.0) % MCV (80.0-100.0) fL MCH (25.0-35.0) pg MCHC (31.0-37.0) g/dL RDW (11.5-15.5) % Plt Count (150-450) k/uL MPV Neutrophils % % Lymphocytes % % Monocytes % % Eosinophils % % Basophils % % Neutrophils # (1.3-7.7) k/uL Lymphocytes # (1.0-4.8) k/uL Monocytes # (0-1.0) k/uL Eosinophils # (0-0.7) k/uL Basophils # (0-0.2) k/uL Hypochromasia Poikilocytosis Anisocytosis Microcytosis PT (9.0-12.0) sec INR (<1.2) APTT (22.0-30.0) sec Sodium (137-145) mmol/L Potassium (3.5-5.1) mmol/L Chloride (98-107) mmol/L Carbon Dioxide (22-30) mmol/L Anion Gap mmol/L BUN (9-20) mg/dL Creatinine (0.66-1.25) mg/dL Est GFR (CKD-EPI)AfAm (>60 ml/min/1.73 sqM) Est GFR (CKD-EPI)NonAf (>60 ml/min/1.73 sqM) Glucose (74-99) mg/dL Calcium (8.4-10.2) mg/dL Magnesium (1.6-2.3) mg/dL Total Bilirubin (0.2-1.3) mg/dL AST (17-59) U/L ALT (4-49) U/L Alkaline Phosphatase (38-126) U/L Total Protein (6.3-8.2) g/dL Albumin (3.5-5.0) g/dL Blood Type A Positive Blood Type Recheck A Pos Bld Type Recheck Status No Antibody Screen NEGATIVE Spec Expiration Date 03/04/20212337 Disposition Clinical Impression: Anemia Disposition: ADMITTED IP TO THIS [facility] Condition: Fair Referrals: Bowen Guevara MD [Primary Care Provider] - 1-2 days
[2021-03-01 12:50] LABS: Anisocytosis Slight; Basophils % (A) 1 %; Eosinophils # (A) 0.2 k/uL (0-0.7); Eosinophils % (A) 4 %; HCT 27.3 % (39.0-53.0); HGB 8.5 gm/dL (13.0-17.5); Hypochromasia Marked; Lymphocytes % (A) 15 %; MCH 22.6 pg (25.0-35.0); MCHC 31.1 g/dL (31.0-37.0); MCV 72.8 fL (80.0-100.0); Microcytosis Moderate; Monocytes # (A) 0.6 k/uL (0-1.0); Monocytes % (A) 9 %; Neutrophils # (A) 4.5 k/uL (1.3-7.7); Neutrophils % (A) 70 %; Platelet Count 164 k/uL (150-450); Poikilocytosis Slight; RBC 3.76 m/uL (4.30-5.90); RDW 18.5 % (11.5-15.5); WBC 6.5 k/uL (3.8-10.6)
[2021-03-01 13:05] LABS: Albumin 3.2 g/dL (3.5-5.0); Calcium 8.4 mg/dL (8.4-10.2); Magnesium 2.1 mg/dL (1.6-2.3); Potassium 4.4 mmol/L (3.5-5.1); Total Bilirubin 0.2 mg/dL (0.2-1.3)
[2021-03-01 13:29] LABS: INR 1.1 (<1.2); Partial Thromboplastin Time 25.1 sec (22.0-30.0); Prothrombin Time 11.3 sec (9.0-12.0)
[2021-03-01] MEDS ORDERED: ONDANSETRON 4 MG/2 ML VIAL IVP PRN (13:47)
[2021-03-01] MEDS ORDERED: NALOXONE 0.4 MG/ML 1 ML VIAL IV PRN (13:47)
[2021-03-01] MEDS ORDERED: NITROGLYCERIN SL TABS 0.4 MG TAB SUBLINGUAL PRN (14:09)
--- NOTE | 2021-03-01 17:44 | P.HPIM ---
History of Present Illness H&P Date: 03/01/21 Chief Complaint: Generalized weakness with associated new onset anemia 89-year-old male was admitted to the hospital with significant medical history of chest pain/angina, COPD, GERD/reflux/hypertension additional multiple comorbidities. Patient was sent to the emergency department with new onset anemia with associated generalized weakness and exertional dyspnea. Patient had extensive diagnostic workup in emergency department revealing iron deficiency anemia. Patient unsure if any gastrointestinal bleeding or additional sources of possible new onset anemia. Consultation with GI and hematology for additional workup of new onset anemia. 03/01/2021 Patient seen and examined at bedside. Patient resting comfortably in bed. Patient denies fever, chills chest pain, palpitations, abdominal pain, nausea or diarrhea at this time. Patient continues to endorse generalized fatigue and exertional shortness of breath. Vital signs and diagnostic testing review. Consultation with hematology and gastroenterology for new onset anemia with exertional dyspnea. Review of Systems Constitutional: Reports fatigue, Reports weakness, Reports weight loss Eyes: bilateral as per HPI Ears: bilateral: decreased hearing Cardiovascular: Reports decreased exercise tolerance, Reports dyspnea on exertion Respiratory: Reports dyspnea Musculoskeletal: Reports muscle weakness Neurological: Reports balance difficulties, Reports weakness Past Medical History Past Medical History: Chest Pain / Angina, COPD, GERD/Reflux, Hypertension Additional Past Medical History / Comment(s): cardiac cath with PTCA. History of Any Multi-Drug Resistant Organisms: None Reported Past Surgical History: Cholecystectomy, Heart Catheterization, Hernia Repair, Joint Replacement, Orthopedic Surgery Additional Past Surgical History / Comment(s): 08/04/14 Cardiac cath with PTCA. LEFT FEMUR ORIF, PARTIAL LT HIP REPLACEMENT, NIKO CAT SX Past Anesthesia/Blood Transfusion Reactions: No Reported Reaction Past Psychological History: No Psychological Hx Reported Additional Psychological History / Comment(s): Pt states he lives in a home with his daughter-Cecille. He states he is independent and performs his own ADL's. He still drives a car but not at nite. He uses a cane if he needs to walk quite a distance. He has a scooter that he can use for really long distances but rarely needs to. Smoking Status: Never smoker Past Alcohol Use History: Daily Additional Past Alcohol Use History / Comment(s): SMOKES A PIPE Past Drug Use History: None Reported - Past Family History Father Family Medical History: No Reported History Mother Family Medical History: No Reported History Medications and Allergies Home Medications and Allergies Comment(s): Medications and ALLERGIES reviewed Home Medications Medication Instructions Recorded Confirmed Type Multivitamin [Men's Multi-Vitamin] 1 tab PO HS 08/03/14 03/01/21 History Nitroglycerin Sl Tabs [Nitrostat] 0.4 mg SUBLINGUAL Q5M PRN #25 tab 08/05/14 03/01/21 Rx Atorvastatin Calcium [Lipitor] 40 mg PO DAILY 12/11/16 03/01/21 History Metoprolol Tartrate [Lopressor] 25 mg PO BID 08/12/17 03/01/21 History Omeprazole 20 mg PO DAILY 04/18/18 03/01/21 History Aspirin EC [Ecotrin Low Dose] 81 mg PO HS 03/28/19 03/01/21 History Docusate [Colace] 100 mg PO HS 07/28/20 03/01/21 History Donepezil [Aricept] 5 mg PO DAILY 07/28/20 03/01/21 History Memantine [Namenda] 10 mg PO BID 07/28/20 03/01/21 History Enalapril Maleate 2.5 mg PO DAILY 03/01/21 03/01/21 History Fluticasone/Salmeterol [Advair Hfa 1 puff INHALATION RT-BID 03/01/21 03/01/21 History 115-21 Mcg Inhaler] Levothyroxine Sodium [Synthroid] 75 mcg PO DAILY 03/01/21 03/01/21 History Allergies Allergy/AdvReac Type Severity Reaction Status Date / Time adhesive Allergy Rash/Hives-SEE Verified 03/01/21 11:18 COMMENT Physical Exam Vitals: Vital Signs Temp Pulse Resp BP Pulse Ox 03/01/21 15:35 56 L 16 121/75 97 03/01/21 13:17 55 L 16 109/95 96 03/01/21 11:15 98.0 F 55 L 16 87/51 97 Intake and Output 03/01/21 03/01/21 03/01/21 06:59 14:59 22:59 Other: Weight 72.575 kg 72.575 kg - Constitutional General appearance: cooperative, thin - EENT Eyes: EOMI, PERRLA ENT: hard of hearing Ears: bilateral: normal - Neck Neck: normal ROM Carotids: bilateral: upstroke normal Thyroid: bilateral: normal size - Respiratory Respiratory: bilateral: diminished (Anterior and posterior lung martínez) - Cardiovascular Heart rate: 84 Rhythm: regular Heart sounds: normal: S1, S2 dorsalis pedis Peripheral Pulses: bilateral: Normal radial pulse Peripheral Pulses: bilateral: Normal - Gastrointestinal General gastrointestinal: normal bowel sounds, soft - Integumentary Integumentary: normal turgor, pale - Musculoskeletal Musculoskeletal: generalized weakness - Psychiatric Psychiatric: A&O x's 3 Results CBC & Chem 7: 03/01/21 12:38 03/01/21 12:38 Labs: Abnormal Lab Results - Last 24 Hours (Table) 03/01/21 03/01/21 Range/Units 12:38 12:38 RBC 3.76 L (4.30-5.90) m/uL Hgb 8.5 L (13.0-17.5) gm/dL Hct 27.3 L (39.0-53.0) % MCV 72.8 L (80.0-100.0) fL MCH 22.6 L (25.0-35.0) pg RDW 18.5 H (11.5-15.5) % Chloride 110 H (98-107) mmol/L BUN 23 H (9-20) mg/dL Total Protein 6.0 L (6.3-8.2) g/dL Albumin 3.2 L (3.5-5.0) g/dL Thrombosis Risk Factor Assmnt - Choose All That Apply Any of the Below Risk Factors Present?: No Each Risk Factor Represents 3 Points: Age 75 years or older Thrombosis Risk Factor Assessment Total Risk Factor Score: 3 Thrombosis Risk Factor Assessment Level: Moderate Risk Assessment and Plan Assessment: New-onset anemia, possibly iron deficiency anemia COPD Hypertension GERD/reflux Hyperlipidemia Hypothyroidism Coronary artery disease with past cardiac catheterizations Orthopedic surgeries Memory impairment Full code Plan: New-onset anemia possibly iron deficiency anemia, possible need for iron transfusion. Consultation with gastroenterology for possible source of bleeding, consultation with hematology for recommendations for iron transfusion and outpatient iron replacement possibly COPD, continue breathing treatments as needed GERD/reflux continue home medications. Continue medical management Continue home medications GI prophylaxis ordered, continue to monitor vital signs and diagnostic testing Further recommendations come based on patient's clinical condition Discharge in 24-48 hours Time with Patient: Greater than 30
--- NOTE | 2021-03-01 18:18 | XR ---
EXAMINATION TYPE: XR chest 2V DATE OF EXAM: 03/01/2021 COMPARISON: 08/25/2020 HISTORY: Short of breath TECHNIQUE: FINDINGS: Heart appears enlarged. There is large hiatal hernia. Lungs are clear of consolidation. The re is no heart failure. There is no definite pleural effusion. Bony thorax is intact. IMPRESSION: Large hiatal hernia. No acute lung disease. No change compared to old exam.
[2021-03-01] MEDS: IPRATROPIUM-ALBUTEROL 3 ML NEB INHALATION SCH (20:21)
[2021-03-01] MEDS: SYMBICORT 160-4.5 MCG INHALER INHALATION SCH (20:21)
[2021-03-01] MEDS: METOPROLOL TARTRATE 25 MG TAB PO SCH (20:22)
[2021-03-01] MEDS: MEMANTINE 10 MG TAB PO SCH (20:22)
[2021-03-01] MEDS: DOCUSATE 100 MG CAP PO SCH (20:22)
[2021-03-01] MEDS: MULTIVITAMINS, THERA 1 EACH TAB PO SCH (20:22)
[2021-03-01] MEDS: LACTATED RINGERS 1,000 ML IV SCH (20:22)
[2021-03-01 22:37] LABS: Reticulocyte % 1.14 % (0.10-1.80)
[2021-03-02 00:40] LABS: % Iron Saturation 6.59 (15.00-50.00); Ferritin 6.9 ng/mL (22.0-322.0)
[2021-03-02 01:11] LABS: Protein, Total 5.9 g/dL (6.2-8.2)
[2021-03-02 02:58] LABS: Anisocytosis Slight; Basophils % (A) 1 %; Eosinophils # (A) 0.2 k/uL (0-0.7); Eosinophils % (A) 4 %; HCT 24.4 % (39.0-53.0); HGB 7.7 gm/dL (13.0-17.5); Hypochromasia Marked; Lymphocytes # (A) 1.1 k/uL (1.0-4.8); Lymphocytes % (A) 19 %; MCH 22.8 pg (25.0-35.0); MCHC 31.6 g/dL (31.0-37.0); MCV 72.1 fL (80.0-100.0); Mean Platelet Volume 7.4; Microcytosis Moderate; Monocytes # (A) 0.6 k/uL (0-1.0); Monocytes % (A) 10 %; Neutrophils # (A) 3.7 k/uL (1.3-7.7); Neutrophils % (A) 63 %; Platelet Count 169 k/uL (150-450); Poikilocytosis Slight; RBC 3.39 m/uL (4.30-5.90); RDW 18.4 % (11.5-15.5); WBC 5.9 k/uL (3.8-10.6)
[2021-03-02] MEDS: LEVOTHYROXINE 75 MCG TAB PO SCH (05:42)
[2021-03-02 06:52] LABS: Anisocytosis Slight; Basophils % (A) 0 %; Eosinophils # (A) 0.2 k/uL (0-0.7); Eosinophils % (A) 3 %; HCT 25.9 % (39.0-53.0); Hypochromasia Marked; Lymphocytes # (A) 1.1 k/uL (1.0-4.8); Lymphocytes % (A) 17 %; MCH 22.3 pg (25.0-35.0); MCV 71.8 fL (80.0-100.0); Mean Platelet Volume 6.9; Microcytosis Marked; Monocytes # (A) 0.5 k/uL (0-1.0); Monocytes % (A) 8 %; Neutrophils # (A) 4.4 k/uL (1.3-7.7); Neutrophils % (A) 69 %; Platelet Count 155 k/uL (150-450); Poikilocytosis Slight; RBC 3.61 m/uL (4.30-5.90); RDW 18.2 % (11.5-15.5); WBC 6.4 k/uL (3.8-10.6)
[2021-03-02 07:24] LABS: ALT 14 U/L (4-49); AST 28 U/L (17-59); African American GFR (CKD) 74 (>60 ml/min/1.73 sqM); Albumin 2.8 g/dL (3.5-5.0); Alkaline Phosphatase 79 U/L (38-126); Anion Gap 6 mmol/L; Blood Urea Nitrogen 20 mg/dL (9-20); Calcium 8.2 mg/dL (8.4-10.2); Carbon Dioxide 25 mmol/L (22-30); Chloride 106 mmol/L (98-107); Globulin 2.7 g/dL; Glucose 90 mg/dL (74-99); Non-African American GFR(CKD) 64 (>60 ml/min/1.73 sqM); Potassium 4.4 mmol/L (3.5-5.1); Sodium 137 mmol/L (137-145); Total Bilirubin 0.3 mg/dL (0.2-1.3); Total Protein 5.5 g/dL (6.3-8.2)
[2021-03-02] MEDS: LACTATED RINGERS 1,000 ML IV SCH ×2 (08:11→20:18)
[2021-03-02] MEDS: PANTOPRAZOLE 40 MG/10 ML VIAL IV SCH (08:12)
[2021-03-02] MEDS: ATORVASTATIN 40 MG TAB PO SCH (08:12)
[2021-03-02] MEDS: DONEPEZIL 5 MG TAB PO SCH (08:13)
[2021-03-02] MEDS: lisinopriL 5 MG TAB PO SCH (08:13)
[2021-03-02] MEDS: METOPROLOL TARTRATE 25 MG TAB PO SCH ×2 (08:13→20:19)
[2021-03-02] MEDS: MEMANTINE 10 MG TAB PO SCH ×2 (08:13→20:19)
[2021-03-02] MEDS ORDERED: NON FORMULARY DRUG (Omeprazole [Omeprazole] 20 MG Tablet.Dr) PO SCH (09:00)
[2021-03-02] MEDS: IPRATROPIUM-ALBUTEROL 3 ML NEB INHALATION SCH ×4 (09:02→19:25)
[2021-03-02] MEDS: SODIUM FERRIC GLUCONAT-SUCROSE 125 MG in SODIUM CHLORIDE 0.9% 100 ML IVPB SCH (09:16)
[2021-03-02] MEDS: SYMBICORT 160-4.5 MCG INHALER INHALATION SCH ×2 (11:03→19:25)
--- NOTE | 2021-03-02 11:49 | P.PN ---
Subjective Progress Note Date: 03/02/21 Principal diagnosis: anemia In f/u pt feels pretty good, anxious to get home. No SOB, bleeding to report Objective - Vital Signs Vital signs: Vital Signs Temp 98.4 F 03/02/21 08:16 Pulse 62 03/02/21 11:19 Resp 18 03/02/21 08:16 BP 111/66 03/02/21 08:16 Pulse Ox 92 L 03/02/21 08:16 Intake & Output 03/01/21 03/02/21 03/02/21 18:59 06:59 18:59 Intake Total 240 Balance 240 Weight 72.575 kg Intake: Oral 240 Other: Voiding Method Toilet # Voids 1 - Constitutional General appearance: Present: average body habitus, cooperative, no acute distress - EENT Eyes: Present: anicteric sclerae, EOMI ENT: Present: hard of hearing - Respiratory Respiratory: bilateral: CTA - Cardiovascular Heart sounds: normal: S1, S2 - Gastrointestinal General gastrointestinal: Present: normal bowel sounds, soft - Neurologic Neurologic: Present: CNII-XII intact - Musculoskeletal Musculoskeletal: Present: generalized weakness, strength equal bilaterally - Labs CBC & Chem 7: 03/02/21 06:29 03/02/21 06:29 Labs: Abnormal Lab Results - Last 24 Hours (Table) 03/01/21 03/01/21 03/01/21 Range/Units 12:38 12:38 12:38 RBC 3.76 L (4.30-5.90) m/uL Hgb 8.5 L (13.0-17.5) gm/dL Hct 27.3 L (39.0-53.0) % MCV 72.8 L (80.0-100.0) fL MCH 22.6 L (25.0-35.0) pg RDW 18.5 H (11.5-15.5) % Chloride 110 H (98-107) mmol/L BUN 23 H (9-20) mg/dL Calcium (8.4-10.2) mg/dL Iron (65-175) ug/dL % Saturation (15.00-50.00) Ferritin (22.0-322.0) ng/mL Total Protein 6.0 L (6.3-8.2) g/dL Total Protein (PEP) 5.9 L (6.2-8.2) g/dL Albumin 3.2 L (3.5-5.0) g/dL 03/01/21 03/02/21 03/02/21 Range/Units 16:39 01:03 06:29 RBC 3.39 L (4.30-5.90) m/uL Hgb 7.7 L (13.0-17.5) gm/dL Hct 24.4 L (39.0-53.0) % MCV 72.1 L (80.0-100.0) fL MCH 22.8 L (25.0-35.0) pg RDW 18.4 H (11.5-15.5) % Chloride (98-107) mmol/L BUN (9-20) mg/dL Calcium 8.2 L (8.4-10.2) mg/dL Iron 23 L (65-175) ug/dL % Saturation 6.59 L (15.00-50.00) Ferritin 6.9 L (22.0-322.0) ng/mL Total Protein 5.5 L (6.3-8.2) g/dL Total Protein (PEP) (6.2-8.2) g/dL Albumin 2.8 L (3.5-5.0) g/dL 03/02/21 Range/Units 06:29 RBC 3.61 L (4.30-5.90) m/uL Hgb 8.0 L (13.0-17.5) gm/dL Hct 25.9 L (39.0-53.0) % MCV 71.8 L (80.0-100.0) fL MCH 22.3 L (25.0-35.0) pg RDW 18.2 H (11.5-15.5) % Chloride (98-107) mmol/L BUN (9-20) mg/dL Calcium (8.4-10.2) mg/dL Iron (65-175) ug/dL % Saturation (15.00-50.00) Ferritin (22.0-322.0) ng/mL Total Protein (6.3-8.2) g/dL Total Protein (PEP) (6.2-8.2) g/dL Albumin (3.5-5.0) g/dL Assessment and Plan (1) Microcytic hypochromic anemia Narrative/Plan: Iron deficiency noted, IV iron supplement ordered GI consult Additional labs to rule out other deficiencies, paraproteinemia Current Visit: Yes Status: Acute Priority: Medium Code(s): D50.9 - IRON DEFICIENCY ANEMIA, UNSPECIFIED SNOMED Code(s): 18881711
--- NOTE | 2021-03-02 12:19 | CONS ---
CONSULTATION DATE OF SERVICE: 03/02/2021. REASON FOR CONSULTATION: Microcytic anemia. HISTORY OF PRESENT ILLNESS: The patient is an 89-year-old pleasant white male with history of COPD, hypertension, gastroesophageal reflux disease, admitted to the hospital with progressive fatigue for the last few weeks duration. He had routine labs done on outpatient basis and was noted to have anemia with a hemoglobin 5. He was advised to go to the emergency room and subsequently admitted to the hospital for further evaluation. Patient denies any abdominal pain reports no nausea, vomiting. No rectal bleeding or melena. I did have a discussion with the patient's daughter who denies any new symptoms other than fatigue. He was also evaluated by Dr. Nolasco yesterday. His last EGD and colonoscopy were several years ago. PAST MEDICAL HISTORY: Significant for gastroesophageal reflux disease, hypertension, COPD. PAST SURGICAL HISTORY: Cardiac catheterization with stent placement, cholecystectomy, hernia repair, joint replacement. MEDICATIONS: At home, multivitamin, nitroglycerin, Lipitor metoprolol, Ecotrin, Colace, Aricept, Namenda, and aspirin Synthroid and anemia. ALLERGIES: Adhesive tape. SOCIAL HISTORY: No smoking no alcohol use. FAMILY HISTORY: Unremarkable. REVIEW OF SYSTEMS: CARDIOPULMONARY: No chest pain or shortness of breath. : No dysuria, no hematuria musculoskeletal unremarkable skin unremarkable endocrine unremarkable. PSYCHIATRIC: Unremarkable. NEUROLOGY: Unremarkable other than severe deafness. CONSTITUTIONAL: No recent weight loss. No fever, chills, night sweats. HEMATOLOGY: Microcytic anemia. PHYSICAL EXAMINATION: Blood pressure is 111/60, pulse rate 53 temperature 98.4. HEENT examination unremarkable pink sclerae anicteric oral cavity no lesions. NECK: No JVD. No lymph node enlargement. CHEST: Clear auscultation. HEART: Regular rate and rhythm. ABDOMEN: Soft, it was nontender, nondistended. Bowel sounds are positive no organomegaly. EXTREMITIES: No pedal edema. NEURO: She is alert and oriented x3. No focal deficits. LABS: WBC 6.5, hemoglobin 8.5, MCV 72, platelets normal. Iron is 23, TIBC 347, iron saturation 6.5%, ferritin is 6.9. IMPRESSION: 1. Iron deficiency anemia most likely secondary to occult GI blood loss. The patient denies any active bleeding. No GI symptoms. Presently receiving IV iron infusions. Last EGD and colonoscopy was several years ago. 2. History of hypertension. 3. Severe hearing loss. 4. Mild dementia. RECOMMENDATIONS: Agree with iron infusions. I had a lengthy discussion with the patient's daughter regarding any endoscopy workup at this advanced age. At this time we decided not to proceed with any GI workup. Instead, he will continue with iron infusions as well as oral iron and monitor CBC on outpatient basis and if he continues to have persistent anemia in the future, we will consider endoscopy workup. The patient's daughter is agreeable with this plan. At this time, we will continue with symptomatic and supportive care. Monitor CBC daily. Thank you for this consultation. MMULICESL / IJN: [id number] /
[2021-03-02] MEDS: DOCUSATE 100 MG CAP PO SCH (20:19)
[2021-03-02] MEDS: MULTIVITAMINS, THERA 1 EACH TAB PO SCH (20:19)
[2021-03-02] MEDS ORDERED: CYANOCOBALAMIN 1,000 MCG/ML 1 ML VIAL IM ONE (20:46)
--- NOTE | 2021-03-02 20:50 | P.PN ---
Subjective This is a pleasant 89 years old male with multiple medical problems . He is patient of Dr. Guevara Patient was sent from [facility]. Guevara for his iron transfusion. On admission his hemoglobin was 8.5 and today even lower as 8. His hemoglobin at baseline was 11.2 earlier this year on 08/2020. And is very hard here and however sitting in chair comfortable, no complaint. He is very hard here and he Understands when he talked loud to him. Any chest pain or dyspnea. No pain. No change in urine or bowel habits. No urinary complaints. Also patient with no fever and vitals are stable. Labs other than the low hemoglobin are unremarkable. When iron deficiency anemia and also B12 was low at 308. Large hiatal hernia with no acute process. Already started on IV iron and also to start vitamin B12 replacement Hematology and GI service were already consulted Objective - Vital Signs Vital signs: Vital Signs Temp 97.5 F L 03/02/21 15:00 Pulse 69 03/02/21 19:35 Resp 18 03/02/21 15:00 BP 121/73 03/02/21 15:00 Pulse Ox 93 L 03/02/21 15:00 Intake & Output 03/02/21 03/02/21 03/03/21 06:59 18:59 06:59 Other: Voiding Method Toilet # Voids 1 2 # Bowel Movements 1 - Exam -GENERAL: The patient is alert and oriented x3, not in any acute distress. Well developed, well nourished. Very hard hearing HEENT: Pupils are round and equally reacting to light. EOMI. No scleral icterus. No conjunctival pallor. Normocephalic, atraumatic. No pharyngeal erythema. No thyromegaly. CARDIOVASCULAR: S1 and S2 present. No murmurs, rubs, or gallops. PULMONARY: Chest is clear to auscultation, no wheezing or crackles. ABDOMEN: Soft, nontender, nondistended, normoactive bowel sounds. No palpable organomegaly. MUSCULOSKELETAL: No joint swelling or deformity. EXTREMITIES: No cyanosis, clubbing, or pedal edema. NEUROLOGICAL: Gross neurological examination did not reveal any focal deficits. SKIN: No rashes. no petechiae. - Labs CBC & Chem 7: 03/02/21 06:29 03/02/21 06:29 Labs: Abnormal Lab Results - Last 24 Hours (Table) 03/01/21 03/01/21 03/02/21 Range/Units 12:38 16:39 01:03 RBC 3.39 L (4.30-5.90) m/uL Hgb 7.7 L (13.0-17.5) gm/dL Hct 24.4 L (39.0-53.0) % MCV 72.1 L (80.0-100.0) fL MCH 22.8 L (25.0-35.0) pg RDW 18.4 H (11.5-15.5) % Calcium (8.4-10.2) mg/dL Iron 23 L (65-175) ug/dL % Saturation 6.59 L (15.00-50.00) Ferritin 6.9 L (22.0-322.0) ng/mL Total Protein (6.3-8.2) g/dL Total Protein (PEP) 5.9 L (6.2-8.2) g/dL Albumin (3.5-5.0) g/dL 03/02/21 03/02/21 Range/Units 06:29 06:29 RBC 3.61 L (4.30-5.90) m/uL Hgb 8.0 L (13.0-17.5) gm/dL Hct 25.9 L (39.0-53.0) % MCV 71.8 L (80.0-100.0) fL MCH 22.3 L (25.0-35.0) pg RDW 18.2 H (11.5-15.5) % Calcium 8.2 L (8.4-10.2) mg/dL Iron (65-175) ug/dL % Saturation (15.00-50.00) Ferritin (22.0-322.0) ng/mL Total Protein 5.5 L (6.3-8.2) g/dL Total Protein (PEP) (6.2-8.2) g/dL Albumin 2.8 L (3.5-5.0) g/dL Assessment and Plan Assessment: Acute iron deficiency anemia, complicated by a B12 deficiency Vitamin B12 deficiency Hard of hearing Plan: This is a pleasant 89 years old male who presents with anemia Replacing iron and vitamin B12 GI and GI consult Labs and medication were reviewed.. Continue same treatment. Continue with symptomatic treatment. Resume home medication. Monitor lytes and vitals. DVT and GI prophylaxis. Further recommendationsas per clinical course of the patient DVT prophylaxis: Subcutaneous heparin GI Prophylaxis: Pepcid PT/OT: Pending Prognosis is guarded
[2021-03-03] MEDS: LEVOTHYROXINE 75 MCG TAB PO SCH (05:39)
[2021-03-03] MEDS: METOPROLOL TARTRATE 25 MG TAB PO SCH ×2 (08:00→19:37)
[2021-03-03] MEDS: PANTOPRAZOLE 40 MG/10 ML VIAL IV SCH (08:00)
[2021-03-03] MEDS: ATORVASTATIN 40 MG TAB PO SCH (08:00)
[2021-03-03] MEDS: CYANOCOBALAMIN 500 MCG TAB PO SCH (08:00)
[2021-03-03] MEDS: MEMANTINE 10 MG TAB PO SCH ×2 (08:00→19:37)
[2021-03-03] MEDS: lisinopriL 5 MG TAB PO SCH (08:01)
[2021-03-03] MEDS: IPRATROPIUM-ALBUTEROL 3 ML NEB INHALATION SCH ×4 (08:12→20:00)
[2021-03-03] MEDS: SYMBICORT 160-4.5 MCG INHALER INHALATION SCH ×2 (08:12→20:00)
[2021-03-03] MEDS: DONEPEZIL 5 MG TAB PO SCH (09:02)
[2021-03-03] MEDS: SODIUM FERRIC GLUCONAT-SUCROSE 125 MG in SODIUM CHLORIDE 0.9% 100 ML IVPB SCH (09:02)
--- NOTE | 2021-03-03 10:31 | P.CONS ---
History of Present Illness - Reason for Consult Consult date: 03/01/21 Microcytic anemia - History of Present Illness The patient is an 89-year-old white male with multiple medical problems. The patient was evaluated in his PCPs office because of complains of increasing fatigue, and shortness of breath with exertion. Apparently symptoms had been progressive over the last few weeks at least. His hemoglobin was found to be in the 8 range, with low MCV. He was therefore sent in to the emergency room. In the ER hemoglobin was 8.5 with MCV in the 72 range. CBC in the EMR from 08/26 showed hemoglobin in the high 11 range. Patient was therefore admitted for further management The patient is hard of hearing, and it was difficult to obtain an accurate history from him. Therefore most of the history was obtained from the EMR. Was however able to be determined that there was no obvious bleeding noted by the patient. He does take an aspirin at home but no other blood thinners. We were unable to determine if the patient had previously had a colonoscopy or EGD. Chest x-ray did show a large hiatal hernia. Review of Systems Constitutional: Reports weakness Eyes: denies blurred vision, denies pain Ears: bilateral: decreased hearing Ears, nose, mouth and throat: Denies headache, Denies sore throat Cardiovascular: Reports dyspnea on exertion Respiratory: Reports dyspnea Gastrointestinal: Denies abdominal pain, Denies diarrhea, Denies nausea, Denies vomiting Genitourinary: Reports urinary frequency Musculoskeletal: Reports muscle weakness Integumentary: Denies pruritus, Denies rash Neurological: Reports as per HPI, Reports weakness Psychiatric: Denies anxiety, Denies depression Endocrine: Reports fatigue Hematologic/Lymphatic: Reports as per HPI Past Medical History Past Medical History: Chest Pain / Angina, COPD, GERD/Reflux, Hypertension Additional Past Medical History / Comment(s): cardiac cath with PTCA. History of Any Multi-Drug Resistant Organisms: None Reported Past Surgical History: Cholecystectomy, Heart Catheterization, Hernia Repair, Joint Replacement, Orthopedic Surgery Additional Past Surgical History / Comment(s): 08/04/14 Cardiac cath with PTCA. LEFT FEMUR ORIF, PARTIAL LT HIP REPLACEMENT, NIKO CAT SX Past Anesthesia/Blood Transfusion Reactions: No Reported Reaction Past Psychological History: No Psychological Hx Reported Additional Psychological History / Comment(s): Pt states he lives in a home with his daughter-Cecille. He states he is independent and performs his own ADL's. He still drives a car but not at nite. He uses a cane if he needs to walk quite a distance. He has a scooter that he can use for really long distances but rarely needs to. Smoking Status: Never smoker Past Alcohol Use History: Daily Additional Past Alcohol Use History / Comment(s): SMOKES A PIPE Past Drug Use History: None Reported - Past Family History Father Family Medical History: No Reported History Mother Family Medical History: No Reported History Medications and Allergies Home Medications Medication Instructions Recorded Confirmed Type Multivitamin [Men's Multi-Vitamin] 1 tab PO HS 08/03/14 03/01/21 History Nitroglycerin Sl Tabs [Nitrostat] 0.4 mg SUBLINGUAL Q5M PRN #25 tab 08/05/14 03/01/21 Rx Atorvastatin Calcium [Lipitor] 40 mg PO DAILY 12/11/16 03/01/21 History Metoprolol Tartrate [Lopressor] 25 mg PO BID 08/12/17 03/01/21 History Omeprazole 20 mg PO DAILY 04/18/18 03/01/21 History Aspirin EC [Ecotrin Low Dose] 81 mg PO HS 03/28/19 03/01/21 History Docusate [Colace] 100 mg PO HS 07/28/20 03/01/21 History Donepezil [Aricept] 5 mg PO DAILY 07/28/20 03/01/21 History Memantine [Namenda] 10 mg PO BID 07/28/20 03/01/21 History Enalapril Maleate 2.5 mg PO DAILY 03/01/21 03/01/21 History Fluticasone/Salmeterol [Advair Hfa 1 puff INHALATION RT-BID 03/01/21 03/01/21 History 115-21 Mcg Inhaler] Levothyroxine Sodium [Synthroid] 75 mcg PO DAILY 03/01/21 03/01/21 History Allergies Allergy/AdvReac Type Severity Reaction Status Date / Time adhesive Allergy Rash/Hives-SEE Verified 03/01/21 11:18 COMMENT Physical Exam Vitals: Vital Signs Temp Pulse Pulse Resp BP Pulse Ox 03/03/21 08:21 65 03/03/21 08:12 63 03/03/21 08:11 97.3 F L 78 16 128/72 92 L 03/03/21 01:30 98.5 F 72 16 120/75 90 L 03/03/21 01:25 17 03/02/21 20:00 16 03/02/21 19:35 69 03/02/21 19:26 65 03/02/21 19:21 98.0 F 68 16 109/67 94 L 03/02/21 15:47 65 03/02/21 15:38 64 03/02/21 15:00 97.5 F L 56 L 18 121/73 93 L 03/02/21 11:19 62 03/02/21 11:03 59 L Intake and Output 03/02/21 03/03/21 03/03/21 22:59 06:59 14:59 Other: Voiding Method Toilet Toilet # Voids 2 1 - Constitutional General appearance: no acute distress - EENT Eyes: EOMI, PERRLA ENT: hard of hearing, normal oropharynx - Neck Neck: lymphadenopathy Thyroid: bilateral: normal size - Respiratory Respiratory: bilateral: CTA - Cardiovascular Rhythm: regular Heart sounds: normal: S1, S2 - Gastrointestinal General gastrointestinal: normal bowel sounds, soft - Integumentary Integumentary: normal - Neurologic Neurologic: CNII-XII intact (Other than decreased hearing) - Musculoskeletal Musculoskeletal: generalized weakness, strength equal bilaterally - Psychiatric Psychiatric: A&O x's 3 Results CBC & Chem 7: 03/02/21 06:29 03/02/21 06:29 Chest x-ray: report reviewed Assessment and Plan (1) Microcytic hypochromic anemia Narrative/Plan: The patient is presenting with a significant change in hemoglobin compared to the beginning of this year. He has associated significant microcytosis and symptoms. - At this time the main differential diagnosis would be iron deficiency anemia due to blood loss. Since no obvious bleeding has been noted, occult GI blood loss is felt to be most likely. - Iron studies as well as workup for other causes of anemia will be ordered. - GI consult has already been placed. If iron deficiency is confirmed, then the patient should be evaluated for endoscopic workup - Hold aspirin - Continue to monitor and transfuse for hemoglobin less than 7 Current Visit: Yes Status: Acute Priority: Medium Code(s): D50.9 - IRON DEFICIENCY ANEMIA, UNSPECIFIED SNOMED Code(s): 45241058 Plan: Defer to the admitting service for management of his other medical problems
--- NOTE | 2021-03-03 10:50 | PN ---
PROGRESS NOTE DATE OF DICTATION: 03/03/2021 The patient is an 89-year-old pleasant white male admitted to the hospital with severe symptomatic anemia and hemoglobin of 8 g/dL. He is currently receiving IV infusions. He is not complaining of any symptoms. As per the nursing staff, no bleeding noted. PHYSICAL EXAMINATION: He appears comfortable. No apparent distress. VITAL SIGNS: Vital signs are stable. Blood pressure is 122/86, pulse rate 92 per minute and afebrile. HEENT EXAMINATION: Unremarkable. Conjunctivae pink. Sclerae anicteric. Oral cavity no lesions. NECK: No JVD. No lymph node enlargement. CHEST: Clear to auscultation. HEART: Regular rate and rhythm. ABDOMEN: Soft. Bowel sounds are positive. No organomegaly. EXTREMITIES: No pedal edema. NEURO: Alert and oriented x3. No focal deficits. LABS: Labs done from today: WBC 5.6. Hemoglobin is 8 and platelets are normal. Basic metabolic panel is within normal limits. IMPRESSION: 1. Iron deficiency anemia secondary to occult gastrointestinal blood loss. Clinically no evidence of active bleeding. Hemoglobin currently remains stable at 8 g/dL, status post iron infusion yesterday, and he is receiving a second bag today. 2. Mild dementia. 3. History of hypertension and hypothyroidism. 4. History of gastroesophageal reflux disease. RECOMMENDATIONS: 1. Agree with iron infusions. 2. Monitor CBC daily. 3. If hemoglobin remains stable, he can be discharged home, and monitor CBC on a monthly basis. I had a lengthy discussion with the patient's daughter yesterday. At this time we decided to hold off on any endoscopic intervention and will consider this on an outpatient basis if he continues to have persistent anemia. Thank you for this consultation. We will sign off at this time. Please call us if needed. MMODL / IJN: [id number] /
[2021-03-03] MEDS: LACTATED RINGERS 1,000 ML IV SCH ×2 (15:28→19:36)
[2021-03-03] MEDS: DOCUSATE 100 MG CAP PO SCH (19:37)
[2021-03-03] MEDS: MULTIVITAMINS, THERA 1 EACH TAB PO SCH (19:37)
[2021-03-04] MEDS: LEVOTHYROXINE 75 MCG TAB PO SCH (05:42)
[2021-03-04] MEDS: DONEPEZIL 5 MG TAB PO SCH (07:50)
[2021-03-04] MEDS: MEMANTINE 10 MG TAB PO SCH (07:50)
[2021-03-04] MEDS: lisinopriL 5 MG TAB PO SCH (07:50)
[2021-03-04] MEDS: METOPROLOL TARTRATE 25 MG TAB PO SCH (07:50)
[2021-03-04] MEDS: ATORVASTATIN 40 MG TAB PO SCH (07:50)
[2021-03-04] MEDS: CYANOCOBALAMIN 500 MCG TAB PO SCH (07:50)
[2021-03-04] MEDS: PANTOPRAZOLE 40 MG/10 ML VIAL IV SCH (07:51)
[2021-03-04 07:56] VITALS: BP 120/71; TEMP 98
[2021-03-04] MEDS: SODIUM FERRIC GLUCONAT-SUCROSE 125 MG in SODIUM CHLORIDE 0.9% 100 ML IVPB SCH (08:34)
[2021-03-04] MEDS: IPRATROPIUM-ALBUTEROL 3 ML NEB INHALATION SCH ×2 (09:30→10:58)
--- NOTE | 2021-03-04 09:45 | P.PN ---
Subjective This is a pleasant 89 years old male with multiple medical problems . He is patient of Dr. Guevara Patient was sent from his [facility] office Dr. Guevara for his iron transfusion. On admission his hemoglobin was 8.5 and today even lower as 8. His hemoglobin at baseline was 11.2 earlier this year on 08/2020. And is very hard here and however sitting in chair comfortable, no complaint. He is very hard here and he Understands when he talked loud to him. Any chest pain or dyspnea. No pain. No change in urine or bowel habits. No urinary complaints. Also patient with no fever and vitals are stable. Labs other than the low hemoglobin are unremarkable. When iron deficiency anemia and also B12 was low at 308. Large hiatal hernia with no acute process. Already started on IV iron and also to start vitamin B12 replacement Hematology and GI service were already consulted 03/03/2021 Patient is eating his lunch, sitting in chairs with no symptoms. No chest pain or dyspnea. No dizziness. No abdominal pain. No fever. He is hemodynamically stable. No labs from today, repeat hemoglobin tomorrow GI and hematology service on the case Objective - Vital Signs Vital signs: Vital Signs Temp 97.3 F L 03/03/21 08:11 Pulse 65 03/03/21 08:21 Resp 16 03/03/21 08:11 BP 128/72 03/03/21 08:11 Pulse Ox 92 L 03/03/21 08:11 Intake & Output 03/02/21 03/03/21 03/03/21 18:59 06:59 18:59 Other: Voiding Method Toilet # Voids 2 1 # Bowel Movements 1 - Exam -GENERAL: The patient is alert and oriented x3, not in any acute distress. Well developed, well nourished. Very hard hearing HEENT: Pupils are round and equally reacting to light. EOMI. No scleral icterus. No conjunctival pallor. Normocephalic, atraumatic. No pharyngeal erythema. No thyromegaly. CARDIOVASCULAR: S1 and S2 present. No murmurs, rubs, or gallops. PULMONARY: Chest is clear to auscultation, no wheezing or crackles. ABDOMEN: Soft, nontender, nondistended, normoactive bowel sounds. No palpable organomegaly. MUSCULOSKELETAL: No joint swelling or deformity. EXTREMITIES: No cyanosis, clubbing, or pedal edema. NEUROLOGICAL: Gross neurological examination did not reveal any focal deficits. SKIN: No rashes. no petechiae. - Labs CBC & Chem 7: 03/02/21 06:29 03/02/21 06:29 Assessment and Plan Assessment: Acute iron deficiency anemia, complicated by a B12 deficiency Vitamin B12 deficiency Hard of hearing Plan: This is a pleasant 89 years old male who presents with anemia Replacing iron and vitamin B12 GI and hematology consult Labs and medication were reviewed.. Continue same treatment. Continue with symptomatic treatment. Resume home medication. Monitor lytes and vitals. DVT and GI prophylaxis. Further recommendations as per clinical course of the patient DVT prophylaxis: Subcutaneous heparin GI Prophylaxis: Pepcid PT/OT: Pending Prognosis is guarded
[2021-03-04 10:14] LABS: Anisocytosis Slight; Basophils % (A) 1 %; Eosinophils # (A) 0.3 k/uL (0-0.7); Eosinophils % (A) 4 %; HCT 26.7 % (39.0-53.0); HGB 8.1 gm/dL (13.0-17.5); Hypochromasia Marked; Lymphocytes # (A) 0.9 k/uL (1.0-4.8); Lymphocytes % (A) 12 %; MCH 22.2 pg (25.0-35.0); MCHC 30.5 g/dL (31.0-37.0); MCV 72.9 fL (80.0-100.0); Mean Platelet Volume 8.8; Microcytosis Moderate; Monocytes # (A) 0.6 k/uL (0-1.0); Monocytes % (A) 9 %; Neutrophils # (A) 5.3 k/uL (1.3-7.7); Neutrophils % (A) 73 %; Platelet Count 158 k/uL (150-450); Poikilocytosis Slight; RBC 3.66 m/uL (4.30-5.90); WBC 7.3 k/uL (3.8-10.6)
[2021-03-04] MEDS: SYMBICORT 160-4.5 MCG INHALER INHALATION SCH (10:59)
[2021-03-04 11:13] VITALS: PULSE 68; RESP 16
--- NOTE | 2021-03-04 12:59 | P.PN ---
Subjective Progress Note Date: 03/04/21 Principal diagnosis: anemia In f/u pt feels pretty good, ambulating independently, denies any SOB or bleeding. Objective - Vital Signs Vital signs: Vital Signs Temp 98.0 F 03/04/21 07:00 Pulse 65 03/04/21 07:00 Resp 16 03/04/21 07:00 BP 120/71 03/04/21 07:00 Pulse Ox 95 03/04/21 07:00 Intake & Output 03/03/21 03/04/21 03/04/21 18:59 06:59 18:59 Intake Total 118 Balance 118 Intake: Oral 118 Other: Voiding Method Toilet # Voids 2 2 - Constitutional General appearance: Present: average body habitus, cooperative, no acute distress - EENT Eyes: Present: anicteric sclerae, EOMI ENT: Present: hard of hearing - Respiratory Respiratory: bilateral: CTA - Cardiovascular Heart sounds: normal: S1, S2 - Peripheral edema leg Peripheral Edema: bilateral: None - Neurologic Neurologic: Present: CNII-XII intact - Musculoskeletal Musculoskeletal: Present: strength equal bilaterally - Psychiatric Psychiatric: Present: A&O x's 3, appropriate affect, intact judgment & insight - Labs CBC & Chem 7: 03/04/21 10:02 03/02/21 06:29 Labs: Abnormal Lab Results - Last 24 Hours (Table) 03/04/21 Range/Units 10:02 RBC 3.66 L (4.30-5.90) m/uL Hgb 8.1 L (13.0-17.5) gm/dL Hct 26.7 L (39.0-53.0) % MCV 72.9 L (80.0-100.0) fL MCH 22.2 L (25.0-35.0) pg MCHC 30.5 L (31.0-37.0) g/dL RDW 19.0 H (11.5-15.5) % Lymphocytes # 0.9 L (1.0-4.8) k/uL Assessment and Plan (1) Microcytic hypochromic anemia Narrative/Plan: Iron deficiency noted, IV iron supplement x 3 doses given. Hgb stable today GI-per pt wishes, no endoscopy planned at this time. Going to see if IV iron improves Hgb and keeps stable Additional labs to rule out other deficiencies, paraproteinemia-still pending results. F/U with Hematology for CBC and iron study monitoring. Referral back to GI as appropriate Status: Acute Priority: Medium Code(s): D50.9 - IRON DEFICIENCY ANEMIA, UNSPECIFIED SNOMED Code(s): 14473412
[2021-03-04 13:23] LABS: Albumin 3.18 g/dL (3.80-4.90); Gamma Globulin 0.94 g/dL (0.70-1.50)
--- NOTE | 2021-03-04 19:16 | DS ---
DISCHARGE SUMMARY DATE OF SERVICE: 03/04/2021 FINAL DIAGNOSES: 1. Anemia, possibly gastric occult blood-loss anemia, iron deficient anemia. 2. B12 deficiency. 3. Hard of hearing. 4. Chronic obstructive pulmonary disease. 5. Gastroesophageal reflux disease. 6. Hypertension. 7. Cardiac cath with PTCA. 8. FULL CODE. DISCHARGE DISPOSITION: The patient will be discharged in stable condition with guarded prognosis. HISTORY OF PRESENT ILLNESS: This 89-year-old gentleman with the past medical history of multiple medical problems being followed by Dr. Bowen Guevara in the outpatient setting was admitted with anemia. Hemoglobin is 8.1 at this time. The patient had features of iron deficiency anemia. Discussion held with the family and at this time Dr. Ojeda from Gastroenterology recommended continue the current conservative line of management and iron infusions and defer scopes at this time, which the family agreed. On exam, vital signs stable. Cardiovascular: S1/S2. Abdomen soft. Nervous system: No focal deficits. The patient will be discharged in stable condition with guarded prognosis. Hemoglobin is 8.1 at this time. DISCHARGE DIET: Cardiac diet. FOLLOWUP: Follow up with Dr. Bowen Guevara in 2-3 days, follow up with Dr. Ojeda as recommended. MEDICATIONS: 1. Hold aspirin for now and re-evaluate in the outpatient setting, restart once the hemoglobin is stable. 2. Advair 1 puff b.i.d. 3. Aricept 5 mg p.o. daily. 4. Colace 100 mg q.h.s. 5. Enalapril 2.5 mg daily. 6. Lipitor 40 mg daily. 7. Lopressor 25 mg b.i.d. 8. Multivitamins one p.o. daily. 9. Namenda 10 mg p.o. b.i.d. 10.Synthroid 75 mcg p.o. daily. 11.Advair 1 b.i.d. 12.Nitroglycerin 0.4 sublingually p.r.n. 13.Protonix 40 mg p.o. daily. 14.Vitamin B12, 1000 mg p.o. b.i.d. MMODL / ANDREN: [id number] /
[2021-03-05 09:01] LABS: Methylmalonic Acid 0.33 umol/L (<0.40)
[2021-03-05 13:02] LABS: Free Kappa Lt Chain Qnt, Serum 5.89 mg/dL (0.33-1.94)
== END 2021-03-04 12:36 | disposition home or self-care (01) | DRG 379 ==
LOC: EC 11:00 → 6NMEDSUR 13:48 → OBSVTOIN 03-02 13:24
PROVIDERS: ADMIT Family Medicine; ATTEND Family Medicine
DX: K92.2 Gastrointestinal hemorrhage, unspecified (principal); D50.0 Iron deficiency anemia secondary to blood loss (chronic); E78.5 Hyperlipidemia, unspecified; F03.90 Unspecified dementia, unspecified severity, without behavioral disturbance, psychotic disturbance, mood disturbance, and anxiety; I10 Essential (primary) hypertension; I25.10 Atherosclerotic heart disease of native coronary artery without angina pectoris; J44.9 Chronic obstructive pulmonary disease, unspecified; K21.9 Gastro-esophageal reflux disease without esophagitis; K44.9 Diaphragmatic hernia without obstruction or gangrene; Z79.51 Long term (current) use of inhaled steroids; Z79.899 Other long term (current) drug therapy; Z79.890 Hormone replacement therapy; Z87.891 Personal history of nicotine dependence; Z96.642 Presence of left artificial hip joint; E03.9 Hypothyroidism, unspecified; D53.9 Nutritional anemia, unspecified; H91.90 Unspecified hearing loss, unspecified ear; E53.8 Deficiency of other specified B group vitamins
CPT/HCPCS: 36415; 71046; 80053; 82607; 82728; 82747; 83540; 83550; 83735; 83883; 83921; 84165; 85025; 85045; 85610; 85730; 86334; 86850; 86900; 86901; 94640; 99285

== ENCOUNTER → 2021-04-22 | Outpatient (CLI) | payer MEDICARE | END | disposition home or self-care (01) | LOC: LABWHC1 14:05 | PROVIDERS: ATTEND Nurse Practitioner | DX: Z20.822 Contact with and (suspected) exposure to COVID-19 (principal); J06.9 Acute upper respiratory infection, unspecified | CPT/HCPCS: 87502; U0003; U0005 ==

== ENCOUNTER → 2021-08-12 | Outpatient (CLI) | payer MEDICARE ==
--- NOTE | 2021-08-12 16:19 | US ---
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 TECHNIQUE: Multiple sonographic images of the thyroid gland are obtained. FINDINGS: GLAND SIZE: Right Lobe: 2.8 x 1.1 x 1.2 cm Overall Parenchyma: homogenous Left Lobe: 2.7 x 1.4 x 1.1 cm Overall Parenchyma: homogeneous Isthmus Thickness: 0.3 cm NODULES RIGHT: # of nodules measured on right: 1 1. 1.2 X 1.1 x 1.0 cm, lower pole, mixed cystic and solid, primarily solid isoechoic nodule, which is wider than tall, with smooth margins, without echogenic foci. Prior size: 1.2 x 0.8 x 1.2 cm LEFT: # of nodules measured on left: 0 ISTHMUS: # of nodules measured in the isthmus: 0 Bilateral neck scanned: no evidence of lymphadenopathy. IMPRESSION: 1. Small overall size of the thyroid gland. 2. Solitary TR3 right lower pole nodule is stable at 1.2 cm.
[2021-08-13 01:00] LABS: T4, Free (Free Thyroxine) 1.52 ng/dL (0.800-1.800)
== END | disposition home or self-care (01) ==
LOC: RADUSWWP 13:41
PROVIDERS: ATTEND Internal Medicine Endocrinology, Diabetes & Metabolism
DX: E04.1 Nontoxic single thyroid nodule (principal)
CPT/HCPCS: 76536; 84439; 84443

== ENCOUNTER 2022-01-10 09:27 | Observation (INO) | payer OTHER, MEDICARE ==
[2022-01-10] MEDS ORDERED: ASPIRIN 81 MG PO STA (09:39)
[2022-01-10] MEDS ORDERED: NITROGLYCERIN OINT 1 INCH/GM PACKET TOPICAL STA (09:39)
--- NOTE | 2022-01-10 09:41 | ED ---
General Adult HPI - General Chief complaint: Chest Pain Stated complaint: Chest pain Time Seen by Provider: 01/10/22 09:34 Source: patient, RN notes reviewed Mode of arrival: wheelchair Limitations: no limitations - History of Present Illness Initial comments: Patient is a pleasant 89-year-old male presenting to the emergency Department with chest discomfort. Patient had some discomfort intermittently through the night and this morning. Discomfort is now resolved. Discomfort was 4/10. Discomfort feels like heaviness. Discomfort is somewhat similar to previous cardiac problems. No associated dyspnea, nausea, or diaphoresis. No leg pain or leg swelling. - Related Data Home Medications Medication Instructions Recorded Confirmed Multivitamin [Men's Multi-Vitamin] 1 tab PO HS 08/03/14 03/01/21 Atorvastatin Calcium [Lipitor] 40 mg PO DAILY 12/11/16 03/01/21 Metoprolol Tartrate [Lopressor] 25 mg PO BID 08/12/17 03/01/21 Docusate [Colace] 100 mg PO HS 07/28/20 03/01/21 Donepezil [Aricept] 5 mg PO DAILY 07/28/20 03/01/21 Memantine [Namenda] 10 mg PO BID 07/28/20 03/01/21 Enalapril Maleate 2.5 mg PO DAILY 03/01/21 03/01/21 Fluticasone Propion/Salmeterol 1 puff INHALATION RT-BID 03/01/21 03/01/21 [Advair Hfa 115-21 Mcg Inhaler] Levothyroxine Sodium [Synthroid] 75 mcg PO DAILY 03/01/21 03/01/21 Previous Rx's Medication Instructions Recorded Nitroglycerin Sl Tabs [Nitrostat] 0.4 mg SUBLINGUAL Q5M PRN #25 tab 08/05/14 Cyanocobalamin [Vitamin B-12] 1,000 mcg PO DAILY #30 tab 03/04/21 Pantoprazole Sodium [Protonix] 40 mg PO DAILY #30 tablet. 03/04/21 Allergies Allergy/AdvReac Type Severity Reaction Status Date / Time adhesive Allergy Rash/Hives-SEE Verified 01/10/22 09:29 COMMENT Review of Systems ROS Statement: Those systems with pertinent positive or pertinent negative responses have been documented in the HPI. ROS Other: All systems not noted in ROS Statement are negative. Constitutional: Denies: fever Eyes: Denies: eye pain ENT: Denies: ear pain Respiratory: Denies: cough Cardiovascular: Reports: as per HPI, chest pain Endocrine: Denies: fatigue Gastrointestinal: Denies: abdominal pain Genitourinary: Denies: dysuria Musculoskeletal: Denies: back pain Skin: Denies: rash Past Medical History Past Medical History: Chest Pain / Angina, COPD, GERD/Reflux, Hypertension Additional Past Medical History / Comment(s): cardiac cath with PTCA. History of Any Multi-Drug Resistant Organisms: None Reported Past Surgical History: Cholecystectomy, Heart Catheterization, Hernia Repair, Joint Replacement, Orthopedic Surgery Additional Past Surgical History / Comment(s): 08/04/14 Cardiac cath with PTCA. LEFT FEMUR ORIF, PARTIAL LT HIP REPLACEMENT, NIKO CAT SX Past Anesthesia/Blood Transfusion Reactions: No Reported Reaction Past Psychological History: No Psychological Hx Reported Smoking Status: Never smoker Past Alcohol Use History: Daily Past Drug Use History: None Reported - Past Family History Father Family Medical History: No Reported History Mother Family Medical History: No Reported History General Exam Limitations: no limitations General appearance: alert, in no apparent distress Head exam: Present: normocephalic Eye exam: Present: normal appearance Neck exam: Present: normal inspection Respiratory exam: Present: normal lung sounds bilaterally. Absent: chest wall tenderness Cardiovascular Exam: Present: regular rate, normal rhythm Expanded Peripheral pulses: 2+: Radial (R), Radial (L), Posterior Tibialis (R), Posterior Tibialis (L), Dorsalis Pedis (R), Dorsalis Pedis (L) GI/Abdominal exam: Present: soft. Absent: tenderness Extremities exam: Present: normal inspection. Absent: pedal edema, calf tenderness Neurological exam: Present: alert Psychiatric exam: Present: normal affect, normal mood Skin exam: Present: normal color Course Vital Signs 01/10/22 09:30 Temperature 97.8 F Pulse Rate 63 Respiratory 16 Rate Blood Pressure 130/74 O2 Sat by Pulse 98 Oximetry EKG Findings - EKG Comments: EKG Findings:: Size pericardial 359. CA 170. QRS 149. QT 454. QTC 453. Normal axis. Right bundle branch block. No acute ST change. Medical Decision Making - Medical Decision Making Patient reevaluated and resting comfortably in bed. Patient and family updated on results and plan. Dr. Madrigal has been paged for admission covering Dr. Guevara. - Lab Data Result diagrams: 01/10/22 09:53 01/10/22 09:53 Lab Results 01/10/22 01/10/22 01/10/22 Range/Units 09:53 09:53 09:53 WBC 7.7 (3.8-10.6) k/uL RBC 4.33 (4.30-5.90) m/uL Hgb 14.9 (13.0-17.5) gm/dL Hct 43.0 (39.0-53.0) % MCV 99.3 (80.0-100.0) fL MCH 34.5 (25.0-35.0) pg MCHC 34.8 (31.0-37.0) g/dL RDW 12.6 (11.5-15.5) % Plt Count 151 (150-450) k/uL MPV 8.2 Neutrophils % 77 % Lymphocytes % 11 % Monocytes % 7 % Eosinophils % 4 % Basophils % 1 % Neutrophils # 5.9 (1.3-7.7) k/uL Lymphocytes # 0.8 L (1.0-4.8) k/uL Monocytes # 0.5 (0-1.0) k/uL Eosinophils # 0.3 (0-0.7) k/uL Basophils # 0.1 (0-0.2) k/uL PT 11.4 (9.0-12.0) sec INR 1.1 (<1.2) APTT 25.8 (22.0-30.0) sec Sodium 140 (137-145) mmol/L Potassium 4.0 (3.5-5.1) mmol/L Chloride 110 H (98-107) mmol/L Carbon Dioxide 24 (22-30) mmol/L Anion Gap 6 mmol/L BUN 20 (9-20) mg/dL Creatinine 0.98 (0.66-1.25) mg/dL Est GFR (CKD-EPI)AfAm 79 (>60 ml/min/1.73 sqM) Est GFR (CKD-EPI)NonAf 69 (>60 ml/min/1.73 sqM) Glucose 141 H (74-99) mg/dL Calcium 8.2 L (8.4-10.2) mg/dL Magnesium 2.1 (1.6-2.3) mg/dL Total Bilirubin 0.5 (0.2-1.3) mg/dL AST 35 (17-59) U/L ALT 20 (4-49) U/L Alkaline Phosphatase 93 (38-126) U/L Troponin I (0.000-0.034) ng/mL Total Protein 6.1 L (6.3-8.2) g/dL Albumin 3.3 L (3.5-5.0) g/dL Amylase 253 H (30-110) U/L Lipase 1349 H (23-300) U/L 01/10/22 Range/Units 09:53 WBC (3.8-10.6) k/uL RBC (4.30-5.90) m/uL Hgb (13.0-17.5) gm/dL Hct (39.0-53.0) % MCV (80.0-100.0) fL MCH (25.0-35.0) pg MCHC (31.0-37.0) g/dL RDW (11.5-15.5) % Plt Count (150-450) k/uL MPV Neutrophils % % Lymphocytes % % Monocytes % % Eosinophils % % Basophils % % Neutrophils # (1.3-7.7) k/uL Lymphocytes # (1.0-4.8) k/uL Monocytes # (0-1.0) k/uL Eosinophils # (0-0.7) k/uL Basophils # (0-0.2) k/uL PT (9.0-12.0) sec INR (<1.2) APTT (22.0-30.0) sec Sodium (137-145) mmol/L Potassium (3.5-5.1) mmol/L Chloride (98-107) mmol/L Carbon Dioxide (22-30) mmol/L Anion Gap mmol/L BUN (9-20) mg/dL Creatinine (0.66-1.25) mg/dL Est GFR (CKD-EPI)AfAm (>60 ml/min/1.73 sqM) Est GFR (CKD-EPI)NonAf (>60 ml/min/1.73 sqM) Glucose (74-99) mg/dL Calcium (8.4-10.2) mg/dL Magnesium (1.6-2.3) mg/dL Total Bilirubin (0.2-1.3) mg/dL AST (17-59) U/L ALT (4-49) U/L Alkaline Phosphatase (38-126) U/L Troponin I <0.012 (0.000-0.034) ng/mL Total Protein (6.3-8.2) g/dL Albumin (3.5-5.0) g/dL Amylase (30-110) U/L Lipase (23-300) U/L - Radiology Data Radiology results: image reviewed (Chest x-ray shows no acute process. Possible asbestosis-related disease.) Disposition Clinical Impression: Chest pain, Pancreatitis Disposition: ADMITTED IP TO THIS HOSP Is patient prescribed a controlled substance at d/c from ED?: No Referrals: Bowen Guevara MD [Primary Care Provider] - 1-2 days Time of Disposition: 11:14
[2022-01-10 10:08] LABS: Basophils # (A) 0.1 k/uL (0-0.2); Basophils % (A) 1 %; Eosinophils # (A) 0.3 k/uL (0-0.7); Eosinophils % (A) 4 %; HGB 14.9 gm/dL (13.0-17.5); Lymphocytes # (A) 0.8 k/uL (1.0-4.8); Lymphocytes % (A) 11 %; MCH 34.5 pg (25.0-35.0); MCHC 34.8 g/dL (31.0-37.0); MCV 99.3 fL (80.0-100.0); Mean Platelet Volume 8.2; Monocytes # (A) 0.5 k/uL (0-1.0); Monocytes % (A) 7 %; Neutrophils # (A) 5.9 k/uL (1.3-7.7); Neutrophils % (A) 77 %; Platelet Count 151 k/uL (150-450); RBC 4.33 m/uL (4.30-5.90); RDW 12.6 % (11.5-15.5); WBC 7.7 k/uL (3.8-10.6)
[2022-01-10 10:16] LABS: INR 1.1 (<1.2)
[2022-01-10 10:17] LABS: Partial Thromboplastin Time 25.8 sec (22.0-30.0); Prothrombin Time 11.4 sec (9.0-12.0)
[2022-01-10 10:20] LABS: Albumin 3.3 g/dL (3.5-5.0); Calcium 8.2 mg/dL (8.4-10.2); Magnesium 2.1 mg/dL (1.6-2.3); Total Bilirubin 0.5 mg/dL (0.2-1.3); Total Protein 6.1 g/dL (6.3-8.2)
--- NOTE | 2022-01-10 10:32 | XR ---
EXAMINATION TYPE: XR chest 2V DATE OF EXAM: 01/10/2022 COMPARISON: Chest x-ray 03/01/2021, CT 08/25/2020 HISTORY: Chest pain TECHNIQUE: Frontal and lateral views of the chest are obtained. FINDINGS: There is no focal air space opacity, pleural effusion, or pneumothorax seen. The cardiac silhouette size is within normal limits. Prominent lung volumes are consistent with underlying COPD. There is thoracic spondylosis. Retrocardiac density with central lucency most typical of hiatal herni a with partial intrathoracic stomach. There are overlying leads. Technique is somewhat apical lordoti c. Aorta is dense and ectatic. There are coronary artery calcifications. The osseous structures are i ntact. Calcified pleural plaque posterior pleural surfaces noted inferiorly. IMPRESSION: No acute cardiopulmonary process. Coronary artery disease, emphysema. Correlate for poss ible asbestos related disease. Additional findings above
[2022-01-10] MEDS ORDERED: MORPHINE SULFATE 4 MG/ML SYRINGE IV PRN (11:15)
[2022-01-10] MEDS ORDERED: NALOXONE 0.4 MG/ML 1 ML VIAL IV PRN (11:15)
[2022-01-10] MEDS: PANTOPRAZOLE 40 MG/10 ML VIAL IV SCH (12:19)
[2022-01-10] MEDS: SODIUM CHLORIDE 0.9% 1,000 ML IV SCH (12:19)
--- NOTE | 2022-01-10 15:53 | P.GSCN ---
History of Present Illness Consult date: 01/10/22 Reason for Consult: Pancreatitis History of present illness: The patient's a 89-year-old man who presented to the ER with chest discomfort through the night and was concerned that there could be cardiac issues. With his workup he was found to have pancreatitis. Patient is hard of hearing so history is a little difficult to obtain but denies any prior episodes of pancreatitis. He has had prior cholecystectomy. Does have a history of alcohol use Review of Systems All systems: negative Past Medical History Past Medical History: Coronary Artery Disease (CAD), Chest Pain / Angina, Heart Failure, COPD, Dementia, GERD/Reflux, Hyperlipidemia, Hypertension, Thyroid Disorder Additional Past Medical History / Comment(s): Cardiomyopathy, anemia, B12 deficiency, has had iron infusions in the past and follows with Dr. Nolasco every 6 months, hiatal hernia, dysphagia in past, esophageal stricture/Schatzke ring, thyroid nodule. History of Any Multi-Drug Resistant Organisms: None Reported Past Surgical History: Cholecystectomy, Heart Catheterization With Stent, Hernia Repair, Joint Replacement, Orthopedic Surgery Additional Past Surgical History / Comment(s): 2015 PCI with stent, L femur ORIF, L hip partial replacement, EGDS/dilations, bilateral cataract removals. Past Anesthesia/Blood Transfusion Reactions: No Reported Reaction Date of Last Stent Placement:: 2014 Past Psychological History: No Psychological Hx Reported Additional Psychological History / Comment(s): Pt states he lives in a home with his daughter-Cecille. He states he is independent and performs his own ADL's. His ginette organizes his medications. He recently started in the [employer] program. He uses a cane to ambulate. He no longer drives, his ginette can drive. He has had home care in the past but none currently. 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 He quit smoking a pipe quite in 2015. Pt states he puts liqour into his tea to give it flavor but states he does not do this everyday, j ust occasionally. He doesn't know how much liqour he puts in his tea but ginette states it is less than a shot. He drinks Budlight about 3-4 beers a week. Past Drug Use History: None Reported - Past Family History Father Family Medical History: No Reported History Additional Family Medical History / Comment(s): Father was healthy. Mother History Unknown: Yes Family Medical History: Pneumonia Additional Family Medical History / Comment(s): Mother of pneumonia. Medications and Allergies Home Medications Medication Instructions Recorded Confirmed Type Atorvastatin Calcium [Lipitor] 40 mg PO DAILY 12/11/16 01/10/22 History Metoprolol Tartrate [Lopressor] 25 mg PO BID 08/12/17 01/10/22 History Memantine [Namenda] 10 mg PO BID 07/28/20 01/10/22 History Enalapril Maleate 2.5 mg PO DAILY 03/01/21 01/10/22 History Fluticasone Propion/Salmeterol 1 puff INHALATION RT-BID 03/01/21 01/10/22 History [Advair Hfa 115-21 Mcg Inhaler] Levothyroxine Sodium [Synthroid] 75 mcg PO DAILY 03/01/21 01/10/22 History Pantoprazole Sodium [Protonix] 40 mg PO DAILY #30 tablet. 03/04/21 01/10/22 Rx Donepezil [Aricept] 10 mg PO DAILY 01/10/22 01/10/22 History Ferrous Sulfate [Feosol] 325 mg PO DAILY 01/10/22 01/10/22 History Allergies Allergy/AdvReac Type Severity Reaction Status Date / Time adhesive Allergy Rash/Hives-SEE Verified 01/10/22 14:28 COMMENT Surgical - Exam Osteopathic Statement: *. No significant issues noted on an osteopathic structural exam other than those noted in the History and Physical/Consult. Vital Signs Temp Pulse Resp BP Pulse Ox 97.8 F 63 16 130/74 98 01/10/22 09:30 01/10/22 09:30 01/10/22 09:30 01/10/22 09:30 01/10/22 09:30 - General Age-appropriate, hard of hearing, no acute distress - Neck trachea midline - Abdomen Abdomen: soft, non tender, bowel sounds, no guarding, no rigid, no rebound, no distended Results - Labs 01/10/22 09:53 01/10/22 09:53 Abnormal Lab Results - Last 24 Hours (Table) 01/10/22 01/10/22 Range/Units 09:53 09:53 Lymphocytes # 0.8 L (1.0-4.8) k/uL Chloride 110 H (98-107) mmol/L Glucose 141 H (74-99) mg/dL Calcium 8.2 L (8.4-10.2) mg/dL Total Protein 6.1 L (6.3-8.2) g/dL Albumin 3.3 L (3.5-5.0) g/dL Amylase 253 H (30-110) U/L Lipase 1349 H (23-300) U/L Diabetes panel 01/10/22 Range/Units 09:53 Sodium 140 (137-145) mmol/L Potassium 4.0 (3.5-5.1) mmol/L Chloride 110 H (98-107) mmol/L Carbon Dioxide 24 (22-30) mmol/L BUN 20 (9-20) mg/dL Creatinine 0.98 (0.66-1.25) mg/dL Glucose 141 H (74-99) mg/dL Calcium 8.2 L (8.4-10.2) mg/dL AST 35 (17-59) U/L ALT 20 (4-49) U/L Alkaline Phosphatase 93 (38-126) U/L Total Protein 6.1 L (6.3-8.2) g/dL Albumin 3.3 L (3.5-5.0) g/dL Calcium panel 01/10/22 Range/Units 09:53 Calcium 8.2 L (8.4-10.2) mg/dL Albumin 3.3 L (3.5-5.0) g/dL Pituitary panel 01/10/22 Range/Units 09:53 Sodium 140 (137-145) mmol/L Potassium 4.0 (3.5-5.1) mmol/L Chloride 110 H (98-107) mmol/L Carbon Dioxide 24 (22-30) mmol/L BUN 20 (9-20) mg/dL Creatinine 0.98 (0.66-1.25) mg/dL Glucose 141 H (74-99) mg/dL Calcium 8.2 L (8.4-10.2) mg/dL Adrenal panel 01/10/22 Range/Units 09:53 Sodium 140 (137-145) mmol/L Potassium 4.0 (3.5-5.1) mmol/L Chloride 110 H (98-107) mmol/L Carbon Dioxide 24 (22-30) mmol/L BUN 20 (9-20) mg/dL Creatinine 0.98 (0.66-1.25) mg/dL Glucose 141 H (74-99) mg/dL Calcium 8.2 L (8.4-10.2) mg/dL Total Bilirubin 0.5 (0.2-1.3) mg/dL AST 35 (17-59) U/L ALT 20 (4-49) U/L Alkaline Phosphatase 93 (38-126) U/L Total Protein 6.1 L (6.3-8.2) g/dL Albumin 3.3 L (3.5-5.0) g/dL Assessment and Plan (1) Pancreatitis Current Visit: Yes Status: Acute Code(s): K85.90 - ACUTE PANCREATITIS WITHOUT NECROSIS OR INFECTION, UNSP SNOMED Code(s): 46018674 Plan: I would doubt choledocholithiasis as the cause of his elevated pancreatic enzymes. His transaminases and total bilirubin are normal. He has had a prior cholecystectomy. We'll order a diet. He can have today if the ultrasound is going to be performed otherwise once he returns from the ultrasound he can begin to eat. We'll follow up as needed
--- NOTE | 2022-01-10 17:04 | US ---
EXAMINATION TYPE: US abdomen limited DATE OF EXAM: 01/10/2022 COMPARISON: CT CLINICAL HISTORY: Pancreatitis. Pancreatitis. Hx cholecystectomy. EXAM MEASUREMENTS: Liver Length: 13.6 cm Right Kidney: 9.8 x 5.5 x 4.0 cm Limited due to gas. Pancreas: Obscured. Liver: Hyperechoic foci seen throughout the liver. Largest: 0.3 x 0.2 x 0.3 cm. Appears very coarse. Gallbladder: Surgically absent. Evidence for sonographic De La Cruz's sign: No CBD: Obscured. Right Kidney: Complex area seen mid: 1.4 x 1.3 x 1.4 cm. Hypoechoic area seen near anterior kidney b order: 2.8 x 3.3 x 0.7 cm. IMPRESSION: Exam limited by bowel gas. Small echogenic foci in the liver could relate to granulomatous disease. S mall hepatic calcifications evident on the old chest CT scan of 08/25/2020. No suspicious liver mass. No dilated ducts with common bile duct not seen. No ascites.
[2022-01-10] MEDS: SYMBICORT 160-4.5 MCG INHALER INHALATION SCH (20:32)
[2022-01-10] MEDS: METOPROLOL TARTRATE 25 MG TAB PO SCH (20:51)
[2022-01-10] MEDS: MEMANTINE 10 MG TAB PO SCH (20:52)
[2022-01-10] MEDS ORDERED: QUEtiapine 25 MG TAB PO SCH (21:00)
--- NOTE | 2022-01-10 21:36 | P.HPIM ---
History of Present Illness H&P Date: 01/10/22 Chief Complaint: Chest pain/abdominal pain 89-year-old male, with history of chest pain/angina, hypertension, COPD, GERD, presents to ED with chest discomfort. Patient had some discomfort intermittently through the night and this morning. Discomfort is now resolved. Discomfort was 4/10. Discomfort feels like heaviness. Discomfort is somewhat similar to previous cardiac problems. No associated dyspnea, nausea, or diaphoresis. No leg pain or leg swelling. EKG Findings:: Size pericardial 359. NJ 170. QRS 149. QT 454. QTC 453. Normal axis. Right bundle branch block. No acute ST change. Blood work reveals to previous exam 0.7, hemoglobin 14.9, platelet count of 151, 0.40 4.2, BUN/creatinine of 20/0.98 and blood glucose of 141, lipase is elevated at 1349; troponin is less than 0.012 Chest x-ray reveals no acute process with possible asbestos-related disease Review of Systems REVIEW OF SYSTEMS: CONSTITUTIONAL: No fever, no malaise, no fatigue. HEENT: No recent visual problems or hearing problems. Denied any sore throat. CARDIOVASCULAR: No chest pain, orthopnea, PND, no palpitations, no syncope. PULMONARY: No shortness of breath, no cough, no hemoptysis. GASTROINTESTINAL: No diarrhea, no nausea, no vomiting, no abdominal pain. NEUROLOGICAL: No headaches, no weakness, no numbness. HEMATOLOGICAL: Denies any bleeding or petechiae. GENITOURINARY: Denies any burning micturition, frequency, or urgency. MUSCULOSKELETAL/RHEUMATOLOGICAL: Denies any joint pain, swelling, or any muscle pain. ENDOCRINE: Denies any polyuria or polydipsia. The rest of the 14-point review of systems is negative. Past Medical History Past Medical History: Chest Pain / Angina, COPD, GERD/Reflux, Hypertension Additional Past Medical History / Comment(s): cardiac cath with PTCA. History of Any Multi-Drug Resistant Organisms: None Reported Past Surgical History: Cholecystectomy, Heart Catheterization, Hernia Repair, Joint Replacement, Orthopedic Surgery Additional Past Surgical History / Comment(s): 08/04/14 Cardiac cath with PTCA. LEFT FEMUR ORIF, PARTIAL LT HIP REPLACEMENT, NIKO CAT SX Past Anesthesia/Blood Transfusion Reactions: No Reported Reaction Past Psychological History: No Psychological Hx Reported Smoking Status: Never smoker Past Alcohol Use History: Daily Past Drug Use History: None Reported - Past Family History Father Family Medical History: No Reported History Mother Family Medical History: No Reported History Medications and Allergies Home Medications Medication Instructions Recorded Confirmed Type Atorvastatin Calcium [Lipitor] 40 mg PO DAILY 12/11/16 01/10/22 History Metoprolol Tartrate [Lopressor] 25 mg PO BID 08/12/17 01/10/22 History Memantine [Namenda] 10 mg PO BID 07/28/20 01/10/22 History Enalapril Maleate 2.5 mg PO DAILY 03/01/21 01/10/22 History Fluticasone Propion/Salmeterol 1 puff INHALATION RT-BID 03/01/21 01/10/22 History [Advair Hfa 115-21 Mcg Inhaler] Levothyroxine Sodium [Synthroid] 75 mcg PO DAILY 03/01/21 01/10/22 History Pantoprazole Sodium [Protonix] 40 mg PO DAILY #30 tablet. 03/04/21 01/10/22 Rx Donepezil [Aricept] 10 mg PO DAILY 01/10/22 01/10/22 History Ferrous Sulfate [Feosol] 325 mg PO DAILY 01/10/22 01/10/22 History Allergies Allergy/AdvReac Type Severity Reaction Status Date / Time adhesive Allergy Rash/Hives-SEE Verified 01/10/22 14:28 COMMENT Physical Exam Vitals: Vital Signs Temp Pulse Resp BP Pulse Ox 01/10/22 12:20 71 18 112/67 97 01/10/22 09:30 97.8 F 63 16 130/74 98 Intake and Output 01/09/22 01/10/22 01/10/22 22:59 06:59 14:59 Other: Weight 70.307 kg PHYSICAL EXAMINATION: GENERAL: The patient is alert and oriented x3, not in any acute distress. Well developed, well nourished. HEENT: Pupils are round and equally reacting to light. EOMI. No scleral icterus. No conjunctival pallor. Normocephalic, atraumatic. No pharyngeal erythema. No thyromegaly. CARDIOVASCULAR: S1 and S2 present. No murmurs, rubs, or gallops. PULMONARY: Chest is clear to auscultation, no wheezing or crackles. ABDOMEN: Soft, nontender, nondistended, normoactive bowel sounds. No palpable organomegaly. MUSCULOSKELETAL: No joint swelling or deformity. EXTREMITIES: No cyanosis, clubbing, or pedal edema. NEUROLOGICAL: Gross neurological examination did not reveal any focal deficits. SKIN: No rashes. Results CBC & Chem 7: 01/10/22 09:53 01/10/22 09:53 Labs: Abnormal Lab Results - Last 24 Hours (Table) 01/10/22 01/10/22 Range/Units 09:53 09:53 Lymphocytes # 0.8 L (1.0-4.8) k/uL Chloride 110 H (98-107) mmol/L Glucose 141 H (74-99) mg/dL Calcium 8.2 L (8.4-10.2) mg/dL Total Protein 6.1 L (6.3-8.2) g/dL Albumin 3.3 L (3.5-5.0) g/dL Amylase 253 H (30-110) U/L Lipase 1349 H (23-300) U/L Assessment and Plan Assessment: 1. Chest pain; atypical; doesn't seem to be related to; patient is currently chest pain-free; EKG completed in ED was unremarkable. Troponin negative - We will continue to monitor on telemetry; trend troponin; we will repeat EKG - Order 2-D echo for further evaluation of left ventricular function 2. Acute pancreatitis; patient has been made nothing by mouth; continue with IV fluids in form of normal saline at rate of 100 mL an hour; IV Protonix 40 mg daily; we will monitor serum lipase levels - Gen. surgery is consulted for further recommendations 3. Hypertension; metoprolol 25 mg twice a day along with enalapril 2.5 mg daily 4. Hyperlipidemia; Lipitor 40 mg daily 5. Hypothyroidism; levothyroxine 75 MCG daily 6. COPD/asthma; not in exacerbation; continue with home inhalers and monitor oxygen and supplement as needed 7. Dementia; continue with home dose of Aricept and Namenda; we will use Seroquel 25 mg for agitation and for sleep DVT prophylaxis; SCDs CODE STATUS; full code
[2022-01-11] MEDS: SODIUM CHLORIDE 0.9% 1,000 ML IV SCH ×2 (00:27→15:43)
[2022-01-11] MEDS ORDERED: LEVOTHYROXINE 75 MCG TAB PO SCH (06:30)
[2022-01-11] MEDS: SYMBICORT 160-4.5 MCG INHALER INHALATION SCH (07:54)
[2022-01-11] MEDS: PANTOPRAZOLE 40 MG/10 ML VIAL IV SCH (08:23)
[2022-01-11] MEDS: MEMANTINE 10 MG TAB PO SCH (08:23)
[2022-01-11] MEDS: METOPROLOL TARTRATE 25 MG TAB PO SCH (08:23)
[2022-01-11 08:43] LABS: Basophils # (A) 0.03 X 10*3/uL (0.00-0.10); Basophils % (A) 0.4 %; Eosinophils # (A) 0.29 X 10*3/uL (0.04-0.35); Eosinophils % (A) 3.8 %; HCT 42.3 % (39.6-50.0); Immature Grans, Automated 0.1 %; Lymphocytes # (A) 1.39 X 10*3/uL (0.90-5.00); Lymphocytes % (A) 18.1 %; MCH 32.4 pg (27.0-32.0); MCHC 33.1 g/dL (32.0-37.0); MCV 97.9 fL (80.0-97.0); Mean Platelet Volume 11.2 fL (9.5-12.2); Monocytes # (A) 0.77 X 10*3/uL (0.20-1.00); NRBC Per 100 WBC 0 /100 WBCS (0.0-0.0); Neutrophils % (A) 67.6 %; Platelet Count 159 X 10*3/uL (140-440); RBC 4.32 X 10*6/uL (4.40-5.60); RDW 12.7 % (11.5-14.5); WBC 7.69 X 10*3/uL (4.50-10.00)
[2022-01-11] MEDS ORDERED: lisinopriL 5 MG TAB PO SCH (09:00)
[2022-01-11] MEDS ORDERED: DONEPEZIL 10 MG TAB PO SCH (09:00)
[2022-01-11] MEDS ORDERED: FERROUS SULFATE 325 MG TAB PO SCH (09:00)
--- NOTE | 2022-01-11 09:10 | CA ---
Transthoracic Echo Report Name: Leo Samuels Age: 89 Gender: M : 1930 Exam Date: 01/11/2022 07:47 Exam Location: [place] [facility] Ht (in): 66 Wt (lb): 155 Ordering Physician: Hermila Pierce MD Attending/Referring Phys: [id number], Stan [employer] Feeder Ceci Woo RDCS Procedure CPT: Indications: Chest Pain Cardiac Hx: Technical Quality: Good Contrast 1: Total Dose (mL): Contrast 2: Total Dose (mL): MEASUREMENTS (Male / Female) Normal Values 2D ECHO LV Diastolic Diameter PLAX 4.3 cm 4.2 - 5.9 / 3.9 - 5.3 cm LV Systolic Diameter PLAX 2.3 cm IVS Diastolic Thickness 1.1 cm 0.6 - 1.0 / 0.6 - 0.9 cm LVPW Diastolic Thickness 1.3 cm 0.6 - 1.0 / 0.6 - 0.9 cm LV Relative Wall Thickness 0.6 LVOT Diameter 1.7 cm LA Volume 33.4 cm??? 18 - 58 / 22 - 52 cm??? M-MODE Aortic Root Diameter MM 3.4 cm LA Systolic Diameter MM 1.9 cm LA Ao Ratio MM 0.6 MV E Point Septal Separation 0.9 cm AV Cusp Separation MM 1.5 cm DOPPLER AV Peak Velocity 246.2 cm/s AV Peak Gradient 24.2 mmHg AV Mean Velocity 208.9 cm/s AV Mean Gradient 18.7 mmHg AV Velocity Time Integral 68.4 cm AI Peak Velocity 348.6 cm/s AI Peak Gradient 48.6 mmHg AI Pressure Half Time 590.8 ms LVOT Peak Velocity 64.6 cm/s LVOT Peak Gradient 1.7 mmHg AV Area Cont Eq pk 0.6 cm??? MV Area PHT 2.9 cm??? MR Peak Velocity 258.4 cm/s MR Peak Gradient 26.7 mmHg Mitral E Point Velocity 97.7 cm/s Mitral A Point Velocity 112.3 cm/s Mitral E to A Ratio 0.9 MV Deceleration Time 257.7 ms MV E' Velocity 3.8 cm/s Mitral E to MV E' Ratio 25.5 TR Peak Velocity 201.6 cm/s TR Peak Gradient 16.3 mmHg Right Ventricular Systolic Press 20.0 mmHg FINDINGS Left Ventricle Mildly increased septal wall thickness. Left ventricular ejection fraction is estimated at 55-60 %. Left ventricular cavity size normal. Grade 1 diastolic dysfunction. Right Ventricle The right ventricle is normal in size and function. Right Atrium The right atrium is normal in size. Left Atrium The left atrium is normal in size. Mitral Valve Structurally normal mitral valve without significant stenosis or prolapse. There is mild mitral regurgitation. Aortic Valve Diffuse thickening of the aortic valve cusps with reduced excursion. Mild aortic stenosis with a peak gradient of 24 mmHg and a mean gradient of 18 mmHg. . There is mild aortic regurgitation. Tricuspid Valve Structurally normal tricuspid valve without significant stenosis. Pulmonary artery systolic pressure is normal. Mild tricuspid regurgitation. Pulmonic Valve Structurally normal pulmonic valve without significant stenosis. There is no pulmonic regurgitation. Pericardium Normal pericardium without effusion. Aorta Normal aortic root dimension. CONCLUSIONS Normal left ventricular ejection fraction 55-60% Grade 1 diastolic dysfunction Mild mitral regurgitation Mild to moderate aortic stenosis Mild aortic regurgitation Mild tricuspid regurgitation Normal RVSP No pericardial effusion Previewed by: Dr. Trell Huang DO (Electronically Signed) Final Date: 11 January 2022 09:09
[2022-01-11 09:28] LABS: ALT 20 U/L (10-49); AST 28 U/L (14-35); African American GFR (CKD) 75.2 (60.0-200.0); Albumin 3.2 g/dL (3.8-4.9); Albumin/Globulin Ratio 1.51 (1.60-3.17); Alkaline Phosphatase 90 U/L (41-126); Amylase 148 U/L (23-121); BUN/Creat Ratio 15.49 Ratio (12.00-20.00); Bilirubin, Conjugated <0.20 mg/dL (0.20-0.40); Blood Urea Nitrogen 15.8 mg/dL (9.0-27.0); Calcium 8.3 mg/dL (8.7-10.3); Carbon Dioxide 25.8 mmol/L (20.0-27.5); Chloride 109 mmol/L (96-109); Globulin 2.2 g/dL (1.6-3.3); Glucose 86 mg/dL (70-110); LDH 219 U/L (120-246); Lipase 93 U/L (14-60); Non-African American GFR(CKD) 64.9 (60.0-200.0); Potassium 3.9 mmol/L (3.5-5.5); Sodium 141 mmol/L (135-145); Total Protein 5.4 g/dL (6.2-8.2)
[2022-01-11 14:16] VITALS: BP 143/86; PULSE 60; RESP 18; TEMP 97.8
--- NOTE | 2022-01-11 16:29 | P.DS ---
Providers Date of admission: 01/10/22 11:15 Expected date of discharge: 01/11/22 Attending physician: Hermila Pierce MD Consults: 01/10/22 11:15 Consult Physician Routine Consulting Provider: Dina Portillo Consult Reason/Comments: pancreatitis Do you want consulting provider notified?: Yes Primary care physician: Bowen Guevara [facility] Course: 89-year-old male, with history of chest pain/angina, hypertension, COPD, GERD, presents to ED with chest discomfort. Patient had some discomfort intermittently through the night and this morning. Discomfort is now resolved. Discomfort was 4/10. Discomfort feels like heaviness. Discomfort is somewhat similar to previous cardiac problems. No associated dyspnea, nausea, or diaphoresis. No leg pain or leg swelling. EKG Findings:: Size pericardial 359. CO 170. QRS 149. QT 454. QTC 453. Normal axis. Right bundle branch block. No acute ST change. 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 Chest pain; atypical; doesn't seem to be related to; patient is currently chest pain-free; EKG completed in ED was unremarkable. Troponin negative - We will continue to monitor on telemetry; trend troponin; we will repeat EKG - Order 2-D echo for further evaluation of left ventricular function 2. Acute pancreatitis; patient has been made nothing by mouth; continue with IV fluids in form of normal saline at rate of 100 mL an hour; IV Protonix 40 mg daily; we will monitor serum lipase levels - Gen. surgery is consulted for further recommendations 3. Hypertension; metoprolol 25 mg twice a day along with enalapril 2.5 mg daily 4. Hyperlipidemia; Lipitor 40 mg daily 5. Hypothyroidism; levothyroxine 75 MCG daily 6. COPD/asthma; not in exacerbation; continue with home inhalers and monitor oxygen and supplement as needed 7. Dementia; continue with home dose of Aricept and Namenda; we will use Seroquel 25 mg for agitation and for sleep Patient was started on clear liquid diet and was gradually advanced to regular; lipase continued to trend down; patient insisting on being discharged today and recommended increase fluid intake and to continue with regular diet as possible Patient remained stable and lipase continued to trend - Patient became somewhat agitated; which is already with IV Ativan - Patient to be discharged home with daughter with follow-up as an outpatient Plan - Discharge Summary Discharge Rx Participant: No New Discharge Prescriptions: Continue Atorvastatin Calcium [Lipitor] 40 mg PO DAILY Metoprolol Tartrate [Lopressor] 25 mg PO BID Memantine [Namenda] 10 mg PO BID Ferrous Sulfate [Iron (65 MG Elemental)] 325 mg PO DAILY Enalapril Maleate 2.5 mg PO DAILY Fluticasone Propion/Salmeterol [Advair Hfa 115-21 Mcg Inhaler] 1 puff INHALATION RT-BID Levothyroxine Sodium [Synthroid] 75 mcg PO DAILY Pantoprazole Sodium [Protonix] 40 mg PO DAILY #30 tablet. Donepezil [Aricept] 10 mg PO DAILY Discharge Medication List Atorvastatin Calcium [Lipitor] 40 mg PO DAILY 12/11/16 [History] Metoprolol Tartrate [Lopressor] 25 mg PO BID 08/12/17 [History] Memantine [Namenda] 10 mg PO BID 07/28/20 [History] Enalapril Maleate 2.5 mg PO DAILY 03/01/21 [History] Fluticasone Propion/Salmeterol [Advair Hfa 115-21 Mcg Inhaler] 1 puff INHALATION RT-BID 03/01/21 [History] Levothyroxine Sodium [Synthroid] 75 mcg PO DAILY 03/01/21 [History] Pantoprazole Sodium [Protonix] 40 mg PO DAILY #30 tablet. 03/04/21 [Rx] Donepezil [Aricept] 10 mg PO DAILY 01/10/22 [History] Ferrous Sulfate [Iron (65 MG Elemental)] 325 mg PO DAILY 01/10/22 [History] Follow up Appointment(s)/Referral(s): Bowen Guevara MD [Primary Care Provider] - 1-2 days Discharge Disposition: HOME SELF-CARE
== END 2022-01-11 16:41 | disposition home or self-care (01) ==
LOC: EC 09:27 → 6NMEDSUR 11:15
PROVIDERS: ADMIT Internal Medicine; ATTEND Internal Medicine
DX: R07.89 Other chest pain (principal); K85.90 Acute pancreatitis without necrosis or infection, unspecified; I11.0 Hypertensive heart disease with heart failure; I50.9 Heart failure, unspecified; J44.9 Chronic obstructive pulmonary disease, unspecified; K21.9 Gastro-esophageal reflux disease without esophagitis; I45.10 Unspecified right bundle-branch block; E03.9 Hypothyroidism, unspecified; F03.90 Unspecified dementia, unspecified severity, without behavioral disturbance, psychotic disturbance, mood disturbance, and anxiety; I08.3 Combined rheumatic disorders of mitral, aortic and tricuspid valves; H91.90 Unspecified hearing loss, unspecified ear; I25.10 Atherosclerotic heart disease of native coronary artery without angina pectoris; E78.5 Hyperlipidemia, unspecified; E04.1 Nontoxic single thyroid nodule; I42.9 Cardiomyopathy, unspecified; D64.9 Anemia, unspecified; Z71.9 Counseling, unspecified; Z96.642 Presence of left artificial hip joint; Z95.5 Presence of coronary angioplasty implant and graft; Z87.891 Personal history of nicotine dependence; Z79.899 Other long term (current) drug therapy; Z79.890 Hormone replacement therapy; Z90.49 Acquired absence of other specified parts of digestive tract; Z91.048 Other nonmedicinal substance allergy status; Z83.6 Family history of other diseases of the respiratory system
CPT/HCPCS: 96376; 96361 ×2; 96374; 99285; 36415; 94640 ×2; 94760; 93005; 93306; 80053 ×2; 82150 ×2; 82248; 83615; 83690 ×2; 83735; 84484; 85025 ×2; 85610; 85730; 71046; 76705; G0378 ×2; C9113 ×2